=== PATIENT | female | born 1965 | race Caucasian/White ===

== ENCOUNTER 2016-04-22 11:55 | Emergency (ER) | payer MEDICARE, OTHER ==
[2016-04-22 12:04] VITALS: BP 129/93
[2016-04-22] MEDS ORDERED: NALBUPHINE HCL 20 MG/ML AMPUL IV ONE (12:46)
[2016-04-22] MEDS ORDERED: NORMAL SALINE 1,000 ML IV ONE (12:46)
[2016-04-22] MEDS ORDERED: diphenhydrAMINE HCL 50 MG/ML VIAL IV ONE (12:46)
[2016-04-22] MEDS ORDERED: PROMETHAZINE HCL 25 MG in DEXTROSE 5 % IN WATER 50 ML IV ONE ×2 (12:46)
[2016-04-22] MEDS ORDERED: NALBUPHINE HCL 20 MG/ML AMPUL ONE (12:53)
[2016-04-22] MEDS ORDERED: diphenhydrAMINE HCL 50 MG/ML VIAL ONE (12:53)
--- NOTE | 2016-04-22 13:29 | ERNOTE ---
Headache ER HPI - Narrative Date of Service: 04/22/16 - General Presenting Symptoms: headache Time Seen by Provider: 04/22/16 12:42 Source: patient Exam Limitations: no limitations - Immun/Allergies/Home Medications Immunizations: IMMUNIZATION HX Immunizations Up to Date Yes History of Influenza Vaccine No Hx Pneumococcal Vaccination No Allergies/Adverse Reactions: Allergies diclofenac sodium [From Voltaren] Allergy (Intermediate, Verified 04/22/16 12:04 ) seizure paroxetine HCl [From Paxil] Allergy (Mild, Verified 04/22/16 12:04) rash venlafaxine HCl [From Effexor] Allergy (Mild, Verified 04/22/16 12:04) rash ziprasidone HCl [From Geodon] Adverse Reaction (Severe, Verified 04/22/16 12:04) Itching ziprasidone mesylate [From Geodon] Adverse Reaction (Severe, Verified 04/22/16 12:04) Itching sumatriptan [From Imitrex] Adverse Reaction (Intermediate, Verified 04/22/16 12: 04) Nausea sumatriptan succinate [From Imitrex] Adverse Reaction (Intermediate, Verified 12:04) Nausea ketorolac tromethamine [From Toradol] Adverse Reaction (Mild, Verified 04/22/16 12:04) Vomiting tramadol Adverse Reaction (Mild, Verified 04/22/16 12:04) Vomiting Home Medications: HOME MEDICATIONS ALPRAZolam [Xanax] 1 mg PO QID #120 tab 03/23/15 [Last Taken 04/06/15] Citalopram Hydrobromide [Citalopram HBr] 20 mg PO DAILY 01/22/16 [Last Taken 02/25] Albuterol Sulfate/Ipratropium [Duoneb 2.5-0.5MG/3ML Soln] 3 ml IH QID #120 vial 03/01/16 [Last Taken Unknown] Nebulizer [Compact Ultrasonic Nebulizer] 1 each MC QID #1 kit 03/01/16 [Last Taken Unknown] - History of Present Illness Narrative: Pt. comes in with c/o R temporal and parietal headache that started three days ago. Pt. states that she has had migraines in the past and this feels similar with nausea, pain, photophobia and eye pain. Pt. denies that this is the worst headache ever or vision changes. Review of Systems - Review of Systems Constitutional: Present: no symptoms reported. Absent: recent illness, fever, chills, fatigue, malaise EYE: Present: no symptoms reported ENT: Present: no symptoms reported Respiratory: Present: no symptoms reported. Absent: shortness of breath, cough , wheezing Cardiology: Present: no symptoms reported Gastrointestinal/Abdominal: Present: no symptoms reported. Absent: nausea, vomiting, diarrhea Genitourinary: Present: no symptoms reported Musculoskeletal: Present: no symptoms reported. Absent: back pain, joint pain Skin: Present: no symptoms reported Neurological: Present: headache. Absent: dizziness/light-headedness, numbness, tingling All Other Systems: All systems neg except as marked - Patient's Past Medical History Patient History - Medical: Anxiety, Depression Patient History - Cardiac/Respiratory: Asthma, COPD Patient History - Cancer: No Hx of Cancer Patient History - Surgical Procedures: - Family History Mother Family History - Medical: Diabetes Type 2 Insulin Dependent, Other - Social History Living Situations: home Does anyone smoke in the home?: Yes Alcohol Use: heavy Drug Use: marijuana, other Physical Exam - Physical Exam General Appearance: Present: wd/wn, alert, no apparent distress Eye Exam: Normal inspection: bilateral, PERRL: bilateral, EOMI: bilateral Ears, Nose, Throat: Present: normal ENT inspection, hearing grossly normal, normal pharynx Neck: Present: normal inspection, nontender. 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 Absent: pallor, skin rash ED Progress - Vital Signs Patient's Vital Signs:: I have reviewed the patient's vital signs. Vital Signs: Vital Signs 04/22/16 11:58 Temperature 35.7 C L Pulse Rate 83 Respiratory 12 Rate Blood Pressure 129/93 O2 Sat by Pulse 97 Oximetry - Progress/Reassessment Chief Complaint: Headache Progress:: Improved Departure Clinical Impression: Migraine Qualifiers: Migraine type: without aura Status migrainosus presence: without status migrainosus Intractability: not intractable Qualified Code(s): G43.009 - Migraine without aura, not intractable, without status migrainosus - Departure Disposition: Home self-care Condition: Good Instructions: Recurrent Migraine Headache, [id number] Additional Instructions: Please follow up with your primary provider in 2-3 days
== END 2016-04-22 14:30 | disposition home or self-care (01) ==
LOC: ER 11:55
DX: G43.009 Migraine without aura, not intractable, without status migrainosus (principal); F41.1 Generalized anxiety disorder

== ENCOUNTER 2016-04-29 14:00 | Emergency (ER) | payer MEDICARE, OTHER ==
[2016-04-29 14:14] VITALS: BP 126/105
[2016-04-29] MEDS ORDERED: diphenhydrAMINE HCL 50 MG/ML VIAL IM ONE (14:57)
[2016-04-29] MEDS ORDERED: PROMETHAZINE HCL 25 MG/ML AMPUL IM ONE (14:57)
[2016-04-29] MEDS ORDERED: NALBUPHINE HCL 20 MG/ML AMPUL IM ONE (14:57)
--- NOTE | 2016-04-29 15:09 | ERNOTE ---
Headache ER HPI - Narrative Date of Service: 04/29/16 - General Presenting Symptoms: headache Time Seen by Provider: 04/29/16 14:51 Source: patient Exam Limitations: no limitations - Immun/Allergies/Home Medications Immunizations: IMMUNIZATION HX Immunizations Up to Date Yes History of Influenza Vaccine No Hx Pneumococcal Vaccination No Allergies/Adverse Reactions: Allergies diclofenac sodium [From Voltaren] Allergy (Intermediate, Verified 04/29/16 14:13 ) seizure paroxetine HCl [From Paxil] Allergy (Mild, Verified 04/29/16 14:13) rash venlafaxine HCl [From Effexor] Allergy (Mild, Verified 04/29/16 14:13) rash ziprasidone HCl [From Geodon] Adverse Reaction (Severe, Verified 04/29/16 14:13) Itching ziprasidone mesylate [From Geodon] Adverse Reaction (Severe, Verified 04/29/16 14:13) Itching sumatriptan [From Imitrex] Adverse Reaction (Intermediate, Verified 04/29/16 14: 13) Nausea sumatriptan succinate [From Imitrex] Adverse Reaction (Intermediate, Verified 14:13) Nausea ketorolac tromethamine [From Toradol] Adverse Reaction (Mild, Verified 04/29/16 14:13) Vomiting tramadol Adverse Reaction (Mild, Verified 04/29/16 14:13) Vomiting Home Medications: HOME MEDICATIONS ALPRAZolam [Xanax] 1 mg PO QID #120 tab 03/23/15 [Last Taken 04/06/15] Citalopram Hydrobromide [Citalopram HBr] 20 mg PO DAILY 01/22/16 [Last Taken 02/25] Albuterol Sulfate/Ipratropium [Duoneb 2.5-0.5MG/3ML Soln] 3 ml IH QID #120 vial 03/01/16 [Last Taken Unknown] Nebulizer [Compact Ultrasonic Nebulizer] 1 each MC QID #1 kit 03/01/16 [Last Taken Unknown] Butalb/Acetaminophen/Caffeine [Fioricet 50-300-40 mg Capsule] 1 each PO TID #6 capsule 04/29/16 [Last Taken Unknown] - Pain Pain Score: 8 - History of Present Illness Narrative: Patient comes due to a headache that is located on the R side of the head. Patient's pain is similar to previous headache. No fever, no trauma, no loss of consciousness, and no change on vision. Patient with no loss of force and sensation. Pain is similar to previous events. Timing of Headache: gradual, still present, persistent Context Headache: Absent: CO exposure, tick bite, insect bite, sick contact, meningitis exposure, recent head injury < 24 hrs ago, recent head injury > 24 hrs, recent travel-outside [place] Quality: Present: throbbing Severity Maximum: Present: severe Severity-Currently: Present: moderate Headache frequency: Present: frequent headaches, similar to previous headache Modifying Factors - (Improves): Reports: other - nothing Modifying Factors - (Worsens): Reports: exposure to light Associated Symptoms: Denies: fever/chills, nausea, vomiting, sweating, nasal congestion, nasal drainage, facial pain, fatigue, weakness, numbness/tingling, vision changes, confusion, light-headedness, dizziness, loss of consciousness, seizures, neck pain/stiffness, speech problems Exacerbated by:: Reports: light, noise, movement Prior Treament: Denies: recently seen Review of Systems - Review of Systems Constitutional: Absent: fever, weakness, malaise EYE: Absent: blurred vision, double vision, vision changes ENT: Absent: ear pain, ear discharge, pulling on ears, nose pain, nose congestion, nasal drainage, sore throat, throat swelling Respiratory: Present: no symptoms reported Cardiology: Present: no symptoms reported Gastrointestinal/Abdominal: Present: no symptoms reported Genitourinary: Present: no symptoms reported Musculoskeletal: Present: no symptoms reported Skin: Present: no symptoms reported Neurological: Present: headache. Absent: anxiety, depressed, dizziness/light- headedness, seizure, weakness, numbness, tingling, tremors, pre-existing deficit Endocrine: Present: no symptoms reported Hematologic/Lymphatic: Present: no symptoms reported Psych: Present: no symptoms reported - Patient's Past Medical History Patient History - Medical: Anxiety, Depression Patient History - Cardiac/Respiratory: Asthma, COPD Patient History - Cancer: No Hx of Cancer Patient History - Surgical Procedures: - Family History Mother Family History - Medical: Diabetes Type 2 Insulin Dependent, Other - Social History Living Situations: home Does anyone smoke in the home?: Yes Alcohol Use: heavy Drug Use: marijuana, other Physical Exam - Physical Exam General Appearance: Present: wd/wn, alert, no apparent distress Eye Exam: Normal inspection: bilateral, PERRL: bilateral, EOMI: bilateral Ears, Nose, Throat: Present: normal ENT inspection, hearing grossly normal Neck: Present: normal inspection, nontender Respiratory: Present: no respiratory distress, normal breath sounds, no accessory muscle use, chest nontender, lungs clear Cardiovascular/Chest: Present: regular rate, rhythm, no murmur, normal peripheral pulses Gastrointestinal/Abdominal: Present: normal bowel sounds, nontender, nondistended, soft, no organomegaly Extremity Exam: Present: normal inspection, non-tender, no edema, normal range of motion Neurological Exam: Present: alert, oriented, 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 Absent: normal cerebellar test, facial droop, motor weakness, disoriented to person, disoriented to time, disoriented to place, disoriented to situation DTR: N=norm/NB=norm/brisk/A=abs/DD=dull/dimin/HC=hyperactive: Bicep (R): Normal , Bicep (L): Normal, Knee (R): Normal, Knee (L): Normal Skin Exam: Absent: diaphoresis, cyanosis, jaundice, pallor, skin rash Lymphatic Exam: Present: no adenopathy ED Progress - Date and Time Seen: Date and Time: 04/29/16 15:04 Patient with a full mental status, no gross neurologic deficits, and with Hx of chronic headaches. Patient at the moment has no Hx of Tx, no fever, and no changes on her usual headache. Patient is to follow up with her PCP. - Vital Signs Patient's Vital Signs:: I have reviewed the patient's vital signs. Vital Signs: Vital Signs 04/29/16 14:11 Temperature 36.3 C L Pulse Rate 100 Respiratory 14 Rate Blood Pressure 126/105 O2 Sat by Pulse 97 Oximetry - Progress/Reassessment Chief Complaint: Headache - Transfer of Care Expected Disposition: Discharge Departure Clinical Impression: Migraine Qualifiers: Migraine type: with aura Status migrainosus presence: without status migrainosus Intractability: not intractable Qualified Code(s): G43.109 - Migraine with aura, not intractable, without status migrainosus - Departure Disposition: Home self-care Condition: Stable Instructions: General Headache Without Cause, Migraine Headache, [id number] Prescriptions: Butalb/Acetaminophen/Caffeine [Fioricet 50-300-40 mg Capsule] 1 each PO TID #6 capsule
[2016-04-29] MEDS ORDERED: PROMETHAZINE HCL 25 MG/ML AMPUL ONE (15:12)
[2016-04-29] MEDS ORDERED: NALBUPHINE HCL 20 MG/ML AMPUL ONE (15:12)
[2016-04-29] MEDS ORDERED: diphenhydrAMINE HCL 50 MG/ML VIAL ONE (15:12)
== END 2016-04-29 15:31 | disposition home or self-care (01) ==
LOC: ER 14:00
DX: G43.109 Migraine with aura, not intractable, without status migrainosus (principal)

== ENCOUNTER 2016-05-19 11:26 | Emergency (ER) | payer MEDICARE, OTHER ==
--- NOTE | 2016-05-19 13:22 | ERNOTE ---
Headache ER HPI - Narrative Date of Service: 05/19/16 - General Presenting Symptoms: "migraine" Time Seen by Provider: 05/19/16 13:00 Source: patient Exam Limitations: no limitations - Immun/Allergies/Home Medications Immunizations: IMMUNIZATION HX Immunizations Up to Date Yes History of Influenza Vaccine No Hx Pneumococcal Vaccination No Allergies/Adverse Reactions: Allergies diclofenac sodium [From Voltaren] Allergy (Intermediate, Verified 05/19/16 11:45 ) seizure paroxetine HCl [From Paxil] Allergy (Mild, Verified 05/19/16 11:45) rash venlafaxine HCl [From Effexor] Allergy (Mild, Verified 05/19/16 11:45) rash ziprasidone HCl [From Geodon] Adverse Reaction (Severe, Verified 05/19/16 11:45) Itching ziprasidone mesylate [From Geodon] Adverse Reaction (Severe, Verified 05/19/16 11:45) Itching sumatriptan [From Imitrex] Adverse Reaction (Intermediate, Verified 05/19/16 11: 45) Nausea sumatriptan succinate [From Imitrex] Adverse Reaction (Intermediate, Verified 11:45) Nausea ketorolac tromethamine [From Toradol] Adverse Reaction (Mild, Verified 05/19/16 11:45) Vomiting tramadol Adverse Reaction (Mild, Verified 05/19/16 11:45) Vomiting Home Medications: HOME MEDICATIONS ALPRAZolam [Xanax] 1 mg PO QID #120 tab 03/23/15 [Last Taken 04/06/15] Citalopram Hydrobromide [Citalopram HBr] 20 mg PO DAILY 01/22/16 [Last Taken 02/25] Albuterol Sulfate/Ipratropium [Duoneb 2.5-0.5MG/3ML Soln] 3 ml IH QID #120 vial 03/01/16 [Last Taken Unknown] Nebulizer [Compact Ultrasonic Nebulizer] 1 each MC QID #1 kit 03/01/16 [Last Taken Unknown] Butalb/Acetaminophen/Caffeine [Fioricet 50-300-40 mg Capsule] 1 each PO TID #6 capsule 04/29/16 [Last Taken Unknown] Promethazine HCl [Phenergan (Promethazine)] 25 mg PO Q8H #5 tablet 05/19/16 [ Last Taken Unknown] - History of Present Illness Narrative: Patient presents to the ED with a migraine headache. She relates that she gets frequent migraines and this is exactly like prior headaches. Nothing different about this headache. In a location and of a character just like prior migraines. No acute N/T/W. No fever or vomiting. Nausea noted. She relates this is exactly like prior. Right sided. Relates she has been seen in the past for these exact headaches here. Activity at onset: other - none Timing of Headache: other - Onset just like prior headaches. No thunderclap, nothign c/w SAH clinically. Context Headache: Present: other - chronic recurrent migraines Quality: Present: throbbing, other - just like prior migraines Severity Maximum: Present: other - severe, but like prior migraines, not worst SLAOMON of life Headache frequency: Present: chronic headaches Modifying Factors - (Improves): Reports: other - none Modifying Factors - (Worsens): Reports: other - none Associated Symptoms: Reports: nausea. Denies: fever/chills, vomiting, weakness , numbness/tingling, loss of consciousness Prior Treament: Reports: recently seen Review of Systems - Review of Systems Constitutional: Absent: fever EYE: Absent: double vision ENT: Present: no symptoms reported Respiratory: Absent: shortness of breath Cardiology: Absent: chest pain Gastrointestinal/Abdominal: Absent: abdominal pain Neurological: Present: See HPI. Absent: weakness, numbness - Patient's Past Medical History Patient History - Medical: Anxiety, Depression, Headache, Migraines Patient History - Cardiac/Respiratory: No pertinent hx Patient History - Cancer: No Hx of Cancer Patient History - Surgical Procedures: Patient History - Other: None - Family History Mother Family History - Medical: Diabetes Type 2 Insulin Dependent, Other - Social History Living Situations: home Abuse History: No History of abuse Psych History: No pertinent hx Does anyone smoke in the home?: Yes Alcohol Use: heavy Drug Use: marijuana, other - Immunizations Immunizations Up to Date: Yes Hx Pneumococcal Vaccination: No History of Influenza Vaccine: No Physical Exam - Physical Exam General Appearance: Present: alert, no apparent distress, other - sittingon the exam table in well lighted room. 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 Patellar tendon reflexes equal and symmetric. NIH-0 Skin Exam: Present: normal color, warm/dry ED Progress - Vital Signs Patient's Vital Signs:: I have reviewed the patient's vital signs. Vital Signs: Vital Signs 05/19/16 11:43 Pulse Rate 104 H Respiratory 16 Rate Blood Pressure 117/78 O2 Sat by Pulse 97 Oximetry - Progress/Reassessment Chief Complaint: Headache Progress Note-Subjective: 05/19/16 13:20 Will give her phenergan at home. She has long Hx of these SALOMON's. Didn't fill the butalbital script she was given last time she was here, I told her to fill this and she needed to see her doctor. Nothing clinically to suggest SAH, meningitis or change from prior HAs. I discussed warning signs and reasons to return as well as the need for close f/u. Departure Clinical Impression: Migraine headache - Departure Disposition: Home self-care Condition: Stable Instructions: Recurrent Migraine Headache, [id number] Additional Instructions: Rest. FLuids. Follow-up with your doctor 1-2 days for a re-check. Return for fever, numbness, tingling, weakness or if your condition worsens or changes in any way. Prescriptions: Promethazine HCl [Phenergan (Promethazine)] 25 mg PO Q8H #5 tablet
[2016-05-19 13:28] VITALS: BP 114/80
== END 2016-05-19 13:27 | disposition home or self-care (01) ==
LOC: ER 11:26
DX: G43.909 Migraine, unspecified, not intractable, without status migrainosus (principal); F32.9 Major depressive disorder, single episode, unspecified; F41.9 Anxiety disorder, unspecified

== ENCOUNTER 2016-06-17 17:50 | Emergency (ER) | payer MEDICARE, OTHER ==
[2016-06-17 17:56] VITALS: BP 146/87
[2016-06-17] MEDS ORDERED: diphenhydrAMINE HCL 50 MG/ML VIAL ONE (18:17)
[2016-06-17] MEDS ORDERED: METOCLOPRAMIDE HCL 5 MG/ML VIAL ONE (18:17)
[2016-06-17] MEDS: diphenhydrAMINE HCL 50 MG/ML VIAL IM ONE (18:19)
[2016-06-17] MEDS: METOCLOPRAMIDE HCL 5 MG/ML VIAL IM ONE (18:20)
--- OUTSIDE RECORDS SUMMARY | 2016-06-17 18:23 | XMS REPORT | Continuity of Care Document ---
:1965 Author Organization [facility] [place] [address] Care Team Providers Name Role Phone Phys, Not Primary Care Provider Unavailable Source Comments This disclosure is being made pursuant to the Rev program and maynot contain all information available regarding this patient.[email or web address] Active Allergies and Adverse Reactions Allergen Noted Date Severity Reactions Comments Paxil 03/22/2013 Low Rash Toradol 03/22/2013 Low Nausea Only Tramadol 03/22/2013 Low Rash Voltaren 03/22/2013 Other (See Comments) "I don't know, it's been so long since I took it." Current Medications Be aware that medications may not be up to date as of this document. Alwaysverify current medications with the patient. Prescription Sig. Disp. Refills Start Date End Date Status gabapentin Take 300 mg by Active (NEURONTIN) 300 MG mouth 3 (three) capsule times daily. Indications: Aggressive Behavior citalopram (CELEXA) Take 1 tablet by 30 tablet 1 03/23/2013 Active 20 MG tablet mouth daily. Indications: Depression haloperidol (HALDOL) Take 1 tablet by 60 tablet 1 03/23/2013 Active 5 MG tablet mouth 2 (two) times daily. 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
--- OUTSIDE RECORDS SUMMARY | 2016-06-17 18:24 | XMS REPORT | Continuity of Care Document ---
:1965 Author Organization [facility] ([facility]) Address [address] [place] [address] Phone [phone] Care Team Providers Name Role Phone Fernando Pavon Primary Care Provider [phone] Source Comments This disclosure is being made pursuant to the Care Everywhere program, applicable federal and state laws, and may not contain all informaitonavailable regarding this patient.[facility] ([facility]) Active Allergies and Adverse Reactions Allergen Noted Date Severity Reactions Comments Diclofenac Angioedema tongue and lips swell Ketorolac Tromethamine 05/05/2011 Rash Methysergide Urticaria (Hives) Non-Med Tape Urticaria (Hives) paper tape only reacts this way Paroxetine Urticaria (Hives),Nausea & Vomiting Tramadol 05/05/2011 Nausea & Vomiting Venlafaxine Urticaria (Hives) pt said seizure Current Medications Prescription Sig. Disp. Refills Start Date End Date Status vitamin E 400 unit Take 400 Units by Active capsule mouth daily. multivitamin tablet Take 1 tablet by Active mouth daily. citalopram 20 mg Take 1 tablet (20 30 tablet 2 10/08/2015 Active tablet mg total) by mouth daily. silver sulfADIAZINE 1 Apply topically 50 g 1 01/14/2016 Active % cream daily. ALPRAZolam 1 mg tablet Take 1 tablet (1 20 tablet 0 01/14/2016 Active mg total) by mouth 2 times daily as needed. HYDROcodone-acetaminop Take 1 tablet by 15 tablet 0 01/14/2016 Active hen 7.5-325 mg per mouth every 8 tablet hours as needed. Active Problems Problem Noted Date Anxiety disorder 04/18/2014 Hypothyroidism 11/09/2012 Borderline personality disorder 03/31/2009 Overview: History of multiple hospitalizations, suicide attempts by overdose, and pseudohallucinations (a single voice, unrecognized by her, telling her to hurt someone) Resolved Problems Problem Noted Date Resolved Date Suicidal thoughts 01/07/2013 04/18/2014 Benzodiazepine withdrawal 11/09/2012 04/18/2014 Prolonged Q-T interval on ECG 11/09/2012 04/18/2014 Metabolic acidosis, increased anion gap 11/09/2012 04/18/2014 Major depression, recurrent 11/09/2012 04/18/2014 Overdose 11/08/2012 04/18/2014 Suicide attempt 11/08/2012 01/07/2013 Spells 05/05/2011 04/18/2014 Hypersomnia with sleep apnea, unspecified 03/28/2008 04/18/2014 Headache(784.0) 03/21/2008 04/18/2014 HYPERSOMNIA NEC 05/26/2004 04/18/2014 Immunizations Name Dates Previously Given Next Due Influenza, quadrivalent PF 01/14/2016,02/07/2015,01/11/2013 Pneumococcal Polysaccharide, PPSV23 11/09/2012 (Pneumovax 23) Tdap 12/29/2014 Social History Tobacco Use Types Packs/Day Years Used Date Current Every Day Smoker Cigarettes 0.25 30 Smokeless Tobacco: Never Used Tobacco Cessation:Ready to Quit: No; Counseling Given: Yes Comments:electronic cigarettes Alcohol Use Drinks/Week oz/Week Comments No former drinker Last Filed Vital Signs Vital Sign Reading Time Taken Blood Pressure 122/81 01/14/2016 10:07 AM CDT Pulse 95 01/14/2016 10:07 AM CDT Temperature 36.5 C (97.7 F) 01/14/2016 10:07 AM CDT Respiratory Rate 20 01/14/2016 10:07 AM CDT Height 1.6 m (5' 3") 01/07/2013 2:17 AM CDT Weight 79.379 kg (175 lb) 01/14/2016 10:07 AM CDT Body Mass Index 31.01 01/14/2016 10:07 AM CDT Oxygen Saturation 97% 09/04/2015 2:34 PM CDT Plan of Care Health Maintenance Due Date Last Done Comments Hepatitis B Vaccine (1 of 3 - Primary 1965 Series) Lipid Disorder Screening 1985 MMR Vaccine 1985 Mammogram 2007 Cervical Cancer Screening 07/30/2007 07/29/2004, 07/29/2004 Td Vaccine 12/29/2024 12/29/2014 Pneumococcal Vaccine Completed 11/09/2012 Tdap Vaccine Completed 12/29/2014 Influenza Vaccine: Seasonal Completed 01/14/2016, 02/07/2015, 01/11/2013 Results from Last 3 Months Not on file
--- NOTE | 2016-06-17 18:27 | ERNOTE ---
Headache ER HPI - Narrative Date of Service: 06/17/16 - General Presenting Symptoms: "migraine" Time Seen by Provider: 06/17/16 18:10 Source: patient Exam Limitations: no limitations - Immun/Allergies/Home Medications Immunizations: IMMUNIZATION HX Immunizations Up to Date Yes History of Influenza Vaccine No Hx Pneumococcal Vaccination No Allergies/Adverse Reactions: Allergies diclofenac sodium [From Voltaren] Allergy (Intermediate, Verified 06/17/16 17:56 ) seizure paroxetine HCl [From Paxil] Allergy (Mild, Verified 06/17/16 17:56) rash venlafaxine HCl [From Effexor] Allergy (Mild, Verified 06/17/16 17:56) rash ziprasidone HCl [From Geodon] Adverse Reaction (Severe, Verified 06/17/16 17:56) Itching ziprasidone mesylate [From Geodon] Adverse Reaction (Severe, Verified 06/17/16 17:56) Itching sumatriptan [From Imitrex] Adverse Reaction (Intermediate, Verified 06/17/16 17: 56) Nausea sumatriptan succinate [From Imitrex] Adverse Reaction (Intermediate, Verified 17:56) Nausea ketorolac tromethamine [From Toradol] Adverse Reaction (Mild, Verified 06/17/16 17:56) Vomiting tramadol Adverse Reaction (Mild, Verified 06/17/16 17:56) Vomiting Home Medications: HOME MEDICATIONS ALPRAZolam [Xanax] 1 mg PO QID #120 tab 03/23/15 [Last Taken 04/06/15] Citalopram Hydrobromide [Citalopram HBr] 20 mg PO DAILY 01/22/16 [Last Taken 02/25] Albuterol Sulfate/Ipratropium [Duoneb 2.5-0.5MG/3ML Soln] 3 ml IH QID #120 vial 03/01/16 [Last Taken Unknown] Nebulizer [Compact Ultrasonic Nebulizer] 1 each QID #1 kit 03/01/16 [Last Taken Unknown] Doxepin HCl 100 mg PO HS 06/17/16 [Last Taken Unknown] Zolpidem Tartrate [Ambien Cr] 12.5 mg PO HS 06/17/16 [Last Taken Unknown] - History of Present Illness Narrative: Pt. comes in with c/o L temporal migraine that pt. denies as the worst headache she has had. Pt. also states that it is similar to her other migraines and is accompanied by photophobia, nausea, and vomiting, but states that she has been able to keep down sprite. Pt. denies any SOB, CP, diarrhea, numbness, tingling , blurred vision or vision changes. Pt. denies any alleviating factors despite taking Ibuprofen Aspirin and acetamenophen. Pt. also states that she took a vicodin prior to arrival. Review of Systems - Review of Systems Constitutional: Present: no symptoms reported. Absent: weakness, fatigue, malaise EYE: Present: no symptoms reported Respiratory: Present: no symptoms reported. Absent: shortness of breath, cough , wheezing Cardiology: Present: no symptoms reported. Absent: chest pain, palpitations, edema Gastrointestinal/Abdominal: Present: nausea, vomiting. Absent: diarrhea, abdominal pain Genitourinary: Present: no symptoms reported Musculoskeletal: Present: no symptoms reported. Absent: back pain, joint pain Skin: Present: no symptoms reported Neurological: Present: headache. Absent: dizziness/light-headedness, numbness, tingling All Other Systems: All systems neg except as marked - Patient's Past Medical History Patient History - Medical: Anxiety, Depression, Headache, Migraines Patient History - Cardiac/Respiratory: No pertinent hx Patient History - Cancer: No Hx of Cancer Patient History - Surgical Procedures: Patient History - Other: None - Family History Mother Family History - Medical: Diabetes Type 2 Insulin Dependent, Other - Social History Living Situations: home Abuse History: No History of abuse Psych History: No pertinent hx Does anyone smoke in the home?: Yes Alcohol Use: none Drug Use: marijuana, other - Immunizations Immunizations Up to Date: Yes Hx Pneumococcal Vaccination: No History of Influenza Vaccine: No Physical Exam - Physical Exam General Appearance: Present: wd/wn, alert, no apparent distress Eye Exam: Normal inspection: bilateral, PERRL: bilateral, EOMI: bilateral Ears, Nose, Throat: Present: normal ENT inspection, normal pharynx Neck: Present: normal inspection, nontender. Absent: lymphadenopathy (R), lymphadenopathy (L) Respiratory: Present: no respiratory distress, normal breath sounds, no accessory muscle use, chest nontender, lungs clear Cardiovascular/Chest: Present: regular rate, rhythm, no murmur, normal peripheral pulses Gastrointestinal/Abdominal: Present: normal bowel sounds, nontender, nondistended, soft, no organomegaly Back Exam: Present: normal inspection, normal range of motion, no CVA tenderness , no vertebral tenderness Neurological Exam: Present: alert, oriented, normal mood/affect, no motor/ sensory deficits, sales effectiveness manager II-XII nml as tested, normal cerebellar test Skin Exam: Present: normal color, warm/dry. Absent: pallor, skin rash ED Progress - Vital Signs Patient's Vital Signs:: I have reviewed the patient's vital signs. Vital Signs: Vital Signs 06/17/16 06/17/16 17:51 17:53 Temperature 36.3 C L 36.3 C L Pulse Rate 107 H Respiratory 12 Rate Blood Pressure 117/78 146/87 O2 Sat by Pulse 99 Oximetry - Progress/Reassessment Chief Complaint: Headache Progress:: Improved Departure Clinical Impression: Migraine headache Qualifiers: Migraine type: without aura Status migrainosus presence: without status migrainosus Intractability: not intractable Qualified Code(s): G43.009 - Migraine without aura, not intractable, without status migrainosus - Departure Disposition: Home self-care Condition: Good Instructions: Recurrent Migraine Headache, [id number] Additional Instructions: Please follow up with primary provider in 2-3 days.
[2016-06-17] MEDS ORDERED: NALBUPHINE HCL 20 MG/ML AMPUL ONE (18:43)
[2016-06-17] MEDS: NALBUPHINE HCL 20 MG/ML AMPUL IM ONE (18:46)
== END 2016-06-17 19:41 | disposition home or self-care (01) ==
LOC: ER 17:50
DX: G43.009 Migraine without aura, not intractable, without status migrainosus (principal); F41.9 Anxiety disorder, unspecified

== ENCOUNTER 2016-06-25 14:08 | Emergency (ER) | payer MEDICARE, OTHER ==
[2016-06-25 14:16] VITALS: BP 125/64
[2016-06-25] MEDS ORDERED: PROCHLORPERAZINE EDISYLATE 5 MG/ML VIAL IM ONE (16:29)
[2016-06-25] MEDS ORDERED: NALBUPHINE HCL 20 MG/ML AMPUL IM ONE (16:29)
[2016-06-25] MEDS ORDERED: NALBUPHINE HCL 20 MG/ML AMPUL ONE ×2 (16:37→16:42)
[2016-06-25] MEDS ORDERED: PROCHLORPERAZINE EDISYLATE 5 MG/ML VIAL ONE (16:37)
--- OUTSIDE RECORDS SUMMARY | 2016-06-25 16:37 | XMS REPORT | Continuity of Care Document ---
:1965 Author Organization [facility] ([facility]) Address [address] [place] [address] Phone [phone] Care Team Providers Name Role Phone Fernando Pavon Primary Care Provider [phone] Source Comments This disclosure is being made pursuant to the Care Everywhere program, applicable federal and state laws, and may not contain all informaitonavailable regarding this patient.[facility] ([facility]) Active Allergies and Adverse Reactions [...]
--- OUTSIDE RECORDS SUMMARY | 2016-06-25 16:37 | XMS REPORT | Continuity of Care Document ---
:1965 Author Organization [employer] [place] [address] Care Team Providers Name Role Phone Phys, Not Primary Care Provider Unavailable Source Comments This disclosure is being made pursuant to the [employer] program and maynot contain all information available regarding this patient.[employer] Active Allergies and Adverse Reactions Allergen Noted [...] Taken Blood Pressure 101/73 03/23/2013 8:02 AM SAMPLE TAKER OPERATOR Pulse 95 03/23/2013 8:02 AM SAMPLE TAKER OPERATOR Temperature 36.6 C (97.9 F) 03/23/2013 8:00 AM SAMPLE TAKER OPERATOR Respiratory Rate 20 03/23/2013 8:00 AM SAMPLE TAKER OPERATOR Height 1.63 m (5' 4.17") 03/22/2013 1:00 AM SAMPLE TAKER OPERATOR Weight 100.4 kg (221 lb 5.5 oz) 03/22/2013 1:00 AM SAMPLE TAKER OPERATOR Body Mass Index 37.79 03/22/2013 1:00 AM SAMPLE TAKER OPERATOR Oxygen Saturation - - Plan of Care Health Maintenance Due Date Last Done Comments Tetanus/Pertussis (1 - Tdap) 1986 Pap Smear 02/20/1988 Influenza Immunization (#1) 2015 Results from Last 3 Months Not on file
--- NOTE | 2016-06-25 16:39 | ERNOTE ---
Headache ER HPI - Narrative Date of Service: 06/25/16 - General Presenting Symptoms: headache Time Seen by Provider: 06/25/16 16:28 Source: patient Exam Limitations: no limitations - Immun/Allergies/Home Medications Immunizations: IMMUNIZATION HX Immunizations Up to Date Yes History of Influenza Vaccine No Hx Pneumococcal Vaccination No Allergies/Adverse Reactions: Allergies diclofenac sodium [From Voltaren] Allergy (Intermediate, Verified 06/25/16 14:16 ) seizure paroxetine HCl [From Paxil] Allergy (Mild, Verified 06/25/16 14:16) rash venlafaxine HCl [From Effexor] Allergy (Mild, Verified 06/25/16 14:16) rash ziprasidone HCl [From Geodon] Adverse Reaction (Severe, Verified 06/25/16 14:16) Itching ziprasidone mesylate [From Geodon] Adverse Reaction (Severe, Verified 06/25/16 14:16) Itching sumatriptan [From Imitrex] Adverse Reaction (Intermediate, Verified 06/25/16 14: 16) Nausea sumatriptan succinate [From Imitrex] Adverse Reaction (Intermediate, Verified 14:16) Nausea ketorolac tromethamine [From Toradol] Adverse Reaction (Mild, Verified 06/25/16 14:16) Vomiting tramadol Adverse Reaction (Mild, Verified 06/25/16 14:16) Vomiting Home Medications: HOME MEDICATIONS ALPRAZolam [Xanax] 1 mg PO QID #120 tab 03/23/15 [Last Taken 04/06/15] Citalopram Hydrobromide [Citalopram HBr] 20 mg PO DAILY 01/22/16 [Last Taken 02/25] Albuterol Sulfate/Ipratropium [Duoneb 2.5-0.5MG/3ML Soln] 3 ml IH QID #120 vial 03/01/16 [Last Taken Unknown] Nebulizer [Compact Ultrasonic Nebulizer] 1 each MC QID #1 kit 03/01/16 [Last Taken Unknown] Doxepin HCl 100 mg PO HS 06/17/16 [Last Taken Unknown] Zolpidem Tartrate [Ambien Cr] 12.5 mg PO HS 06/17/16 [Last Taken Unknown] - Pain Pain Score: 7 - History of Present Illness Narrative: Presents with c/o frontal headache, onset yesterday. Headache characterized as throbbing. Denies any nausea or vomiting. Pt has h/o frequent ER visits for headaches. Timing of Headache: abrupt, constant Quality: Present: throbbing Severity Maximum: Present: severe Severity-Currently: Present: severe Headache frequency: Present: occasional headaches, similar to previous headache Associated Symptoms: Reports: denies symptoms. Denies: fever/chills, nausea, vomiting, sweating, nasal congestion, nasal drainage, facial pain, numbness/ tingling, vision changes, confusion, light-headedness, dizziness, loss of consciousness, seizures, neck pain/stiffness, speech problems Review of Systems - Review of Systems Constitutional: Present: no symptoms reported EYE: Present: no symptoms reported ENT: Present: no symptoms reported Respiratory: Present: no symptoms reported Cardiology: Present: no symptoms reported Gastrointestinal/Abdominal: Present: no symptoms reported Genitourinary: Present: no symptoms reported Musculoskeletal: Present: no symptoms reported Skin: Present: no symptoms reported Neurological: Present: See HPI Endocrine: Present: no symptoms reported Hematologic/Lymphatic: Present: no symptoms reported Psych: Present: no symptoms reported All Other Systems: All systems neg except as marked - Patient's Past Medical History Patient History - Medical: Anxiety, Depression, Headache, Migraines Patient History - Cardiac/Respiratory: No pertinent hx Patient History - Cancer: No Hx of Cancer Patient History - Surgical Procedures: Patient History - Other: None - Family History Mother Family History - Medical: Diabetes Type 2 Insulin Dependent, Other - Social History Living Situations: home Abuse History: No History of abuse Psych History: No pertinent hx Does anyone smoke in the home?: Yes Alcohol Use: none Drug Use: marijuana, other - Immunizations Immunizations Up to Date: Yes Hx Pneumococcal Vaccination: No History of Influenza Vaccine: No Physical Exam - Physical Exam General Appearance: Present: wd/wn, alert, no apparent distress Eye Exam: Normal inspection: bilateral, PERRL: bilateral, EOMI: bilateral Ears, Nose, Throat: Present: normal ENT inspection Neck: Present: normal inspection, nontender Respiratory: Present: no respiratory distress, normal breath sounds, no accessory muscle use, chest nontender, lungs clear Cardiovascular/Chest: Present: regular rate, rhythm, no murmur Extremity Exam: Present: normal inspection, non-tender, normal range of motion Neurological Exam: Present: alert, oriented, normal mood/affect, no motor/ sensory deficits, credit professional II-XII nml as tested Skin Exam: Present: normal color, warm/dry ED Progress - Vital Signs Patient's Vital Signs:: I have reviewed the patient's vital signs. Vital Signs: Vital Signs 06/25/16 14:10 Temperature 36.3 C L Pulse Rate 89 Respiratory 12 Rate Blood Pressure 125/64 O2 Sat by Pulse 98 Oximetry - Progress/Reassessment Chief Complaint: Headache Progress:: Improved Departure Clinical Impression: Headache Qualifiers: Headache type: unspecified Headache chronicity pattern: episodic headache Intractability: not intractable Qualified Code(s): R51 - Headache - Departure Disposition: Home self-care Condition: Good Instructions: Recurrent Migraine Headache, [id number] Referrals: Odilia Hightower, [Primary Care Provider] -
== END 2016-06-25 17:25 | disposition home or self-care (01) ==
LOC: ER 14:08
DX: R51 Headache (principal); F41.9 Anxiety disorder, unspecified; F32.9 Major depressive disorder, single episode, unspecified

== ENCOUNTER 2016-06-27 18:03 | Emergency (ER) | payer MEDICARE, OTHER ==
[2016-06-27] MEDS ORDERED: DIAZEPAM 5 MG/ML SYRG IM ONE (18:46)
--- OUTSIDE RECORDS SUMMARY | 2016-06-27 18:47 | XMS REPORT | Continuity of Care Document ---
:1965 Author Organization [employer] [place] [address] Care Team Providers Name Role Phone Phys, Not Primary Care Provider Unavailable Source Comments This disclosure is being made pursuant to the [employer] program and maynot contain all information available regarding this patient.[employer] Active Allergies and Adverse Reactions Allergen Noted [...] Taken Blood Pressure 101/73 03/23/2013 8:02 AM ADJUNCT INSTRUCTOR OF WOMEN'S STUDIES Pulse 95 03/23/2013 8:02 AM ADJUNCT INSTRUCTOR OF WOMEN'S STUDIES Temperature 36.6 C (97.9 F) 03/23/2013 8:00 AM ADJUNCT INSTRUCTOR OF WOMEN'S STUDIES Respiratory Rate 20 03/23/2013 8:00 AM ADJUNCT INSTRUCTOR OF WOMEN'S STUDIES Height 1.63 m (5' 4.17") 03/22/2013 1:00 AM ADJUNCT INSTRUCTOR OF WOMEN'S STUDIES Weight 100.4 kg (221 lb 5.5 oz) 03/22/2013 1:00 AM ADJUNCT INSTRUCTOR OF WOMEN'S STUDIES Body Mass Index 37.79 03/22/2013 1:00 AM ADJUNCT INSTRUCTOR OF WOMEN'S STUDIES Oxygen Saturation - - Plan of Care Health Maintenance Due Date Last Done Comments Tetanus/Pertussis (1 - Tdap) 1986 Pap Smear 02/20/1988 Influenza Immunization (#1) 2015 Results from Last 3 Months Not on file
--- OUTSIDE RECORDS SUMMARY | 2016-06-27 18:47 | XMS REPORT | Continuity of Care Document ---
:1965 Author Organization [facility] ([facility]) Address [address] [place] [address] Phone [phone] Care Team Providers Name Role Phone Fernando Pavon Primary Care Provider [phone] Source Comments This disclosure is being made pursuant to the Care Everywhere program, applicable federal and state laws, and may not contain all informaitonavailable regarding this patient.[facility] ([facility]) Active Allergies and Adverse Reactions Allergen Noted [...]
--- NOTE | 2016-06-27 18:48 | ERNOTE ---
Psychological HPI - General Chief Complaint: Anxiety Source: Reports: patient Exam Limitations: Reports: no limitations - Immun/Allergies/Home Medications Allergies/Adverse Reactions: Allergies diclofenac sodium [From Voltaren] Allergy (Intermediate, Verified 06/25/16 14:16 ) seizure paroxetine HCl [From Paxil] Allergy (Mild, Verified 06/25/16 14:16) rash venlafaxine HCl [From Effexor] Allergy (Mild, Verified 06/25/16 14:16) rash ziprasidone HCl [From Geodon] Adverse Reaction (Severe, Verified 06/25/16 14:16) Itching ziprasidone mesylate [From Geodon] Adverse Reaction (Severe, Verified 06/25/16 14:16) Itching sumatriptan [From Imitrex] Adverse Reaction (Intermediate, Verified 06/25/16 14: 16) Nausea sumatriptan succinate [From Imitrex] Adverse Reaction (Intermediate, Verified 14:16) Nausea ketorolac tromethamine [From Toradol] Adverse Reaction (Mild, Verified 06/25/16 14:16) Vomiting tramadol Adverse Reaction (Mild, Verified 06/25/16 14:16) Vomiting Home Medications: HOME MEDICATIONS ALPRAZolam [Xanax] 1 mg PO QID #120 tab 03/23/15 [Last Taken 04/06/15] Citalopram Hydrobromide [Citalopram HBr] 20 mg PO DAILY 01/22/16 [Last Taken 02/25] Albuterol Sulfate/Ipratropium [Duoneb 2.5-0.5MG/3ML Soln] 3 ml QID #120 vial 03/01/16 [Last Taken Unknown] Nebulizer [Compact Ultrasonic Nebulizer] 1 each QID #1 kit 03/01/16 [Last Taken Unknown] Doxepin HCl 100 mg PO HS 06/17/16 [Last Taken Unknown] Zolpidem Tartrate [Ambien Cr] 75 mg PO HS 06/17/16 [Last Taken Unknown] - History of Present Illness Narrative: PAtient states that she has not been doing well for about four months. She has an extensive history of anxiety, depression. Her son is currently in residential and today she found out that he didn't like the home made birthday card she send him last week. She has thoughts of hurting him but not of hurting anyone else. She is depressed but has no plan to hurt herself. She would like medications to help her, couldn't find her xanax and took her mom's this morning. Time Seen by Provider: 06/27/16 18:37 Arrived by: Reports: private car Review of Systems - Review of Systems Constitutional: Absent: recent illness, fever Respiratory: Absent: shortness of breath Cardiology: Absent: chest pain Gastrointestinal/Abdominal: Absent: nausea, vomiting, abdominal pain Skin: Absent: rash Neurological: Present: headache - recurrent Psych: Present: See HPI - Patient's Past Medical History Patient History - Medical: Anxiety, Depression, Headache, Migraines Patient History - Cardiac/Respiratory: No pertinent hx Patient History - Cancer: No Hx of Cancer Patient History - Surgical Procedures: Patient History - Other: None - Family History Mother Family History - Medical: Diabetes Type 2 Insulin Dependent, Other - Social History Living Situations: home Abuse History: No History of abuse Psych History: No pertinent hx Does anyone smoke in the home?: Yes Smoking Status: Current every day smoker Patient requests Smoking Cessation Consult: No Initiate information on Smoking Cessation: No Alcohol Use: none Drug Use: marijuana, other - Immunizations Immunizations Up to Date: Yes Hx Pneumococcal Vaccination: No History of Influenza Vaccine: Yes Physical Exam - Physical Exam General Appearance: Present: wd/wn, alert, no apparent distress, anxious Respiratory: Present: no respiratory distress, normal breath sounds, no accessory muscle use, lungs clear Cardiovascular/Chest: Present: regular rate, rhythm, no murmur Neurological Exam: Present: alert, oriented Skin Exam: Present: normal color, warm/dry ED Progress - Vital Signs Patient's Vital Signs:: I have reviewed the patient's vital signs. Vital Signs: Vital Signs 06/27/16 18:18 Temperature 36.5 C Pulse Rate 108 H Respiratory 18 Rate Blood Pressure 147/116 O2 Sat by Pulse 97 Oximetry - Progress/Reassessment Chief Complaint: Anxiety Progress Note-Subjective: 06/27/16 19:30 patient states that she doesn't feel a lot better yet, seem a lot calmer and sedated 06/27/16 20:10 patient still feels anxious and wants something for her racing thoughts - Transfer of Care Physician Sign Out: Ct Henriquez Receiving Physician: Shaila Mckinney Departure Clinical Impression: Anxiety - Departure Disposition: Home self-care Referrals: Odilia Hightower DO [Primary Care Provider] -
[2016-06-27] MEDS ORDERED: DIAZEPAM 5 MG/ML SYRG ONE (18:49)
[2016-06-27] MEDS ORDERED: HALOPERIDOL LACTATE 5 MG/ML VIAL IM ONE (20:04)
[2016-06-27] MEDS ORDERED: HALOPERIDOL LACTATE 5 MG/ML VIAL ONE (20:14)
[2016-06-27 20:36] VITALS: BP 118/81
== END 2016-06-27 20:42 | disposition home or self-care (01) ==
LOC: ER 18:03
DX: F41.9 Anxiety disorder, unspecified (principal); F17.210 Nicotine dependence, cigarettes, uncomplicated; F32.9 Major depressive disorder, single episode, unspecified

== ENCOUNTER 2016-07-28 11:03 | Emergency (ER) | payer MEDICARE, OTHER ==
[2016-07-28 11:11] VITALS: BP 147/93
[2016-07-28] MEDS ORDERED: NALBUPHINE HCL 20 MG/ML AMPUL IM ONE (11:31)
[2016-07-28] MEDS ORDERED: diphenhydrAMINE HCL 50 MG/ML VIAL IM ONE (11:31)
[2016-07-28] MEDS ORDERED: METOCLOPRAMIDE HCL 5 MG/ML VIAL IM ONE (11:32)
[2016-07-28] MEDS ORDERED: diphenhydrAMINE HCL 50 MG/ML VIAL ONE (11:38)
[2016-07-28] MEDS ORDERED: NALBUPHINE HCL 20 MG/ML AMPUL ONE (11:38)
[2016-07-28] MEDS ORDERED: METOCLOPRAMIDE HCL 5 MG/ML VIAL ONE (11:39)
--- OUTSIDE RECORDS SUMMARY | 2016-07-28 11:39 | XMS REPORT | Continuity of Care Document ---
:1965 Author Organization [facility] ([facility]) Address [address] [place] [address] Phone [phone] Care Team Providers Name Role Phone Fernando Pavon Primary Care Provider [phone] Source Comments This disclosure is being made pursuant to the Care Everywhere program, applicable federal and state laws, and may not contain all informaitonavailable regarding this patient.[facility] ([facility]) Active Allergies and Adverse Reactions Allergen Noted [...]
--- OUTSIDE RECORDS SUMMARY | 2016-07-28 11:39 | XMS REPORT | Continuity of Care Document ---
:1965 Author Organization [employer] Address [place] [address] Care Team Providers Name Role Phone Phys, Not Primary Care Provider Unavailable Source Comments This disclosure is being made pursuant to the [employer] program and maynot contain all information available regarding this patient.[employer] Active Allergies and Adverse Reactions Allergen Noted [...] Taken Blood Pressure 101/73 03/23/2013 8:02 AM DATABASE ARCHITECT Pulse 95 03/23/2013 8:02 AM DATABASE ARCHITECT Temperature 36.6 C (97.9 F) 03/23/2013 8:00 AM DATABASE ARCHITECT Respiratory Rate 20 03/23/2013 8:00 AM DATABASE ARCHITECT Height 1.63 m (5' 4.17") 03/22/2013 1:00 AM DATABASE ARCHITECT Weight 100.4 kg (221 lb 5.5 oz) 03/22/2013 1:00 AM DATABASE ARCHITECT Body Mass Index 37.79 03/22/2013 1:00 AM DATABASE ARCHITECT Oxygen Saturation - - Plan of Care Health Maintenance Due Date Last Done Comments Tetanus/Pertussis (1 - Tdap) 1986 Pap Smear 02/20/1988 Influenza Immunization (#1) 2015 Results from Last 3 Months Not on file
--- NOTE | 2016-07-28 11:43 | ERNOTE ---
Headache ER HPI - Narrative Date of Service: 07/28/16 - General Presenting Symptoms: "migraine" Time Seen by Provider: 07/28/16 11:12 Source: patient Exam Limitations: no limitations - Immun/Allergies/Home Medications Immunizations: IMMUNIZATION HX Immunizations Up to Date Yes History of Influenza Vaccine Yes Hx Pneumococcal Vaccination No Allergies/Adverse Reactions: Allergies diclofenac sodium [From Voltaren] Allergy (Intermediate, Verified 06/25/16 14:16 ) seizure paroxetine HCl [From Paxil] Allergy (Mild, Verified 06/25/16 14:16) rash venlafaxine HCl [From Effexor] Allergy (Mild, Verified 06/25/16 14:16) rash ziprasidone HCl [From Geodon] Adverse Reaction (Severe, Verified 06/25/16 14:16) Itching ziprasidone mesylate [From Geodon] Adverse Reaction (Severe, Verified 06/25/16 14:16) Itching sumatriptan [From Imitrex] Adverse Reaction (Intermediate, Verified 06/25/16 14: 16) Nausea sumatriptan succinate [From Imitrex] Adverse Reaction (Intermediate, Verified 14:16) Nausea ketorolac tromethamine [From Toradol] Adverse Reaction (Mild, Verified 06/25/16 14:16) Vomiting tramadol Adverse Reaction (Mild, Verified 06/25/16 14:16) Vomiting Home Medications: HOME MEDICATIONS ALPRAZolam [Xanax] 1 mg PO QID #120 tab 03/23/15 [Last Taken 04/06/15] Citalopram Hydrobromide [Citalopram HBr] 20 mg PO DAILY 01/22/16 [Last Taken 02/25] Albuterol Sulfate/Ipratropium [Duoneb 2.5-0.5MG/3ML Soln] 3 ml IH QID #120 vial 03/01/16 [Last Taken Unknown] Nebulizer [Compact Ultrasonic Nebulizer] 1 each QID #1 kit 03/01/16 [Last Taken Unknown] Doxepin HCl 100 mg PO HS 06/17/16 [Last Taken Unknown] Zolpidem Tartrate [Ambien Cr] 75 mg PO HS 06/17/16 [Last Taken Unknown] - History of Present Illness Narrative: Pt. comes in with c/o migraine headache in her R temporal lobe which is similar to her chronic migraines in the past. Pt. denies any SOB, CP, vomiting or diarrhea, intolerance of foods or fluids. Pt. states that she has not been sleeping well and has an appointment with her psychiatrist in 2 days for medication evaluation. Pt. denies any alleviating factors despite taking Ibuprofen 800mg two hours ago and for the past three days. She states that she has also taken aspirin and Tylenol. Review of Systems - Review of Systems Constitutional: Present: no symptoms reported. Absent: recent illness, fever, chills, weakness, fatigue EYE: Present: no symptoms reported. Absent: eye pain, double vision, vision changes ENT: Present: no symptoms reported Respiratory: Present: no symptoms reported. Absent: shortness of breath, cough , wheezing Cardiology: Present: no symptoms reported. Absent: chest pain, palpitations, edema Gastrointestinal/Abdominal: Present: nausea. Absent: vomiting, diarrhea Genitourinary: Present: no symptoms reported Musculoskeletal: Present: no symptoms reported. Absent: back pain, joint pain Skin: Present: no symptoms reported Neurological: Present: headache. Absent: dizziness/light-headedness, numbness, tingling All Other Systems: All systems neg except as marked - Patient's Past Medical History Patient History - Medical: Anxiety, Depression, Headache, Migraines Patient History - Cardiac/Respiratory: No pertinent hx Patient History - Cancer: No Hx of Cancer Patient History - Surgical Procedures: Patient History - Other: None LMP (females 10-50): Menopausal - Family History Mother Family History - Medical: Diabetes Type 2 Insulin Dependent, Other - Social History Living Situations: home Abuse History: No History of abuse Psych History: No pertinent hx Does anyone smoke in the home?: Yes Smoking Status: Current every day smoker Have you smoked in the past 12 months: Yes Alcohol Use: occasionally Drug Use: marijuana - Immunizations Immunizations Up to Date: Yes Hx Pneumococcal Vaccination: No History of Influenza Vaccine: Yes Physical Exam - Physical Exam General Appearance: Present: wd/wn, alert, no apparent distress Eye Exam: Normal inspection: bilateral, PERRL: bilateral, EOMI: bilateral Ears, Nose, Throat: Present: normal ENT inspection, normal pharynx Neck: Present: normal inspection, nontender. 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 Absent: pallor, skin rash ED Progress - Vital Signs Patient's Vital Signs:: I have reviewed the patient's vital signs. Vital Signs: Vital Signs 07/28/16 11:07 Temperature 37.4 C Pulse Rate 101 H Respiratory 16 Rate Blood Pressure 147/93 O2 Sat by Pulse 97 Oximetry - Progress/Reassessment Chief Complaint: Headache Departure Clinical Impression: Migraine Qualifiers: Migraine type: unspecified Status migrainosus presence: without status migrainosus Intractability: not intractable Qualified Code(s): G43.909 - Migraine, unspecified, not intractable, without status migrainosus - Departure Disposition: Home self-care Condition: Good Instructions: Recurrent Migraine Headache, [id number] Additional Instructions: Please follow up with primary provider in 2-3 days and your psychiatrist in 2 days as planned.
== END 2016-07-28 12:01 | disposition home or self-care (01) ==
LOC: ER 11:03
DX: G43.909 Migraine, unspecified, not intractable, without status migrainosus (principal); F17.200 Nicotine dependence, unspecified, uncomplicated

== ENCOUNTER 2016-08-15 18:39 | Emergency (ER) | payer MEDICARE, OTHER ==
[2016-08-15 19:14] VITALS: BP 145/106
--- OUTSIDE RECORDS SUMMARY | 2016-08-15 19:33 | XMS REPORT | Continuity of Care Document ---
:1965 Author Organization [facility] [place] [address] Care Team Providers Name Role Phone Phys, Not Primary Care Provider Unavailable Source Comments This disclosure is being made pursuant to the [employer] program and maynot contain all information available regarding this patient.[employer] [employer] Active Allergies and Adverse Reactions Allergen Noted [...] Taken Blood Pressure 101/73 03/23/2013 8:02 AM IT APPLICATIONS MANAGER Pulse 95 03/23/2013 8:02 AM IT APPLICATIONS MANAGER Temperature 36.6 C (97.9 F) 03/23/2013 8:00 AM IT APPLICATIONS MANAGER Respiratory Rate 20 03/23/2013 8:00 AM IT APPLICATIONS MANAGER Height 1.63 m (5' 4.17") 03/22/2013 1:00 AM IT APPLICATIONS MANAGER Weight 100.4 kg (221 lb 5.5 oz) 03/22/2013 1:00 AM IT APPLICATIONS MANAGER Body Mass Index 37.79 03/22/2013 1:00 AM IT APPLICATIONS MANAGER Oxygen Saturation - - Plan of Care Health Maintenance Due Date Last Done Comments Tetanus/Pertussis (1 - Tdap) 1986 Pap Smear 02/20/1988 Influenza Immunization (#1) 2015 Results from Last 3 Months Not on file
--- OUTSIDE RECORDS SUMMARY | 2016-08-15 19:34 | XMS REPORT | Continuity of Care Document ---
:1965 Author Organization [facility] ([facility]) Address [address] [place] [address] Phone [phone] Care Team Providers Name Role Phone Fernando Pavon Primary Care Provider [phone] Source Comments This disclosure is being made pursuant to the Care Everywhere program, applicable federal and state laws, and may not contain all informaitonavailable regarding this patient.[facility] ([facility]) Active Allergies and Adverse Reactions [...]
--- NOTE | 2016-08-15 19:37 | ERNOTE ---
<Jordan Ha - Last Filed: 08/15/16 19:40> Medical Problem HPI - Narrative Date of Service: 08/15/16 - General Chief Complaint: General Assessment Time Seen by Provider: 08/15/16 19:23 Source: patient Exam Limitations: no limitations - Immun/Allergies/Home Medications Immunizations: IMMUNIZATION HX Immunizations Up to Date Yes History of Influenza Vaccine No Hx Pneumococcal Vaccination No Allergies/Adverse Reactions: Allergies diclofenac sodium [From Voltaren] Allergy (Intermediate, Verified 06/25/16 14:16 ) seizure paroxetine HCl [From Paxil] Allergy (Mild, Verified 06/25/16 14:16) rash venlafaxine HCl [From Effexor] Allergy (Mild, Verified 06/25/16 14:16) rash ziprasidone HCl [From Geodon] Adverse Reaction (Severe, Verified 06/25/16 14:16) Itching ziprasidone mesylate [From Geodon] Adverse Reaction (Severe, Verified 06/25/16 14:16) Itching sumatriptan [From Imitrex] Adverse Reaction (Intermediate, Verified 06/25/16 14: 16) Nausea sumatriptan succinate [From Imitrex] Adverse Reaction (Intermediate, Verified 14:16) Nausea ketorolac tromethamine [From Toradol] Adverse Reaction (Mild, Verified 06/25/16 14:16) Vomiting tramadol Adverse Reaction (Mild, Verified 06/25/16 14:16) Vomiting Home Medications: HOME MEDICATIONS ALPRAZolam [Xanax] 1 mg PO QID #120 tab 03/23/15 [Last Taken 04/06/15] Citalopram Hydrobromide [Citalopram HBr] 20 mg PO DAILY 01/22/16 [Last Taken 02/25] Albuterol Sulfate/Ipratropium [Duoneb 2.5-0.5MG/3ML Soln] 3 ml IH QID #120 vial 03/01/16 [Last Taken Unknown] Nebulizer [Compact Ultrasonic Nebulizer] 1 each QID #1 kit 03/01/16 [Last Taken Unknown] Doxepin HCl 100 mg PO HS 06/17/16 [Last Taken Unknown] Zolpidem Tartrate [Ambien Cr] 75 mg PO HS 06/17/16 [Last Taken Unknown] - History of Present History Narrative: Patient presents to the ED for cough, SOB, migraine headache and abdominal cramps. She tells me she is our of her albuterol and she feels like her COPD is acting up. She has been having some increased cough and some colored sputum. No hemoptysis. She also tells me she is having a typical migraine SALOMON for her. Nothing different about this headache than a typical SALOMON for her. SHe also states her abdomen is cramping, she thinks she caught the flu that she has been exposed to, she has been exposed to a diarrhea illness. She denies vomiting, has been having some non-bloody diarrhea. No locaizing abdominal pains. Timing: constant Severity: moderate Modifying Factors - (Improves): Present: other - nothing Modifying Factors - (Worsens): Present: other - nothing Review of Systems - Review of Systems Constitutional: Absent: fever ENT: Absent: nose congestion Respiratory: Present: shortness of breath, cough Cardiology: Absent: chest pain Gastrointestinal/Abdominal: Present: See HPI Genitourinary: Absent: dysuria Neurological: Present: headache. Absent: weakness, numbness All Other Systems: All systems neg except as marked - Patient's Past Medical History Patient History - Medical: Anxiety, Depression, Headache, Migraines Patient History - Cardiac/Respiratory: No pertinent hx Patient History - Cancer: No Hx of Cancer Patient History - Surgical Procedures: Patient History - Other: None - Family History Mother Family History - Medical: Diabetes Type 2 Insulin Dependent, Other - Social History Living Situations: home Abuse History: No History of abuse Psych History: Hx of Anxiety, Hx of Depression, Hx of Psychiatric Tx, Current tx /ever been on anti-depressants or anti-anxiety meds Does anyone smoke in the home?: Yes Smoking Status: Current every day smoker Have you smoked in the past 12 months: Yes Do you dip or chew tobacco: No Patient requests Smoking Cessation Consult: No Initiate information on Smoking Cessation: No Alcohol Use: occasionally Drug Use: marijuana - Immunizations Immunizations Up to Date: Yes Hx Pneumococcal Vaccination: No History of Influenza Vaccine: No Physical Exam - Physical Exam General Appearance: Present: alert, no apparent distress Eye Exam: Normal inspection: bilateral, PERRL: bilateral Ears, Nose, Throat: Present: normal ENT inspection Neck: Present: normal inspection Respiratory: Present: no respiratory distress, no accessory muscle use, other - few faint wheezes, no distress Cardiovascular/Chest: Present: regular rate, rhythm, normal peripheral pulses Gastrointestinal/Abdominal: Present: normal bowel sounds, soft, other - mild epigastric tendenress to deep palpation, no guarding or rebound. No peritoneal signs Back Exam: Present: normal range of motion Extremity Exam: Present: normal inspection, normal range of motion Neurological Exam: Present: alert, normal mood/affect, no motor/sensory deficits , loop cutter II-XII nml as tested, normal cerebellar test. Absent: facial droop, motor weakness Skin Exam: Absent: skin rash ED Progress - Vital Signs Patient's Vital Signs:: I have reviewed the patient's vital signs. Vital Signs: Vital Signs 08/15/16 19:09 Temperature 36.2 C L Pulse Rate 107 H Respiratory 18 Rate Blood Pressure 145/106 O2 Sat by Pulse 95 Oximetry - Progress/Reassessment Chief Complaint: General Assessment - Transfer of Care Physician Sign Out: Jordan aH Receiving Physician: Shaila Mckinney Pending Results: Labs, X-ray results Expected Disposition: Discharge Departure - Departure Clinical Impression: Migraine, COPD (chronic obstructive pulmonary disease) Disposition: Against medical advice Condition: Stable <Shaila Mckinney - Last Filed: 08/15/16 20:09> Medical Problem HPI - Immun/Allergies/Home Medications Immunizations: IMMUNIZATION HX Immunizations Up to Date Yes History of Influenza Vaccine No Hx Pneumococcal Vaccination No ED Progress - Date and Time Seen: Date and Time: 08/15/16 20:09 Prior to this examiner seeing patient, patient decided to sign out AMA and I never saw this patient. - Vital Signs Vital Signs: Vital Signs 08/15/16 08/15/16 19:09 19:46 Temperature 36.2 C L Pulse Rate 107 H 104 H Respiratory 18 18 Rate Blood Pressure 145/106 O2 Sat by Pulse 95 95 Oximetry
[2016-08-15] MEDS ORDERED: PROMETHAZINE HCL 25 MG/ML AMPUL IM ONE (19:42)
[2016-08-15] MEDS ORDERED: ALBUTEROL SULFATE/IPRATROPIUM 3 ML NEBU IH ONE ×2 (19:42→19:43)
[2016-08-15] MEDS ORDERED: diphenhydrAMINE HCL 50 MG/ML VIAL IM ONE (19:43)
[2016-08-15] MEDS ORDERED: diphenhydrAMINE HCL 50 MG/ML VIAL ONE (19:50)
[2016-08-15] MEDS ORDERED: PROMETHAZINE HCL 25 MG/ML AMPUL ONE (19:50)
[2016-08-15 19:55] LABS: Hematocrit 39.4 % (37.0-47.0); Hemoglobin 13.5 gm/dL (12.5-16.0); Mean Cell Volume 90.4 fl (78-100); Mean Corpuscular Hgb Conc 34.3 g/dl (32-36); Mean Platelet Volume 9.5 fl (6.0-9.5); Neutrophil # 5.6 K/mm3 (1.3-6.0); Neutrophil % 53.1 % (42-75.0); Platelet Count 328 K/mm3 (150-450); Red Blood Count 4.36 M/mm3 (4.2-5.4); Red Cell Distribution Width 12.8 % (11.5-14.0); White Blood Count 10.5 K/mm3 (4.0-10.5)
[2016-08-15 20:06] LABS: Albumin * 3.9 gm/dl (3.4-5.0); Anion Gap 15.4 mmol/L (6.8-13.8); BUN/Creatinine Ratio 22.2 (9.0-21.6); Bilirubin, Total 0.1 mg/dL (0.0-1.1); Ca. Corrected For Albumin 9.2 mg/dL (8.4-10.2); Calcium * 9.4 mg/dL (7.9-10.9); Carbon Dioxide 25.3 mmol/L (24-32.6); Potassium 3.7 mmol/L (3.4-4.6); Total Protein 7.4 gm/dL (6.2-8.2)
== END 2016-08-15 20:00 | disposition left against medical advice (07) ==
LOC: ER 18:39
DX: J44.9 Chronic obstructive pulmonary disease, unspecified (principal); G43.909 Migraine, unspecified, not intractable, without status migrainosus; F17.210 Nicotine dependence, cigarettes, uncomplicated; Z53.29 Procedure and treatment not carried out because of patient's decision for other reasons

== ENCOUNTER 2016-08-16 07:37 | Emergency (ER) | payer MEDICARE, OTHER ==
[2016-08-16 07:49] VITALS: BP 135/91
[2016-08-16] MEDS ORDERED: NALBUPHINE HCL 20 MG/ML AMPUL IM ONE (07:58)
[2016-08-16] MEDS ORDERED: PROMETHAZINE HCL 25 MG/ML AMPUL IM ONE (07:58)
[2016-08-16] MEDS ORDERED: PROMETHAZINE HCL 25 MG/ML AMPUL ONE (08:00)
[2016-08-16] MEDS ORDERED: NALBUPHINE HCL 20 MG/ML AMPUL ONE (08:00)
--- OUTSIDE RECORDS SUMMARY | 2016-08-16 08:01 | XMS REPORT | Continuity of Care Document ---
:1965 Author Organization [facility] [place] [address] Care Team Providers Name Role Phone Phys, Not Primary Care Provider Unavailable Source Comments This disclosure is being made pursuant to the [employer] program and maynot contain all information available regarding this patient.[employer] Active Allergies and Adverse Reactions Allergen Noted [...] Taken Blood Pressure 101/73 03/23/2013 8:02 AM SENIOR HR MANAGER Pulse 95 03/23/2013 8:02 AM SENIOR HR MANAGER Temperature 36.6 C (97.9 F) 03/23/2013 8:00 AM SENIOR HR MANAGER Respiratory Rate 20 03/23/2013 8:00 AM SENIOR HR MANAGER Height 1.63 m (5' 4.17") 03/22/2013 1:00 AM SENIOR HR MANAGER Weight 100.4 kg (221 lb 5.5 oz) 03/22/2013 1:00 AM SENIOR HR MANAGER Body Mass Index 37.79 03/22/2013 1:00 AM SENIOR HR MANAGER Oxygen Saturation - - Plan of Care Health Maintenance Due Date Last Done Comments Tetanus/Pertussis (1 - Tdap) 1986 Pap Smear 02/20/1988 Influenza Immunization (#1) 2015 Results from Last 3 Months Not on file
--- OUTSIDE RECORDS SUMMARY | 2016-08-16 08:01 | XMS REPORT | Continuity of Care Document ---
:1965 Author Organization [facility] ([facility]) Address [address] [place] [address] Phone [phone] Care Team Providers Name Role Phone Fernando Pavon Primary Care Provider [phone] Source Comments This disclosure is being made pursuant to the Care Everywhere program, applicable federal and state laws, and may not contain all informaitonavailable regarding this patient.[facility] ([facility]) Active Allergies and Adverse Reactions [...]
--- NOTE | 2016-08-16 08:07 | ERNOTE ---
Headache ER HPI - Narrative Date of Service: 08/16/16 - General Presenting Symptoms: "migraine" Time Seen by Provider: 08/16/16 07:55 Source: patient Exam Limitations: no limitations - Immun/Allergies/Home Medications Immunizations: IMMUNIZATION HX Immunizations Up to Date Yes History of Influenza Vaccine No Hx Pneumococcal Vaccination No Allergies/Adverse Reactions: Allergies diclofenac sodium [From Voltaren] Allergy (Intermediate, Verified 08/16/16 07:49 ) seizure paroxetine HCl [From Paxil] Allergy (Mild, Verified 08/16/16 07:49) rash venlafaxine HCl [From Effexor] Allergy (Mild, Verified 08/16/16 07:49) rash ziprasidone HCl [From Geodon] Adverse Reaction (Severe, Verified 08/16/16 07:49) Itching ziprasidone mesylate [From Geodon] Adverse Reaction (Severe, Verified 08/16/16 07:49) Itching sumatriptan [From Imitrex] Adverse Reaction (Intermediate, Verified 08/16/16 07: 49) Nausea sumatriptan succinate [From Imitrex] Adverse Reaction (Intermediate, Verified 07:49) Nausea ketorolac tromethamine [From Toradol] Adverse Reaction (Mild, Verified 08/16/16 07:49) Vomiting tramadol Adverse Reaction (Mild, Verified 08/16/16 07:49) Vomiting Home Medications: HOME MEDICATIONS ALPRAZolam [Xanax] 1 mg PO QID #120 tab 03/23/15 [Last Taken 04/06/15] Citalopram Hydrobromide [Citalopram HBr] 20 mg PO DAILY 01/22/16 [Last Taken 02/25] Albuterol Sulfate/Ipratropium [Duoneb 2.5-0.5MG/3ML Soln] 3 ml IH QID #120 vial 03/01/16 [Last Taken Unknown] Nebulizer [Compact Ultrasonic Nebulizer] 1 each QID #1 kit 03/01/16 [Last Taken Unknown] Doxepin HCl 100 mg PO HS 06/17/16 [Last Taken Unknown] Zolpidem Tartrate [Ambien Cr] 75 mg PO HS 06/17/16 [Last Taken Unknown] Albuterol Sulfate [Proair Hfa] 2 puff IH QID PRN #1 inhaler 08/16/16 [Last Taken Unknown] - History of Present Illness Narrative: Patient presents to the ED for "migraine" She was he here yesterday when I saw her and had multiple complaints. I ordered labs and CXR bu5rt she left AMA. She is back today wanting treatment for her migraine SALOMON. She states she is no longer SOB and her abdominal pain is resolved. She only wantes a re fill of her ProAir and treatment for her migraine. She deines fever. No acute focal N/ T/W. No head injury. She states this is exactly like her prior migraine HAs, nothing different about it. Not worse SALOMON of life. She states she gets phenergan and Nubain. Timing of Headache: gradual, other - not thunderclap Context Headache: Absent: meningitis exposure, recent head injury > 24 hrs Quality: Present: other - jist like migraine Severity-Currently: Present: moderate Headache frequency: Present: frequent headaches, similar to previous headache Modifying Factors - (Improves): Reports: other - nothing Modifying Factors - (Worsens): Reports: other - nothing Associated Symptoms: Reports: nausea. Denies: fever/chills, weakness, vision changes, loss of consciousness Prior Treament: Reports: recently seen Review of Systems - Review of Systems Constitutional: Absent: fever EYE: Absent: vision changes ENT: Present: no symptoms reported Respiratory: Present: other - SOB from yesterday resolvd Cardiology: Absent: chest pain Gastrointestinal/Abdominal: Present: other - abdominal pain from yesterady resolved Genitourinary: Present: no symptoms reported - Patient's Past Medical History Patient History - Medical: Anxiety, Depression, Headache, Migraines Patient History - Cardiac/Respiratory: No pertinent hx Patient History - Cancer: No Hx of Cancer Patient History - Surgical Procedures: Patient History - Other: None - Family History Mother Family History - Medical: Diabetes Type 2 Insulin Dependent, Other - Social History Living Situations: home Abuse History: No History of abuse Psych History: Hx of Anxiety, Hx of Depression, Hx of Psychiatric Tx, Current tx /ever been on anti-depressants or anti-anxiety meds Does anyone smoke in the home?: Yes Alcohol Use: none Drug Use: none, marijuana - Immunizations Immunizations Up to Date: Yes Hx Pneumococcal Vaccination: No History of Influenza Vaccine: No Physical Exam - Physical Exam General Appearance: Present: alert, no apparent distress Eye Exam: Normal inspection: bilateral, PERRL: bilateral Ears, Nose, Throat: Present: normal ENT inspection Neck: Present: normal inspection Respiratory: Present: no respiratory distress, normal breath sounds, no accessory muscle use, lungs clear Cardiovascular/Chest: Present: regular rate, rhythm Gastrointestinal/Abdominal: Present: normal bowel sounds, nontender, soft, no organomegaly Back Exam: Present: normal range of motion Extremity Exam: Present: normal range of motion Neurological Exam: Present: alert, normal mood/affect, no motor/sensory deficits , 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 Absent: facial droop, motor weakness Skin Exam: Present: normal color, warm/dry. Absent: skin rash ED Progress - Vital Signs Patient's Vital Signs:: I have reviewed the patient's vital signs. Vital Signs: Vital Signs 08/16/16 07:46 Temperature 36.9 C Pulse Rate 97 Respiratory 12 Rate Blood Pressure 135/91 O2 Sat by Pulse 97 Oximetry - Progress/Reassessment Chief Complaint: Headache Progress Note-Subjective: 08/16/16 08:03 Patient does not wish to have the laBS OR cxr that I ordered yesterday as those Sx are gone. I offered the testing still but she declines and understands risks and benefits. Nothing to suggest meningitis or SAH. She only wants meds for her SALOMON (same as recurrent headaches) and to go home. No neuro deficits. nothign to suggest need for head CT or LP. I disucssed warning signs and reasons to return as well as the need for close f/u. Departure Clinical Impression: Migraine - Departure Disposition: Home self-care Condition: Stable Instructions: Recurrent Migraine Headache Additional Instructions: Rest. Fluids. See your doctor within 3 days for a re-check. Return for fever , weakness or if your condition worsens or changes in any way. Prescriptions: Albuterol Sulfate [Proair Hfa] 2 puff IH QID PRN #1 inhaler PRN Reason: Shortness Of Breath
== END 2016-08-16 08:12 | disposition home or self-care (01) ==
LOC: ER 07:37
DX: G43.909 Migraine, unspecified, not intractable, without status migrainosus (principal); Z57.31 Occupational exposure to environmental tobacco smoke; F41.8 Other specified anxiety disorders

== ENCOUNTER 2016-08-18 12:26 | Emergency (ER) | payer MEDICARE, OTHER ==
[2016-08-18 12:38] VITALS: BP 139/75
--- OUTSIDE RECORDS SUMMARY | 2016-08-18 13:01 | XMS REPORT | Continuity of Care Document ---
:1965 Author Organization [facility] [place] [address] Care Team Providers Name Role Phone Phys, Not Primary Care Provider Unavailable Source Comments This disclosure is being made pursuant to the [employer] program and maynot contain all information available regarding this patient.[employer] [employer] Active Allergies and Adverse Reactions Allergen Noted [...] Taken Blood Pressure 101/73 03/23/2013 8:02 AM ALGOLOGIST Pulse 95 03/23/2013 8:02 AM ALGOLOGIST Temperature 36.6 C (97.9 F) 03/23/2013 8:00 AM ALGOLOGIST Respiratory Rate 20 03/23/2013 8:00 AM ALGOLOGIST Height 1.63 m (5' 4.17") 03/22/2013 1:00 AM ALGOLOGIST Weight 100.4 kg (221 lb 5.5 oz) 03/22/2013 1:00 AM ALGOLOGIST Body Mass Index 37.79 03/22/2013 1:00 AM ALGOLOGIST Oxygen Saturation - - Plan of Care Health Maintenance Due Date Last Done Comments Tetanus/Pertussis (1 - Tdap) 1986 Pap Smear 02/20/1988 Influenza Immunization (#1) 2015 Results from Last 3 Months Not on file
--- OUTSIDE RECORDS SUMMARY | 2016-08-18 13:02 | XMS REPORT | Continuity of Care Document ---
:1965 Author Organization [facility] ([facility]) Address [address] [place] [address] Phone [phone] Care Team Providers Name Role Phone Fernando Pavon Primary Care Provider [phone] Source Comments This disclosure is being made pursuant to the Care Everywhere program, applicable federal and state laws, and may not contain all informaitonavailable regarding this patient.[facility] ([facility]) Active Allergies and Adverse Reactions Allergen [...]
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
== END 2016-08-18 14:21 | disposition home or self-care (01) ==
LOC: ER 12:26
DX: F60.3 Borderline personality disorder (principal); R45.4 Irritability and anger; F17.210 Nicotine dependence, cigarettes, uncomplicated; F41.9 Anxiety disorder, unspecified; F32.9 Major depressive disorder, single episode, unspecified
CPT/HCPCS: 36415; 99282; G0481

== ENCOUNTER 2016-09-03 11:29 | Emergency (ER) | payer MEDICARE, OTHER ==
[2016-09-03 11:36] VITALS: BP 132/95
[2016-09-03] MEDS ORDERED: NALBUPHINE HCL 20 MG/ML AMPUL IM ONE (13:25)
[2016-09-03] MEDS ORDERED: PROMETHAZINE HCL 50 MG/ML AMPUL IM ONE ×2 (13:25→13:31)
--- NOTE | 2016-09-03 13:28 | ERNOTE ---
Headache ER HPI - General Presenting Symptoms: "migraine" Time Seen by Provider: 09/03/16 13:18 Source: patient Exam Limitations: no limitations - Immun/Allergies/Home Medications Immunizations: IMMUNIZATION HX Immunizations Up to Date Yes History of Influenza Vaccine No Hx Pneumococcal Vaccination No Allergies/Adverse Reactions: Allergies diclofenac sodium [From Voltaren] Allergy (Intermediate, Verified 09/03/16 11:36 ) seizure paroxetine HCl [From Paxil] Allergy (Mild, Verified 09/03/16 11:36) rash venlafaxine HCl [From Effexor] Allergy (Mild, Verified 09/03/16 11:36) rash ziprasidone HCl [From Geodon] Adverse Reaction (Severe, Verified 09/03/16 11:36) Itching ziprasidone mesylate [From Geodon] Adverse Reaction (Severe, Verified 09/03/16 11:36) Itching sumatriptan [From Imitrex] Adverse Reaction (Intermediate, Verified 09/03/16 11: 36) Nausea sumatriptan succinate [From Imitrex] Adverse Reaction (Intermediate, Verified 11:36) Nausea ketorolac tromethamine [From Toradol] Adverse Reaction (Mild, Verified 09/03/16 11:36) Vomiting tramadol Adverse Reaction (Mild, Verified 09/03/16 11:36) Vomiting Home Medications: HOME MEDICATIONS ALPRAZolam [Xanax] 1 mg PO QID #120 tab 03/23/15 [Last Taken 04/06/15] Albuterol Sulfate/Ipratropium [Duoneb 2.5-0.5MG/3ML Soln] 3 ml IH QID #120 vial 03/01/16 [Last Taken Unknown] Nebulizer [Compact Ultrasonic Nebulizer] 1 each MC QID #1 kit 03/01/16 [Last Taken Unknown] Albuterol Sulfate [Proair Hfa] 2 puff IH QID PRN #1 inhaler 08/16/16 [Last Taken Unknown] - History of Present Illness Narrative: Patient has had a right sided migraine headache since yesterday morning Date (Duration): 09/02/16 Timing of Headache: gradual Quality: Present: achy Severity Maximum: Present: moderate Headache frequency: Present: chronic headaches Modifying Factors - (Improves): Reports: medication Modifying Factors - (Worsens): Reports: exposure to light Exacerbated by:: Denies: light, noise Review of Systems - Review of Systems Constitutional: Absent: recent illness, fever, chills EYE: Absent: vision changes ENT: Absent: sore throat Respiratory: Absent: shortness of breath Gastrointestinal/Abdominal: Present: vomiting - yesterday, able to keep fluids down Genitourinary: Present: no symptoms reported Musculoskeletal: Absent: neck pain Neurological: Present: See HPI, headache. Absent: weakness, numbness - Patient's Past Medical History Patient History - Medical: Anxiety, Depression, Headache, Migraines Patient History - Cardiac/Respiratory: No pertinent hx Patient History - Cancer: No Hx of Cancer Patient History - Surgical Procedures: Patient History - Other: None - Family History Mother Family History - Medical: Diabetes Type 2 Insulin Dependent, Other - Social History Living Situations: home Abuse History: No History of abuse Psych History: Hx of Anxiety, Hx of Depression, Hx of Psychiatric Tx, Current tx /ever been on anti-depressants or anti-anxiety meds Does anyone smoke in the home?: Yes Smoking Status: Current every day smoker Alcohol Use: occasionally Drug Use: marijuana - Immunizations Immunizations Up to Date: Yes Hx Pneumococcal Vaccination: No History of Influenza Vaccine: No Physical Exam - Physical Exam General Appearance: Present: wd/wn, alert, no apparent distress Eye Exam: Normal inspection: bilateral, PERRL: bilateral Ears, Nose, Throat: Present: normal ENT inspection, normal pharynx Neck: Present: normal inspection, nontender, supple, full range of motion Respiratory: Present: no respiratory distress, normal breath sounds, no accessory muscle use, lungs clear Cardiovascular/Chest: Present: regular rate, rhythm, no murmur Gastrointestinal/Abdominal: Present: normal bowel sounds, nontender, nondistended, soft Neurological Exam: Present: alert, oriented, normal mood/affect, no motor/ sensory deficits Skin Exam: Present: normal color, warm/dry ED Progress - Vital Signs Patient's Vital Signs:: I have reviewed the patient's vital signs. Vital Signs: Vital Signs 09/03/16 11:31 Temperature 36.6 C Pulse Rate 90 Respiratory 16 Rate Blood Pressure 132/95 O2 Sat by Pulse 98 Oximetry - Progress/Reassessment Chief Complaint: Headache Departure Clinical Impression: Migraine headache Qualifiers: Migraine type: unspecified Status migrainosus presence: without status migrainosus Intractability: not intractable Qualified Code(s): G43.909 - Migraine, unspecified, not intractable, without status migrainosus - Departure Disposition: Home self-care Condition: Good Instructions: Migraine Headache, [id number] Referrals: Paula Alarcon DO [Staff Physician] -
[2016-09-03] MEDS ORDERED: NALBUPHINE HCL 20 MG/ML AMPUL ONE (13:31)
--- OUTSIDE RECORDS SUMMARY | 2016-09-03 13:35 | XMS REPORT | Continuity of Care Document ---
:1965 Author Organization [facility] [place] [address] Care Team Providers Name Role Phone Phys, Not Primary Care Provider Unavailable Source Comments This disclosure is being made pursuant to the [employer] program and maynot contain all information available regarding this patient.[facility] Active Allergies and Adverse Reactions Allergen Noted [...] Taken Blood Pressure 101/73 03/23/2013 8:02 AM AMORTIZATION CLERK Pulse 95 03/23/2013 8:02 AM AMORTIZATION CLERK Temperature 36.6 C (97.9 F) 03/23/2013 8:00 AM AMORTIZATION CLERK Respiratory Rate 20 03/23/2013 8:00 AM AMORTIZATION CLERK Height 1.63 m (5' 4.17") 03/22/2013 1:00 AM AMORTIZATION CLERK Weight 100.4 kg (221 lb 5.5 oz) 03/22/2013 1:00 AM AMORTIZATION CLERK Body Mass Index 37.79 03/22/2013 1:00 AM AMORTIZATION CLERK Oxygen Saturation - - Plan of Care Health Maintenance Due Date Last Done Comments Tetanus/Pertussis (1 - Tdap) 1986 Pap Smear 02/20/1988 Influenza Immunization (#1) 2015 Results from Last 3 Months Not on file
--- OUTSIDE RECORDS SUMMARY | 2016-09-03 13:35 | XMS REPORT | Continuity of Care Document ---
:1965 Author Organization [facility] ([facility]) Address [address] [place] [address] Phone [phone] Care Team Providers Name Role Phone Fernando Pavon Primary Care Provider [phone] Source Comments This disclosure is being made pursuant to the Care Everywhere program, applicable federal and state laws, and may not contain all informaitonavailable regarding this patient.[facility] ([facility]) Active Allergies and Adverse Reactions Allergen [...]
== END 2016-09-03 13:39 | disposition home or self-care (01) ==
LOC: ER 11:29
DX: G43.909 Migraine, unspecified, not intractable, without status migrainosus (principal); F17.210 Nicotine dependence, cigarettes, uncomplicated; F41.9 Anxiety disorder, unspecified

== ENCOUNTER 2016-09-09 16:01 | Emergency (ER) | payer MEDICARE, OTHER ==
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
--- OUTSIDE RECORDS SUMMARY | 2016-09-09 17:32 | XMS REPORT | Continuity of Care Document ---
:1965 Author Organization [facility] [place] [address] Care Team Providers Name Role Phone Phys, Not Primary Care Provider Unavailable Source Comments This disclosure is being made pursuant to the [employer] program and maynot contain all information available regarding this patient.[facility] Active Allergies and Adverse Reactions Allergen Noted [...] Blood Pressure 101/73 03/23/2013 8:02 AM SENIOR COMPENSATION CONSULTANT Pulse 95 03/23/2013 8:02 AM SENIOR COMPENSATION CONSULTANT Temperature 36.6 C (97.9 F) 03/23/2013 8:00 AM SENIOR COMPENSATION CONSULTANT Respiratory Rate 20 03/23/2013 8:00 AM SENIOR COMPENSATION CONSULTANT Height 1.63 m (5' 4.17") 03/22/2013 1:00 AM SENIOR COMPENSATION CONSULTANT Weight 100.4 kg (221 lb 5.5 oz) 03/22/2013 1:00 AM SENIOR COMPENSATION CONSULTANT Body Mass Index 37.79 03/22/2013 1:00 AM SENIOR COMPENSATION CONSULTANT Oxygen Saturation - - Plan of Care Health Maintenance Due Date Last Done Comments Tetanus/Pertussis (1 - Tdap) 1986 Pap Smear 02/20/1988 Influenza Immunization (#1) 2015 Results from Last 3 Months Not on file
--- OUTSIDE RECORDS SUMMARY | 2016-09-09 17:33 | XMS REPORT | Continuity of Care Document ---
:1965 Author Organization [facility] ([facility]) Address [address] [place] [address] Phone [phone] Care Team Providers Name Role Phone Fernando Pavon Primary Care Provider [phone] Source Comments This disclosure is being made pursuant to the Care Everywhere program, applicable federal and state laws, and may not contain all informaitonavailable regarding this patient.[facility] ([facility]) Active Allergies and Adverse Reactions [...]
[2016-09-09] MEDS ORDERED: METHYLPREDNISOLONE ACETATE 80 MG/ML VIAL ONE (17:46)
[2016-09-09] MEDS: METHYLPREDNISOLONE ACETATE 80 MG/ML VIAL IM ONE (17:48)
[2016-09-09 18:22] VITALS: BP 125/83
== END 2016-09-09 18:35 | disposition home or self-care (01) ==
LOC: ER 16:01
DX: M25.512 Pain in left shoulder (principal); M12.812 Other specific arthropathies, not elsewhere classified, left shoulder; F17.210 Nicotine dependence, cigarettes, uncomplicated

== ENCOUNTER 2016-09-14 09:21 | Emergency (ER) | payer MEDICARE, OTHER ==
--- OUTSIDE RECORDS SUMMARY | 2016-09-14 10:27 | XMS REPORT | Continuity of Care Document ---
:1965 Author Organization [email or web address] [place] [address] Care Team Providers Name Role Phone Phys, Not Primary Care Provider Unavailable Source Comments This disclosure is being made pursuant to the [employer] program and maynot contain all information available regarding this patient.[email or web address] Active Allergies and Adverse Reactions Allergen Noted [...] Taken Blood Pressure 101/73 03/23/2013 8:02 AM MAIL DISTRIBUTION SCHEME EXAMINER Pulse 95 03/23/2013 8:02 AM MAIL DISTRIBUTION SCHEME EXAMINER Temperature 36.6 C (97.9 F) 03/23/2013 8:00 AM MAIL DISTRIBUTION SCHEME EXAMINER Respiratory Rate 20 03/23/2013 8:00 AM MAIL DISTRIBUTION SCHEME EXAMINER Height 1.63 m (5' 4.17") 03/22/2013 1:00 AM MAIL DISTRIBUTION SCHEME EXAMINER Weight 100.4 kg (221 lb 5.5 oz) 03/22/2013 1:00 AM MAIL DISTRIBUTION SCHEME EXAMINER Body Mass Index 37.79 03/22/2013 1:00 AM MAIL DISTRIBUTION SCHEME EXAMINER Oxygen Saturation - - Plan of Care Health Maintenance Due Date Last Done Comments Tetanus/Pertussis (1 - Tdap) 1986 Pap Smear 02/20/1988 Influenza Immunization (#1) 2015 Results from Last 3 Months Not on file
--- OUTSIDE RECORDS SUMMARY | 2016-09-14 10:28 | XMS REPORT | Continuity of Care Document ---
:1965 Author Organization [facility] ([facility]) Address [address] [place] [address] Phone [phone] Care Team Providers Name Role Phone Fernando Pavon Primary Care Provider [phone] Source Comments This disclosure is being made pursuant to the Care Everywhere program, applicable federal and state laws, and may not contain all informaitonavailable regarding this patient.[facility] ([facility]) Active Allergies and Adverse Reactions Allergen [...]
--- NOTE | 2016-09-14 10:33 | ERNOTE ---
Upper Extremity HPI - General Time Seen by Provider: 09/14/16 10:18 Source: patient Exam Limitations: no limitations - Immun/Allergies/Home Medications Immunizations: IMMUNIZATION HX Immunizations Up to Date Yes History of Influenza Vaccine No Hx Pneumococcal Vaccination No Allergies/Adverse Reactions: Allergies Allergy/AdvReac Type Severity Reaction Status Date / Time diclofenac sodium Allergy Intermediate seizure Verified 09/14/16 09:39 [From Voltaren] paroxetine HCl [From Paxil] Allergy Mild rash Verified 09/14/16 09:39 venlafaxine HCl Allergy Mild rash Verified 09/14/16 09:39 [From Effexor] ziprasidone HCl [From Geodon] AdvReac Severe Itching Verified 09/14/16 09:39 ziprasidone mesylate AdvReac Severe Itching Verified 09/14/16 09:39 [From Geodon] sumatriptan [From Imitrex] AdvReac Intermediate Nausea Verified 09/14/16 09:39 sumatriptan succinate AdvReac Intermediate Nausea Verified 09/14/16 09:39 [From Imitrex] ketorolac tromethamine AdvReac Mild Vomiting Verified 09/14/16 09:39 [From Toradol] tramadol AdvReac Mild Vomiting Verified 09/14/16 09:39 Home Medications: HOME MEDICATIONS ALPRAZolam [Xanax] 1 mg PO QID #120 tab 03/23/15 [Last Taken 04/06/15] Albuterol Sulfate/Ipratropium [Duoneb 2.5-0.5MG/3ML Soln] 3 ml IH QID #120 vial 03/01/16 [Last Taken Unknown] Nebulizer [Compact Ultrasonic Nebulizer] 1 each MC QID #1 kit 03/01/16 [Last Taken Unknown] Albuterol Sulfate [Proair Hfa] 2 puff IH QID PRN #1 inhaler 08/16/16 [Last Taken Unknown] Methylprednisolone [Medrol Dosepak] 1 mg PO QID #1 tab.ds.pk 09/09/16 [Last Taken Unknown] Ibuprofen [Motrin] 600 mg PO TID PRN #15 tab 09/14/16 [Last Taken Unknown] - History of Present Illness Narrative: Here for persistent left shoulder and arm pain. She was seen here last week and worked up. Denies any new trauma to left shoulder since but she complains that it hurts all the time. Denies any chest pains Review of Systems - Review of Systems Constitutional: Present: no symptoms reported EYE: Present: no symptoms reported ENT: Present: no symptoms reported Respiratory: Present: no symptoms reported Cardiology: Present: no symptoms reported Gastrointestinal/Abdominal: Present: no symptoms reported Genitourinary: Present: no symptoms reported Musculoskeletal: Present: other - pt has no joint swelling, there are no deformities She is tender all over her left shoulder and left upper arm in the biceps region. She is tender in the biceps tendon origin area. she is NOT wearing a sling - Patient's Past Medical History Patient History - Medical: Anxiety, Depression, Headache, Migraines Patient History - Cardiac/Respiratory: No pertinent hx Patient History - Cancer: No Hx of Cancer Patient History - Surgical Procedures: Patient History - Other: None - Family History Mother Family History - Medical: Diabetes Type 2 Insulin Dependent, Other - Social History Living Situations: home Abuse History: No History of abuse Psych History: Hx of Anxiety, Hx of Depression, Hx of Psychiatric Tx, Current tx /ever been on anti-depressants or anti-anxiety meds Does anyone smoke in the home?: Yes Alcohol Use: occasionally Drug Use: marijuana - Immunizations Immunizations Up to Date: Yes Hx Pneumococcal Vaccination: No History of Influenza Vaccine: No Physical Exam - Physical Exam General Appearance: Present: wd/wn, alert, no apparent distress Respiratory: Present: no respiratory distress, normal breath sounds, no accessory muscle use, chest nontender, lungs clear Cardiovascular/Chest: Present: regular rate, rhythm, no murmur, normal peripheral pulses Extremity Exam: Present: other - pt has tenderness all over left shoulder. there is no swelling or deformity notd. No signs of redness, infection or trauma noted. her line decorator distally is normal. She is tender in the area of left biceps tendon region Neurological Exam: Present: alert, oriented, normal mood/affect, no motor/ sensory deficits Skin Exam: Present: normal color, warm/dry ED Progress - Vital Signs Patient's Vital Signs:: I have reviewed the patient's vital signs. Vital Signs: Vital Signs 09/14/16 09:35 Temperature 36.1 C L Pulse Rate 102 H Respiratory 18 Rate Blood Pressure 124/72 O2 Sat by Pulse 97 Oximetry - Progress/Reassessment Chief Complaint: Upper Extremity Injury/Problem Plan - Plan Plan: A review of the patient's x-ray that she had done as read by Dr. Zhang reveals that she has rotator cuff pathology in addition to tenderness in the biceps tendon. Patient will be informed of this she will be placed in a sling and she will be prescribed medication and anti-inflammatories for this pain Departure Clinical Impression: Rotator cuff arthropathy Qualifiers: Laterality: left Qualified Code(s): M12.812 - Other specific arthropathies, not elsewhere classified, left shoulder - Departure Disposition: Home self-care Condition: Fair Instructions: Tendinitis and Tenosynovitis-SportsMed Additional Instructions: Please wear your sling as often as you can and do not lift anything with her left upper extremity. Please take your anti-inflammatories as prescribed. Follow-up with your primary care physician in 48-72 hours Prescriptions: Ibuprofen [Motrin] 600 mg PO TID PRN #15 tab PRN Reason: Pain
[2016-09-14 11:13] VITALS: BP 144/90
== END 2016-09-14 11:04 | disposition home or self-care (01) ==
LOC: ER 09:21
DX: M12.812 Other specific arthropathies, not elsewhere classified, left shoulder (principal)

== ENCOUNTER 2016-09-15 11:18 | Emergency (ER) | payer MEDICARE, OTHER ==
[2016-09-15] MEDS ORDERED: diphenhydrAMINE HCL 50 MG/ML VIAL IV ONE (11:43)
[2016-09-15] MEDS ORDERED: METOCLOPRAMIDE HCL 5 MG/ML VIAL IV ONE ×2 (11:44→12:34)
[2016-09-15] MEDS ORDERED: ALBUTEROL SULFATE 2.5 MG/3 ML VIAL.NEB IH ONE (11:44)
[2016-09-15] MEDS ORDERED: NORMAL SALINE 1,000 ML IV ONE (11:44)
[2016-09-15] MEDS ORDERED: diphenhydrAMINE HCL 50 MG/ML VIAL ONE ×2 (11:45→12:14)
[2016-09-15] MEDS ORDERED: METOCLOPRAMIDE HCL 5 MG/ML VIAL ONE ×2 (11:45→12:23)
[2016-09-15] MEDS ORDERED: ALBUTEROL SULFATE 2.5 MG/0.5 ML VIAL.NEB IH ONE (11:47)
--- NOTE | 2016-09-15 11:57 | ERNOTE ---
Headache ER HPI - Narrative Date of Service: 09/15/16 - General Presenting Symptoms: "migraine" Time Seen by Provider: 09/15/16 11:37 Source: patient Exam Limitations: no limitations - Immun/Allergies/Home Medications Immunizations: IMMUNIZATION HX Immunizations Up to Date Yes History of Influenza Vaccine No Hx Pneumococcal Vaccination No Allergies/Adverse Reactions: Allergies diclofenac sodium [From Voltaren] Allergy (Intermediate, Verified 09/15/16 11:25 ) seizure paroxetine HCl [From Paxil] Allergy (Mild, Verified 09/15/16 11:25) rash venlafaxine HCl [From Effexor] Allergy (Mild, Verified 09/15/16 11:25) rash ziprasidone HCl [From Geodon] Adverse Reaction (Severe, Verified 09/15/16 11:25) Itching ziprasidone mesylate [From Geodon] Adverse Reaction (Severe, Verified 09/15/16 11:25) Itching sumatriptan [From Imitrex] Adverse Reaction (Intermediate, Verified 09/15/16 11: 25) Nausea sumatriptan succinate [From Imitrex] Adverse Reaction (Intermediate, Verified 11:25) Nausea ketorolac tromethamine [From Toradol] Adverse Reaction (Mild, Verified 09/15/16 11:25) Vomiting tramadol Adverse Reaction (Mild, Verified 09/15/16 11:25) Vomiting Home Medications: HOME MEDICATIONS ALPRAZolam [Xanax] 1 mg PO QID #120 tab 03/23/15 [Last Taken 04/06/15] Albuterol Sulfate/Ipratropium [Duoneb 2.5-0.5MG/3ML Soln] 3 ml IH QID #120 vial 03/01/16 [Last Taken Unknown] Nebulizer [Compact Ultrasonic Nebulizer] 1 each MC QID #1 kit 03/01/16 [Last Taken Unknown] Albuterol Sulfate [Proair Hfa] 2 puff IH QID PRN #1 inhaler 08/16/16 [Last Taken Unknown] Methylprednisolone [Medrol Dosepak] 1 mg PO QID #1 tab.ds.pk 09/09/16 [Last Taken Unknown] Ibuprofen [Motrin] 600 mg PO TID PRN #15 tab 09/14/16 [Last Taken Unknown] Doxycycline Monohydrate 100 mg PO BID #20 tablet 09/15/16 [Last Taken Unknown] Phenazopyridine HCl [Pyridium] 100 mg PO TID #6 tab 09/15/16 [Last Taken Unknown ] Sulfamethoxazole/Trimethoprim [Bactrim Ds] 1 tab PO BID #28 tab 09/15/16 [Last Taken Unknown] predniSONE [Prednisone] 3 tab PO DAILY #9 tab 09/15/16 [Last Taken Unknown] - History of Present Illness Narrative: Pt. comes in with c/o headache, dizziness, not feeling well L shoulder pain for over a week. Pt. also states that she has been SOB despite using her nebulizer. Pt. denies any recent illness or injury but was here for the same problems yesterday and states that she tried to get appointments with multiple doctors including orthopedics and they refused to see her. Review of Systems - Review of Systems Constitutional: Present: weakness, fatigue, malaise. Absent: recent illness, fever, chills EYE: Present: no symptoms reported ENT: Present: no symptoms reported Respiratory: Present: no symptoms reported. Absent: shortness of breath, cough , wheezing Cardiology: Present: no symptoms reported. Absent: chest pain, palpitations, edema Gastrointestinal/Abdominal: Present: nausea. Absent: vomiting, diarrhea Genitourinary: Present: no symptoms reported. Absent: frequency, pain, decreased urinary output Musculoskeletal: Present: joint pain - L shoulder Skin: Present: no symptoms reported. Absent: rash, change in hair/nails Neurological: Present: headache. Absent: dizziness/light-headedness, numbness, tingling All Other Systems: All systems neg except as marked - Patient's Past Medical History Patient History - Medical: Anxiety, Depression, Headache, Migraines Patient History - Cardiac/Respiratory: No pertinent hx Patient History - Cancer: No Hx of Cancer Patient History - Surgical Procedures: Patient History - Other: None - Family History Mother Family History - Medical: Diabetes Type 2 Insulin Dependent, Other - Social History Living Situations: home Abuse History: No History of abuse Psych History: Hx of Anxiety, Hx of Depression, Hx of Psychiatric Tx, Current tx /ever been on anti-depressants or anti-anxiety meds Does anyone smoke in the home?: Yes Alcohol Use: occasionally Drug Use: marijuana - Immunizations Immunizations Up to Date: Yes Hx Pneumococcal Vaccination: No History of Influenza Vaccine: No Physical Exam - Physical Exam General Appearance: Present: wd/wn, alert, no apparent distress Eye Exam: Normal inspection: bilateral, PERRL: bilateral, EOMI: bilateral Ears, Nose, Throat: Present: normal ENT inspection, normal pharynx Neck: Present: normal inspection, nontender. Absent: lymphadenopathy (R), lymphadenopathy (L) Respiratory: Present: no respiratory distress, no accessory muscle use, wheezing - throughout Cardiovascular/Chest: Present: regular rate, rhythm, no murmur, normal peripheral pulses Gastrointestinal/Abdominal: Present: normal bowel sounds, nontender, nondistended, soft, no organomegaly Back Exam: Present: normal inspection Extremity Exam: Present: decreased range of motion - beer can positive. Absent : bony tenderness Neurological Exam: Present: alert, oriented, normal mood/affect, no motor/ sensory deficits Skin Exam: Present: cool/dry, pallor ED Progress - Date and Time Seen: Date and Time: 09/15/16 13:37 With no elevation in WBC electrolyte imbalance or severe flank pain that would indicate pyelo I do not see any reason that this cannot be treated outpatient. - Results and Orders Patient's Lab Results:: I have reviewed the patient's lab results. - Vital Signs Patient's Vital Signs:: I have reviewed the patient's vital signs. Vital Signs: Vital Signs 09/15/16 11:22 Temperature 36.7 C Pulse Rate 104 H Respiratory 12 Rate Blood Pressure 141/92 O2 Sat by Pulse 94 Oximetry - X-Ray X-Ray #1 X-Ray: chest Interpretation: Reviewed by me X-ray Comments: RML consolidation - CT/Ultrasound CT/Ultrasound Narrative: CT abd without evidence of kidney stone - Progress/Reassessment Chief Complaint: Headache Progress:: Unchanged Departure Clinical Impression: Cystitis Pneumonia Qualifiers: Pneumonia type: due to unspecified organism Laterality: right Lung location: middle lobe of lung Qualified Code(s): J18.1 - Lobar pneumonia, unspecified organism Rotator cuff arthropathy Qualifiers: Laterality: left Qualified Code(s): M12.812 - Other specific arthropathies, not elsewhere classified, left shoulder COPD (chronic obstructive pulmonary disease) Qualifiers: COPD type: unspecified COPD Qualified Code(s): J44.9 - Chronic obstructive pulmonary disease, unspecified - Departure Disposition: Home self-care Condition: Good Instructions: Tendinitis and Tenosynovitis-SportsMed, Urinary Tract Infection, Adult, [id number], Rotator Cuff Injury, Community-Acquired Pneumonia, Adult, [id number] Additional Instructions: [facility] [place], [place] [address] [phone] 09/21/2016Wednesday at 1:30[place] [address] [place] [address] 3 [phone] 09/21/2016Wednesday at 2:45PM Bring Insurance cards and CD of shoulder xray Increase water intake, Take all medications until finished, Stop smoking, Follow up with the above providers as scheduled, and continue Ibuprofen for pain Prescriptions: Doxycycline Monohydrate 100 mg PO BID #20 tablet Phenazopyridine HCl [Pyridium] 100 mg PO TID #6 tab Sulfamethoxazole/Trimethoprim [Bactrim Ds] 1 tab PO BID #28 tab predniSONE [Prednisone] 3 tab PO DAILY #9 tab
[2016-09-15 12:03] LABS: Hematocrit 40.7 % (37.0-47.0); Hemoglobin 13.9 gm/dL (12.5-16.0); Mean Cell Volume 92.3 fl (78-100); Mean Corpuscular Hemoglobin 31.5 pg (27-31); Mean Corpuscular Hgb Conc 34.2 g/dl (32-36); Neutrophil % 58.8 % (42-75.0); Platelet Count 380 K/mm3 (150-450); Red Blood Count 4.41 M/mm3 (4.2-5.4); Red Cell Distribution Width 12.8 % (11.5-14.0); White Blood Count 10.3 K/mm3 (4.0-10.5)
[2016-09-15] MEDS ORDERED: PROMETHAZINE HCL 25 MG in DEXTROSE 5 % IN WATER 50 ML IV ONE ×2 (12:10)
[2016-09-15 12:14] LABS: Albumin * 3.6 gm/dl (3.4-5.0); Anion Gap 14.3 mmol/L (6.8-13.8); BUN/Creatinine Ratio 14.6 (9.0-21.6); Bilirubin, Total 0.3 mg/dL (0.0-1.1); Ca. Corrected For Albumin 9.3 mg/dL (8.4-10.2); Calcium * 9.3 mg/dL (7.9-10.9); Carbon Dioxide 25.4 mmol/L (24-32.6); Potassium 3.7 mmol/L (3.4-4.6); Total Protein 7.3 gm/dL (6.2-8.2)
--- OUTSIDE RECORDS SUMMARY | 2016-09-15 12:16 | XMS REPORT | Continuity of Care Document ---
:1965 Author Organization [employer] [place] [address] Care Team Providers Name Role Phone Phys, Not Primary Care Provider Unavailable Source Comments This disclosure is being made pursuant to the [employer] program and maynot contain all information available regarding this patient.[employer] Active Allergies and Adverse Reactions Allergen Noted [...] Taken Blood Pressure 101/73 03/23/2013 8:02 AM [facility] Pulse 95 03/23/2013 8:02 AM [facility] Temperature 36.6 C (97.9 F) 03/23/2013 8:00 AM [facility] Respiratory Rate 20 03/23/2013 8:00 AM [facility] Height 1.63 m (5' 4.17") 03/22/2013 1:00 AM [facility] Weight 100.4 kg (221 lb 5.5 oz) 03/22/2013 1:00 AM [facility] Body Mass Index 37.79 03/22/2013 1:00 AM [facility] Oxygen Saturation - - Plan of Care Health Maintenance Due Date Last Done Comments Tetanus/Pertussis (1 - Tdap) 1986 Pap Smear 02/20/1988 Influenza Immunization (#1) 2015 Results from Last 3 Months Not on file
--- OUTSIDE RECORDS SUMMARY | 2016-09-15 12:17 | XMS REPORT | Continuity of Care Document ---
:1965 Author Organization [facility] ([facility]) Address [address] [address] Phone [phone] Care Team Providers Name Role Phone Fernando Pavon Primary Care Provider [phone] Source Comments This disclosure is being made pursuant to the Care Everywhere program, applicable federal and state laws, and may not contain all informaitonavailable regarding this patient.[facility] ([facility]) Active Allergies and [...]
[2016-09-15 12:22] LABS: Urine Bilirubin Negative (NEGATIVE); Urine Blood 250 /ul (NEGATIVE); Urine Ketone 5 mg/dL (NEGATIVE); Urine Protein >=300 mg/dL (NEGATIVE); Urine Specific Gravity 1.025 SP.GR. (1.005-1.010); Urine pH 6.5 pH (5.0-7.0)
[2016-09-15 12:27] LABS: Urine Appearance Turbid; Urine Bacteria TRACE; Urine Color Red; Urine Nitrite Positive (NEGATIVE); Urine RBC >50 /hpf (0-5)
[2016-09-15 12:35] LABS: Cocaine Ur Negative (NEGATIVE); Urine Barbiturate Negative (NEGATIVE); Urine Benzodiazepines Positive (NEGATIVE); Urine Opiates Negative (NEGATIVE); Urine PCP Negative (NEGATIVE); Urine THC Positive (NEGATIVE)
[2016-09-15 14:30] VITALS: BP 139/91
== END 2016-09-15 14:15 | disposition home or self-care (01) ==
LOC: ER 11:18
DX: N30.90 Cystitis, unspecified without hematuria (principal); J18.1 Lobar pneumonia, unspecified organism; M12.812 Other specific arthropathies, not elsewhere classified, left shoulder; J44.9 Chronic obstructive pulmonary disease, unspecified; F41.9 Anxiety disorder, unspecified

== ENCOUNTER 2016-09-19 16:19 | Emergency (ER) | payer MEDICARE, OTHER ==
--- OUTSIDE RECORDS SUMMARY | 2016-09-19 17:46 | XMS REPORT | Continuity of Care Document ---
:1965 Author Organization [employer] Address [place] [address] Care Team Providers Name Role Phone Phys, Not Primary Care Provider Unavailable Source Comments This disclosure is being made pursuant to the [employer] program and maynot contain all information available regarding this patient.[facility] Active Allergies and Adverse Reactions Allergen Noted [...] Taken Blood Pressure 101/73 03/23/2013 8:02 AM SHOE COVERER Pulse 95 03/23/2013 8:02 AM SHOE C[facility] Temperature 36.6 C (97.9 F) 03/23/2013 8:00 AM [facility] C[employer] Respiratory Rate 20 03/23/2013 8:00 AM SHOE COVERER Height 1.63 m (5' 4.17") 03/22/2013 1:00 AM SHOE COVER[facility] Weight 100.4 kg (221 lb 5.5 oz) 03/22/2013 1:00 AM [facility] Body Mass Index 37.79 03/22/2013 1:00 AM SHOE COVER[facility] Oxygen Saturation - - Plan of Care Date Type Specialty Providers Description 09/21/2016 Appointment Orthopedic Surgery Lm Jimenez MD [facility] [address] [phone] (Fax) Health Maintenance Due Date Last Done Comments Tetanus/Pertussis (1 - Tdap) 1986 Pap Smear 02/20/1988 Influenza Immunization (#1) 2015 Results from Last 3 Months Not on file
--- OUTSIDE RECORDS SUMMARY | 2016-09-19 17:46 | XMS REPORT | Continuity of Care Document ---
:1965 Author Organization [facility] ([facility]) Address [address] [address] Phone [phone] Care Team Providers Name Role Phone Fernando Pavon Primary Care Provider [phone] Source Comments This disclosure is being made pursuant to the Care Everywhere program, applicable federal and state laws, and may not contain all informaitonavailable regarding this patient.[facility] ([facility]) Active Allergies and Adverse Reactions [...]
--- NOTE | 2016-09-19 17:58 | ERNOTE ---
Upper Extremity HPI - Narrative Date of Service: 09/19/16 - General Extremities Pain Location: shoulder: left Time Seen by Provider: 09/19/16 17:40 Source: patient Exam Limitations: no limitations - Immun/Allergies/Home Medications Immunizations: IMMUNIZATION HX Immunizations Up to Date Yes History of Influenza Vaccine No Hx Pneumococcal Vaccination No Allergies/Adverse Reactions: Allergies Allergy/AdvReac Type Severity Reaction Status Date / Time diclofenac sodium Allergy Intermediate seizure Verified 09/19/16 16:29 [From Voltaren] paroxetine HCl [From Paxil] Allergy Mild rash Verified 09/19/16 16:29 venlafaxine HCl Allergy Mild rash Verified 09/19/16 16:29 [From Effexor] ziprasidone HCl [From Geodon] AdvReac Severe Itching Verified 09/19/16 16:29 ziprasidone mesylate AdvReac Severe Itching Verified 09/19/16 16:29 [From Geodon] sumatriptan [From Imitrex] AdvReac Intermediate Nausea Verified 09/19/16 16:29 sumatriptan succinate AdvReac Intermediate Nausea Verified 09/19/16 16:29 [From Imitrex] ketorolac tromethamine AdvReac Mild Vomiting Verified 09/19/16 16:29 [From Toradol] tramadol AdvReac Mild Vomiting Verified 09/19/16 16:29 Home Medications: HOME MEDICATIONS ALPRAZolam [Xanax] 1 mg PO QID #120 tab 03/23/15 [Last Taken 04/06/15] Albuterol Sulfate/Ipratropium [Duoneb 2.5-0.5MG/3ML Soln] 3 ml IH QID #120 vial 03/01/16 [Last Taken Unknown] Nebulizer [Compact Ultrasonic Nebulizer] 1 each MC QID #1 kit 03/01/16 [Last Taken Unknown] Albuterol Sulfate [Proair Hfa] 2 puff IH QID PRN #1 inhaler 08/16/16 [Last Taken Unknown] Methylprednisolone [Medrol Dosepak] 1 mg PO QID #1 tab.ds.pk 09/09/16 [Last Taken Unknown] Ibuprofen [Motrin] 600 mg PO TID PRN #15 tab 09/14/16 [Last Taken Unknown] Doxycycline Monohydrate 100 mg PO BID #20 tablet 06/06/17 [Last Taken Unknown] Phenazopyridine HCl [Pyridium] 100 mg PO TID #6 tab 09/15/16 [Last Taken Unknown ] Sulfamethoxazole/Trimethoprim [Bactrim Ds] 1 tab PO BID #28 tab 09/15/16 [Last Taken Unknown] predniSONE [Prednisone] 3 tab PO DAILY #9 tab 09/15/16 [Last Taken Unknown] Methocarbamol [Robaxin] 500 mg PO TID PRN #12 tablet 09/19/16 [Last Taken Unknown] - History of Present Illness Narrative: Patient relaets she has a rotator cuff injury and has an appointment Wednesday for this. She is requesting something for pain to get her through. She relates a fall 4 days ago and a pop in the left shoulder. hurting ever since. She relates she was seen here and had imaging and was set up to see someone else for this. She states she has numbess left arm but this is not acute. No fever. Pain same as what it was but Ibuprofen not helping Worse with movement and palpation. Denies acute weakness or re-injury. No CP or SOB. Occurred: other - 4 days ago Method of Injury: Reports: fell Reason for Fall: Reports: tripped Loss of Consciousness: Reports: no loss of consciousness Modifying Factors - (Improves): Reports: rest Modifying Factors - (Worsens): Reports: movement Associated Symptoms: Reports: tingling. Denies: weakness Other Injuries: Reports: none Prior Treament: Reports: recently seen Review of Systems - Review of Systems Constitutional: Absent: fever Respiratory: Absent: shortness of breath Cardiology: Absent: chest pain Neurological: Present: See HPI - Patient's Past Medical History Patient History - Medical: Anxiety, Depression, Headache, Migraines Patient History - Cardiac/Respiratory: No pertinent hx Patient History - Cancer: No Hx of Cancer Patient History - Surgical Procedures: Patient History - Other: None - Family History Mother Family History - Medical: Diabetes Type 2 Insulin Dependent, Other - Social History Living Situations: home Abuse History: No History of abuse Psych History: Hx of Anxiety, Hx of Depression, Hx of Psychiatric Tx, Current tx /ever been on anti-depressants or anti-anxiety meds Does anyone smoke in the home?: Yes Smoking Status: Current every day smoker Patient requests Smoking Cessation Consult: No Initiate information on Smoking Cessation: No Alcohol Use: occasionally Drug Use: marijuana - Immunizations Immunizations Up to Date: Yes Hx Pneumococcal Vaccination: No History of Influenza Vaccine: No Physical Exam - Physical Exam General Appearance: Present: alert, no apparent distress Eye Exam: Normal inspection: bilateral Ears, Nose, Throat: Present: normal ENT inspection Neck: Present: other - trachea midline Respiratory: Present: no respiratory distress Cardiovascular/Chest: Present: regular rate, rhythm, normal peripheral pulses, other - strong radial pulse Extremity Exam: Present: normal inspection, other - tenderness left deltoid and trap. Full ROM shoulder. No redness or warmth. Strong pulses. No elbow or forearm tendernes. No suggestion of septic arthritis or compartment syndrome. Palpation of the musculature completely reproduces her pain. Neurological Exam: Present: alert, other - Sensation to LT intact. Full hand strength. no clear focal motor or sensory deficits. Skin Exam: Absent: skin rash ED Progress - Vital Signs Patient's Vital Signs:: I have reviewed the patient's vital signs. Vital Signs: Vital Signs 09/19/16 16:25 Temperature 36 C L Pulse Rate 112 H Respiratory 20 Rate Blood Pressure 124/79 O2 Sat by Pulse 95 Oximetry - Progress/Reassessment Chief Complaint: Shoulder Injury/Pain Progress Note-Subjective: 09/19/16 17:56 No suggestion of septic arthritis. I offered her repeat x-rays, she understands risks and benefits but declines this. Wants something for the Sx. Will Rx Robaxin for muscle relaxant. no suggestion of infectious process or other life/limb threat. I discussed warning signs and reasons to return as well as the need for close f/ u. Departure Clinical Impression: Musculoskeletal pain - Departure Disposition: Home self-care Condition: Stable Instructions: Musculoskeletal Pain Additional Instructions: Rest. Medications as directed. No driving while taking. Keep your appointment Wednesday. Return if you change your mind about having additional x- rays, develop fever, numbness, tingling, weakness or if your condition worsens or changes in any way. Prescriptions: Methocarbamol [Robaxin] 500 mg PO TID PRN #12 tablet PRN Reason: Pain
[2016-09-19 18:10] VITALS: BP 134/86
== END 2016-09-19 18:03 | disposition home or self-care (01) ==
LOC: ER 16:19
DX: M79.1 Myalgia (principal); Z72.0 Tobacco use; W01.0XXD Fall on same level from slipping, tripping and stumbling without subsequent striking against object, subsequent encounter

== ENCOUNTER 2016-09-21 14:59 | Emergency (ER) | payer MEDICARE, OTHER ==
[2016-09-21 15:05] VITALS: BP 132/81
--- OUTSIDE RECORDS SUMMARY | 2016-09-21 15:26 | XMS REPORT | Continuity of Care Document ---
:1965 Author Organization [facility] ([facility]) Address [address] [address] Phone [phone] Care Team Providers Name Role Phone Fernando Pavon Primary Care Provider [phone] Source Comments This disclosure is being made pursuant to the Care Everywhere program, applicable federal and state laws, and may not contain all informaitonavailable regarding this patient.[facility] ([facility]) Active Allergies and Adverse Reactions [...]
--- OUTSIDE RECORDS SUMMARY | 2016-09-21 15:26 | XMS REPORT | Continuity of Care Document ---
:1965 Author Organization [facility] [place] [address] Care Team Providers Name Role Phone Phys, Not Primary Care Provider Unavailable Source Comments This disclosure is being made pursuant to the [employer] program and maynot contain all information available regarding this patient.[facility] Active Allergies and Adverse Reactions Allergen Noted Date Severity Reactions Comments Effexor 09/21/2016 High Seizures Paxil 03/22/2013 Low Rash Toradol 03/22/2013 Low Nausea Only Tramadol 03/22/2013 Low Rash Voltaren 03/22/2013 Other (See Comments) "I don't know, it's been so long since I took it." Current Medications Be aware that medications may not be up to date as of this document. Alwaysverify current medications with the patient. Prescription Sig. Disp. Refills Start Date End Date Status BREXpiprazole Take 4 mg by Active (REXULTI) 4 MG TABS mouth daily. tablet ALPRAZolam (XANAX) Take 1 mg by 01/14/2016 Active 1 MG tablet mouth 2 (two) times daily. gabapentin Take 300 mg by Discontinued (NEURONTIN) 300 MG mouth 3 (three) 7 capsule times daily. Indications: Aggressive Behavior citalopram (CELEXA) Take 1 tablet by 30 tablet 1 03/23/2013 Discontinued 20 MG tablet mouth daily. 7 Indications: Depression haloperidol Take 1 tablet by 60 tablet 1 03/23/2013 Discontinued (HALDOL) 5 MG mouth 2 (two) 7 tablet times daily. Active Problems Problem Noted Date Acute pain of left shoulder 09/21/2016 Schizophrenia, undifferentiated (HCC) 03/22/2013 Most Recent Encounters Date Type Specialty Providers Description 09/21/2016 Office Visit Orthopedic Surgery Lm Jimenez, Acute pain of left MD shoulder (Primary Dx) Social History Tobacco Use Types Packs/Day Years Used Date Current Every Day Smoker 0.25 Tobacco Cessation:Ready to Quit: Yes; Counseling Given: Yes Comments: Alcohol Use Drinks/Week oz/Week Comments No Last Filed Vital Signs Vital Sign Reading Time Taken Blood Pressure 111/78 09/21/2016 1:50 PM CDT Pulse 100 09/21/2016 1:50 PM CDT Temperature 36.6 C (97.9 F) 09/21/2016 1:50 PM CDT Respiratory Rate 18 09/21/2016 1:50 PM CDT Height 1.6 m (5' 3") 09/21/2016 1:50 PM CDT Weight 90.901 kg (200 lb 6.4 oz) 09/21/2016 1:50 PM CDT Body Mass Index 35.51 09/21/2016 1:50 PM CDT Oxygen Saturation 99% 09/21/2016 1:50 PM CDT Plan of Care Health Maintenance Due Date Last Done Comments Pneumococcal Medium Risk 19-64 yo (1 of 1 - PPSV23) 1986 Tetanus/Pertussis (1 - Tdap) 1986 Pap Smear 02/20/1988 Influenza Immunization (#1) 2015 Results from Last 3 Months Not on file
[2016-09-21] MEDS ORDERED: METOCLOPRAMIDE HCL 5 MG/ML VIAL IV ONE (15:28)
[2016-09-21] MEDS ORDERED: diphenhydrAMINE HCL 50 MG/ML VIAL IM ONE (15:28)
[2016-09-21] MEDS ORDERED: NORMAL SALINE 1,000 ML IV ONE (15:28)
--- NOTE | 2016-09-21 15:29 | ERNOTE ---
Headache ER HPI - Narrative Date of Service: 09/21/16 - General Presenting Symptoms: headache Time Seen by Provider: 09/21/16 15:19 Source: patient, RN notes reviewed Exam Limitations: no limitations - Immun/Allergies/Home Medications Immunizations: IMMUNIZATION HX Immunizations Up to Date Yes History of Influenza Vaccine No Hx Pneumococcal Vaccination No Allergies/Adverse Reactions: Allergies diclofenac sodium [From Voltaren] Allergy (Intermediate, Verified 09/21/16 15:05 ) seizure paroxetine HCl [From Paxil] Allergy (Mild, Verified 09/21/16 15:05) rash venlafaxine HCl [From Effexor] Allergy (Mild, Verified 09/21/16 15:05) rash ziprasidone HCl [From Geodon] Adverse Reaction (Severe, Verified 09/21/16 15:05) Itching ziprasidone mesylate [From Geodon] Adverse Reaction (Severe, Verified 09/21/16 15:05) Itching sumatriptan [From Imitrex] Adverse Reaction (Intermediate, Verified 09/21/16 15: 05) Nausea sumatriptan succinate [From Imitrex] Adverse Reaction (Intermediate, Verified 15:05) Nausea ketorolac tromethamine [From Toradol] Adverse Reaction (Mild, Verified 09/21/16 15:05) Vomiting tramadol Adverse Reaction (Mild, Verified 09/21/16 15:05) Vomiting Home Medications: HOME MEDICATIONS ALPRAZolam [Xanax] 1 mg PO QID #120 tab 03/23/15 [Last Taken 04/06/15] Albuterol Sulfate/Ipratropium [Duoneb 2.5-0.5MG/3ML Soln] 3 ml IH QID #120 vial 03/01/16 [Last Taken Unknown] Nebulizer [Compact Ultrasonic Nebulizer] 1 each MC QID #1 kit 03/01/16 [Last Taken Unknown] Albuterol Sulfate [Proair Hfa] 2 puff IH QID PRN #1 inhaler 08/16/16 [Last Taken Unknown] Ibuprofen [Motrin] 600 mg PO TID PRN #15 tab 09/14/16 [Last Taken Unknown] Methocarbamol [Robaxin] 500 mg PO TID PRN #12 tablet 09/19/16 [Last Taken Unknown] - Pain Pain Score: 10 - History of Present Illness Narrative: 51 y/o female ambulatory to the ED for a headache that began this morning. She believes it is because her mother is hospitalized and she is stressed about it. She has taken ibuprofen and excedrin migraine without improvement. She is seen here frequently for the same problem. Date (Duration): 09/21/16 Timing of Headache: gradual Context Headache: Present: new onset Quality: Present: achy Severity Maximum: Present: severe Severity-Currently: Present: severe Headache frequency: Present: frequent headaches, similar to previous headache Associated Symptoms: Reports: light-headedness. Denies: fever/chills, nausea, vomiting, sweating, nasal congestion, nasal drainage, facial pain, fatigue, weakness, numbness/tingling, vision changes, confusion, dizziness, seizures, neck pain/stiffness, speech problems Exacerbated by:: Denies: light, noise, movement Prior Treament: Reports: recently seen, similar symptoms before Review of Systems - Review of Systems Constitutional: Absent: recent illness, fever, chills EYE: Absent: eye pain, blurred vision, vision changes ENT: Present: See HPI Respiratory: Present: cough. Absent: shortness of breath Cardiology: Absent: chest pain, syncope Gastrointestinal/Abdominal: Present: See HPI Genitourinary: Present: no symptoms reported Musculoskeletal: Absent: muscle stiffness, neck pain Skin: Absent: rash, lesions Neurological: Present: headache, dizziness/light-headedness Endocrine: Present: no symptoms reported Hematologic/Lymphatic: Present: no symptoms reported Psych: Present: no symptoms reported - Patient's Past Medical History Patient History - Medical: Anxiety, Depression, Headache, Migraines Patient History - Cardiac/Respiratory: No pertinent hx Patient History - Cancer: No Hx of Cancer Patient History - Surgical Procedures: Patient History - Other: None - Family History Mother Family History - Medical: Diabetes Type 2 Insulin Dependent, Other - Social History Living Situations: home Abuse History: No History of abuse Psych History: Hx of Anxiety, Hx of Depression, Hx of Psychiatric Tx, Current tx /ever been on anti-depressants or anti-anxiety meds Does anyone smoke in the home?: Yes Smoking Status: Current every day smoker Alcohol Use: occasionally Drug Use: marijuana - Immunizations Immunizations Up to Date: Yes Hx Pneumococcal Vaccination: No History of Influenza Vaccine: No Physical Exam - Physical Exam General Appearance: Present: wd/wn, alert, no apparent distress Eye Exam: Normal inspection: bilateral, PERRL: bilateral, EOMI: bilateral, Other : bilateral - no photophobia Ears, Nose, Throat: Present: normal ENT inspection Neck: Present: normal inspection, nontender, supple, full range of motion Respiratory: Present: no respiratory distress, normal breath sounds, no accessory muscle use, lungs clear Cardiovascular/Chest: Present: regular rate, rhythm, no murmur Extremity Exam: Present: normal inspection, normal range of motion Neurological Exam: Present: alert, oriented, normal mood/affect, no motor/ sensory deficits Skin Exam: Present: normal color, warm/dry ED Progress - Vital Signs Patient's Vital Signs:: I have reviewed the patient's vital signs. Vital Signs: Vital Signs 09/21/16 15:00 Temperature 36.7 C Pulse Rate 102 H Respiratory 12 Rate Blood Pressure 132/81 O2 Sat by Pulse 96 Oximetry - Progress/Reassessment Chief Complaint: Headache Progress:: Improved Departure Clinical Impression: Migraine Qualifiers: Migraine type: unspecified Status migrainosus presence: without status migrainosus Intractability: not intractable Qualified Code(s): G43.909 - Migraine, unspecified, not intractable, without status migrainosus - Departure Disposition: Home Follow Up Needed Condition: Stable Instructions: Migraine Headache, [id number]
[2016-09-21] MEDS ORDERED: diphenhydrAMINE HCL 50 MG/ML VIAL IV ONE (15:36)
[2016-09-21] MEDS ORDERED: diphenhydrAMINE HCL 50 MG/ML VIAL ONE (15:41)
[2016-09-21] MEDS ORDERED: METOCLOPRAMIDE HCL 5 MG/ML VIAL ONE (15:42)
== END 2016-09-21 16:37 | disposition home or self-care (01) ==
LOC: ER 14:59
DX: G43.909 Migraine, unspecified, not intractable, without status migrainosus (principal); Z72.0 Tobacco use; F41.8 Other specified anxiety disorders

== ENCOUNTER 2016-10-16 14:03 | Emergency (ER) | payer MEDICARE, OTHER ==
[2016-10-16] MEDS ORDERED: NORMAL SALINE 1,000 ML IV ONE ×2 (14:10→15:16)
--- NOTE | 2016-10-16 14:16 | ERNOTE ---
Neuro HPI ER Record Presenting Symptoms: other Time Seen by Provider: 10/16/16 14:05 Source: EMS Exam Limitations: clinical condition Immunizations: IMMUNIZATION HX Immunizations Up to Date Yes History of Influenza Vaccine No Hx Pneumococcal Vaccination No Allergies/Adverse Reactions: Allergies Allergy/AdvReac Type Severity Reaction Status Date / Time diclofenac sodium Allergy Intermediate seizure Verified 10/16/16 14:55 [From Voltaren] paroxetine HCl [From Paxil] Allergy Mild rash Verified 10/16/16 14:55 venlafaxine HCl Allergy Mild rash Verified 10/16/16 14:55 [From Effexor] ziprasidone HCl [From Geodon] AdvReac Severe Itching Verified 10/16/16 14:55 ziprasidone mesylate AdvReac Severe Itching Verified 10/16/16 14:55 [From Geodon] sumatriptan [From Imitrex] AdvReac Intermediate Nausea Verified 10/16/16 14:55 sumatriptan succinate AdvReac Intermediate Nausea Verified 10/16/16 14:55 [From Imitrex] ketorolac tromethamine AdvReac Mild Vomiting Verified 10/16/16 14:55 [From Toradol] tramadol AdvReac Mild Vomiting Verified 10/16/16 14:55 Home Medications: HOME MEDICATIONS ALPRAZolam [Xanax] 1 mg PO QID #120 tab 03/23/15 [Last Taken 04/06/15] Albuterol Sulfate/Ipratropium [Duoneb 2.5-0.5MG/3ML Soln] 3 ml IH QID #120 vial 03/01/16 [Last Taken Unknown] Nebulizer [Compact Ultrasonic Nebulizer] 1 each MC QID #1 kit 03/01/16 [Last Taken Unknown] Albuterol Sulfate [Proair Hfa] 2 puff IH QID PRN #1 inhaler 08/16/16 [Last Taken Unknown] Ibuprofen [Motrin] 600 mg PO TID PRN #15 tab 09/14/16 [Last Taken Unknown] Methocarbamol [Robaxin] 500 mg PO TID PRN #12 tablet 09/19/16 [Last Taken Unknown] - History of Present Illness Narrative: Patient is here as she is not 'acting right'. EMS reports that the patient's mother stated that the patient complained this morning of not feeling well and then got increasingly less responsive. Patient is well known to staff for multiple visits, history of drug use and psychiatric history. Patient is unable to give story Review of Systems - Narrative Narrative: unable to obtain - Patient's Past Medical History Patient History - Medical: Anxiety, Depression, Headache, Migraines Patient History - Cardiac/Respiratory: No pertinent hx Patient History - Cancer: No Hx of Cancer Patient History - Surgical Procedures: Patient History - Other: None - Family History Mother Family History - Medical: Diabetes Type 2 Insulin Dependent, Other - Social History Living Situations: home Abuse History: No History of abuse Psych History: Hx of Anxiety, Hx of Depression, Hx of Psychiatric Tx, Current tx /ever been on anti-depressants or anti-anxiety meds Does anyone smoke in the home?: Yes Alcohol Use: occasionally Drug Use: marijuana - Immunizations Immunizations Up to Date: Yes Hx Pneumococcal Vaccination: No History of Influenza Vaccine: No Physical Exam - Physical Exam General Appearance: Present: wd/wn, no apparent distress, lethargic - follws some commands, mumbles when talked to Eye Exam: Normal inspection: bilateral Ears, Nose, Throat: Present: dry mucous membranes - reddish liquid/ Neck: Present: normal inspection, supple Respiratory: Present: no respiratory distress, normal breath sounds, lungs clear Cardiovascular/Chest: Present: regular rate, rhythm, no murmur Gastrointestinal/Abdominal: Present: nontender Skin Exam: Present: normal color, warm/dry ED Progress - Results and Orders Patient's Lab Results:: I have reviewed the patient's lab results. - Vital Signs Patient's Vital Signs:: I have reviewed the patient's vital signs. - EKG EKG: NSR - sinustachycardia, unchanged from - 07/2014, other - poor R progression , no acute changes EKG read: Interp. by me - CT/Ultrasound CT/Ultrasound Narrative: CT head: no acute findings - Progress/Reassessment Progress Note-Subjective: 10/16/16 14:46 discussed with patient's mother, patient was home all night and all day today, has been sleeping on and off, eating jelly beans when awake 10/16/16 14:53 patient able to pull up her pants after cath UA 10/16/16 16:50 patient more alert, cooperative, speech slurred,denies pain, denies taking any extra medications, discussed results with family, family is concerned about possible overmedication 10/16/16 17:57 patient resting, HR 99bpm, 10/16/16 19:45 patient sleeping but arousable - Transfer of Care Physician Sign Out: Ct Henriquez Receiving Physician: Shaila Mckinney Expected Disposition: Discharge Departure Clinical Impression: Lethargy - Departure Condition: Fair
[2016-10-16 14:26] LABS: Hematocrit 34.4 % (37.0-47.0); Hemoglobin 11.3 gm/dL (12.5-16.0); Mean Cell Volume 94.8 fl (78-100); Mean Corpuscular Hemoglobin 31.1 pg (27-31); Mean Corpuscular Hgb Conc 32.8 g/dl (32-36); Mean Platelet Volume 9.2 fl (6.0-9.5); Neutrophil # 4.1 K/mm3 (1.3-6.0); Neutrophil % 53.2 % (42-75.0); Platelet Count 280 K/mm3 (150-450); Red Blood Count 3.63 M/mm3 (4.2-5.4); Red Cell Distribution Width 12.5 % (11.5-14.0); White Blood Count 7.6 K/mm3 (4.0-10.5)
--- OUTSIDE RECORDS SUMMARY | 2016-10-16 14:38 | XMS REPORT | Continuity of Care Document ---
:1965 Author Organization [facility] [place] [address] Care Team Providers Name Role Phone Phys, Not Primary Care Provider Unavailable Source Comments This disclosure is being made pursuant to the [employer] program and maynot contain all information available regarding this patient.[facility] Active Allergies and Adverse Reactions Allergen Noted [...] Recent Encounters Date Type Specialty Providers Description 10/01/2016 Orders Only Provider, Not In System 09/21/2016 Office Visit Orthopedic Surgery Lm Jimenez, [...] (#1) 2015 Results from Last 3 Months XR SHOULDER MIN 2 VIEWS (09/09/2016) Insurance Payer Benefit Plan / Subscriber ID Type Phone Address Group MEDICARE MEDICARE A AND B [id number] [id number] [address] [place] [address] [facility] [id number] Managed [phone] [address] [place], [place] [id number] KATE ALLAN Personal/Family Self 1965 Home[address] [phone] [place] [id number]
[2016-10-16 14:44] LABS: ALT 22 U/L (19-67); AST 12 U/L (0-48); Acetaminophen * 0.2 mcg/mL (10.0-30.0); Albumin * 2.9 gm/dl (3.4-5.0); Alkaline Phosphatase * 53 U/L (50-170); Anion Gap 14.7 mmol/L (6.8-13.8); BUN/Creatinine Ratio 7.4 (9.0-21.6); Bilirubin, Total 0.1 mg/dL (0.0-1.1); Blood Urea Nitrogen 6 mg/dL (3-23); Ca. Corrected For Albumin 9.1 mg/dL (8.4-10.2); Calcium * 8.5 mg/dL (7.9-10.9); Carbon Dioxide 23.4 mmol/L (24-32.6); Chloride 111 mmol/L (97-106); Glucose * 124 mg/dL (70-110); Potassium 3.1 mmol/L (3.4-4.6); Salicylate Less than 2.8 mg/dL (2.8-20.0); Sodium 146 mmol/L (132-142); Total Protein 6.3 gm/dL (6.2-8.2)
[2016-10-16 15:04] LABS: Urine Bilirubin Negative (NEGATIVE); Urine Blood Negative /ul (NEGATIVE); Urine Ketone Negative (NEGATIVE); Urine Nitrite Negative (NEGATIVE); Urine Protein Negative (NEGATIVE); Urine Specific Gravity >=1.030 SP.GR. (1.005-1.010); Urine Urobilinogen Normal (NORMAL)
[2016-10-16 15:19] LABS: Urine Appearance Clear; Urine Bacteria TRACE; Urine Color Yellow; Urine RBC None Seen /hpf (0-5); Urine WBC 0-5 /hpf (0-5)
[2016-10-16 15:21] LABS: Cocaine Ur Negative (NEGATIVE); Urine Barbiturate Negative (NEGATIVE); Urine Opiates Negative (NEGATIVE); Urine PCP Negative (NEGATIVE)
[2016-10-16 15:22] LABS: Urine Benzodiazepines Positive (NEGATIVE); Urine THC Positive (NEGATIVE)
[2016-10-16 20:30] VITALS: BP 159/98
== END 2016-10-16 20:51 | disposition home or self-care (01) ==
LOC: ER 14:03
PROC: 0T9B7ZZ Drainage of Bladder, Via Natural or Artificial Opening (ICD-10-PCS; principal; 2016-10-16)
DX: R53.83 Other fatigue (principal)
CPT/HCPCS: 36415; 51701; 70450; 80053; 80307; 81001; 83605; 85025; 87086; 93005; 99284; G0480; G0481

== ENCOUNTER 2016-11-07 11:21 | Emergency (ER) | payer MEDICARE, OTHER ==
[2016-11-07 11:44] LABS: Hematocrit 35.8 % (37.0-47.0); Hemoglobin 11.9 gm/dL (12.5-16.0); Mean Corpuscular Hemoglobin 31.6 pg (27-31); Mean Corpuscular Hgb Conc 33.2 g/dl (32-36); Mean Platelet Volume 9.3 fl (6.0-9.5); Neutrophil # 3.9 K/mm3 (1.3-6.0); Neutrophil % 59.4 % (42-75.0); Platelet Count 244 K/mm3 (150-450); Red Blood Count 3.77 M/mm3 (4.2-5.4); Red Cell Distribution Width 12.7 % (11.5-14.0); White Blood Count 6.5 K/mm3 (4.0-10.5)
--- NOTE | 2016-11-07 11:52 | ERNOTE ---
Neuro HPI ER Record Presenting Symptoms: other - decreased responsiveness Time Seen by Provider: 11/07/16 11:41 Source: family, EMS Immunizations: IMMUNIZATION HX Immunizations Up to Date Yes History of Influenza Vaccine No Hx Pneumococcal Vaccination No Allergies/Adverse Reactions: Allergies Allergy/AdvReac Type Severity Reaction Status Date / Time diclofenac sodium Allergy Intermediate seizure Verified 11/07/16 14:23 [From Voltaren] paroxetine HCl [From Paxil] Allergy Mild rash Verified 11/07/16 14:23 venlafaxine HCl Allergy Mild rash Verified 11/07/16 14:23 [From Effexor] ziprasidone HCl [From Geodon] AdvReac Severe Itching Verified 11/07/16 14:23 ziprasidone mesylate AdvReac Severe Itching Verified 11/07/16 14:23 [From Geodon] sumatriptan [From Imitrex] AdvReac Intermediate Nausea Verified 11/07/16 14:23 sumatriptan succinate AdvReac Intermediate Nausea Verified 11/07/16 14:23 [From Imitrex] ketorolac tromethamine AdvReac Mild Vomiting Verified 11/07/16 14:23 [From Toradol] tramadol AdvReac Mild Vomiting Verified 11/07/16 14:23 Home Medications: HOME MEDICATIONS ALPRAZolam [Xanax] 1 mg PO QID #120 tab 03/23/15 [Last Taken 04/06/15] Albuterol Sulfate/Ipratropium [Duoneb 2.5-0.5MG/3ML Soln] 3 ml IH QID #120 vial 03/01/16 [Last Taken Unknown] Nebulizer [Compact Ultrasonic Nebulizer] 1 each MC QID #1 kit 03/01/16 [Last Taken Unknown] Albuterol Sulfate [Proair Hfa] 2 puff IH QID PRN #1 inhaler 08/16/16 [Last Taken Unknown] Ibuprofen [Motrin] 600 mg PO TID PRN #15 tab 09/14/16 [Last Taken Unknown] Methocarbamol [Robaxin] 500 mg PO TID PRN #12 tablet 09/19/16 [Last Taken Unknown] - History of Present Illness Narrative: Patients mother reports that patient took two xanax and two sleeping pill this morning and after that has been more sleepy and slid out of bed. Patient has an extensive history of psychiatric illness and drug use with frequent visit to the ER.She was seen here about three weeks ago for the same symptoms. Patient unable to give story at this point Onset: cannot confirm onset Review of Systems - Narrative Narrative: unable to obtain - Patient's Past Medical History Patient History - Medical: Anxiety, Depression, Headache, Migraines Patient History - Cardiac/Respiratory: No pertinent hx Patient History - Cancer: No Hx of Cancer Patient History - Surgical Procedures: Patient History - Other: None - Family History Mother Family History - Medical: Diabetes Type 2 Insulin Dependent, Other - Social History Living Situations: home Abuse History: No History of abuse Psych History: Hx of Anxiety, Hx of Depression, Hx of Psychiatric Tx, Current tx /ever been on anti-depressants or anti-anxiety meds Does anyone smoke in the home?: Yes Smoking Status: Current every day smoker Alcohol Use: occasionally Drug Use: benzodiazepine, marijuana - Immunizations Immunizations Up to Date: Yes Hx Pneumococcal Vaccination: No History of Influenza Vaccine: No Physical Exam - Physical Exam General Appearance: Present: wd/wn, no apparent distress, lethargic, obese Head Exam: Present: normal inspection, no evidence of injury Eye Exam: Normal inspection: bilateral, PERRL: bilateral Ears, Nose, Throat: Present: normal ENT inspection, normal pharynx Neck: Present: normal inspection, nontender Respiratory: Present: no respiratory distress, normal breath sounds, no accessory muscle use, lungs clear Cardiovascular/Chest: Present: regular rate, rhythm, no murmur Gastrointestinal/Abdominal: Present: nontender, nondistended, soft Extremity Exam: Present: normal inspection - no signs of injury Neurological Exam: Present: other - lethargic, mumbles Skin Exam: Present: normal color, warm/dry Wilfredo Coma Scale - Assess Eye Opening: To Voice Motor: Obeys Commands Verbal: Inappropriate - mumbles, difficult to understand - Total Coma Scale Total: 12 ED Progress - Results and Orders Patient's Lab Results:: I have reviewed the patient's lab results. - Vital Signs Patient's Vital Signs:: I have reviewed the patient's vital signs. Vital Signs: Vital Signs 11/07/16 11/07/16 11/07/16 11:26 11:36 11:39 Temperature 37.1 C 37.1 C Pulse Rate 103 H 99 Respiratory 19 20 Rate Blood Pressure 108/64 108/64 127/80 O2 Sat by Pulse 96 97 Oximetry - EKG EKG: NSR, unchanged from - 10/16/16, other - intraventricular conduction delay EKG read: Interp. by me - Progress/Reassessment Chief Complaint: Altered Mental Status Progress Note-Subjective: 11/07/16 12:34 sleeping easily arousable 11/07/16 14:21 patient alert, states now that she took seroquel off the street to help her sleep patient seems to be back to her baseline, denies any suicidal ideation, ready to go home Departure Clinical Impression: Overdose Qualifiers: Encounter type: initial encounter Injury intent: undetermined intent Qualified Code(s): T50.904A - Poisoning by unspecified drugs, medicaments and biological substances, undetermined, initial encounter - Departure Disposition: Home self-care Condition: Fair Instructions: Drug Overdose Additional Instructions: call your doctor for follow up do NOT take any drugs that are not prescribed for you
--- OUTSIDE RECORDS SUMMARY | 2016-11-07 11:52 | XMS REPORT | Encounter Summary ---
:1965 Author Organization [employer] [place] [address] Care Team Providers Name Role Phone Unavailable Primary Care Provider Unavailable Reason for Visit Reason Comments Shoulder Pain LEFT Encounter Details Date Type Department Care Team Description 09/21/2016 Office Visit [facility] Barbara, Acute pain of left [facility] MD Lm shoulder (Primary Dx) [address] [facility], [address] [place] [address] [address] [place] [address] [place], [place] [phone] Social History Tobacco Use Types Packs/Day Years Used Date Current Every Day Smoker 0.25 Tobacco Cessation:Ready to Quit: Yes; Counseling Given: Yes Alcohol Use Drinks/Week oz/Week Comments No Sex Assigned at Date Recorded Not on file as of this encounter Last Filed Vital Signs Vital Sign Reading Time Taken Blood Pressure 111/78 09/21/2016 1:50 PM CDT Pulse 100 09/21/2016 1:50 PM CDT Temperature 36.6 C (97.9 F) 09/21/2016 1:50 PM CDT Respiratory Rate 18 09/21/2016 1:50 PM CDT Oxygen Saturation 99% 09/21/2016 1:50 PM CDT Inhaled Oxygen Concentration - - Weight 90.9 kg (200 lb 6.4 oz) 09/21/2016 1:50 PM CDT Height 160 cm (5' 3") 09/21/2016 1:50 PM CDT Body Mass Index 35.5 09/21/2016 1:50 PM CDT in this encounter Progress Notes Lm Jimenez MD - 09/21/2016 1:32 PM CDTFormatting of this note may be different from the original. Subjective: Patient ID: Margo Allan is a 51 y.o. female. Chief Complaint: HPI Patient is referred to Dr. Jimenez from [facility] ER Dept. For LEFT shoulder pain and injury. She tripped over a dog leash about 1 week and fell on to her LEFT hand and injured her LEFT arm allthe way up to the shoulder and posterior shoulder.Patient is rating pain in shoulder a 10 on pain scale 0-10. She was referred by a doctor in [facility] ER to Dr. Jimenez for shoulder injury. Shoulder Pain Patient complaints of left shoulder pain. This is evaluated as a personal injury. The pain is described as aching, burning and stabbing. The onset of the pain was sudden, related to a fall from standing. Mechanism of injury: fall. The pain occurs continuously and lasts 30 minutes. Location is posterior , scapular. No history of dislocation. Symptoms are aggravated by all activities. Symptoms arediminished by rest, ice, avoiding the painful activities, sling . Limited activities include: reaching, lifting. mild stiffness, moderate weakness is reported. Patient is a patient is disbled andshe has not missed does not work. Social History Occupational History Not on file. Social History Main Topics Smoking status: Current Every Day Smoker -- 0.25 packs/day Smokeless tobacco: Not on file Alcohol Use: No Drug Use: No Sexual Activity: Not on file Review of Systems Constitutional: Negative. HENT: Negative. Eyes: Negative. Respiratory: Negative. Cardiovascular: Negative. Gastrointestinal: Negative. Endocrine: Negative. Genitourinary: Negative. Musculoskeletal: Positive for arthralgias (LEFT shoulder pain). Skin: Negative. Allergic/Immunologic: Negative. Neurological: Negative. Hematological: Negative. Psychiatric/Behavioral: Negative. Objective: Left Shoulder Exam Tenderness The patient is experiencing tenderness in the GLOBAL. Range of Motion Active Abduction: N/t Passive Abduction: N/t Extension: N/t Forward Flexion: 90 External Rotation: 40 Internal Rotation 0 degrees: N/t Internal Rotation 90 degrees: 70 Muscle Strength Abduction: N/t Internal Rotation: N/t External Rotation: n/t Supraspinatus: N/t Subscapularis: N/t Biceps: N/t Tests Impingement: Negative Olsen: N/t Cross Arm: N/t Drop Arm: Negative Apprehension: n/t Sulcus: Negative XRAYS; L SHOULDER ON DISC; NORMAL Assessment: 1. Acute pain of left shoulder Plan: in this encounter Plan of Treatment Not on fileas of this encounter Visit Diagnoses Diagnosis Acute pain of left shoulder - Primary in this encounter
--- OUTSIDE RECORDS SUMMARY | 2016-11-07 11:52 | XMS REPORT | Encounter Summary ---
:1965 Author Organization [facility] [place] [address] Care Team Providers Name Role Phone Unavailable Primary Care Provider Unavailable Encounter Details Date Type Department Care Team Description 10/01/2016 Orders Only [facility] Provider, Not In Centralized Scanning System Social History Tobacco Use Types Packs/Day Years Used Date Current Every Day Smoker 0.25 Alcohol Use Drinks/Week oz/Week Comments No Sex Assigned at Date Recorded Not on file as of this encounter Plan of Treatment Not on fileas of this encounter Results XR SHOULDER MIN 2 VIEWS (09/09/2016)in this encounter Visit Diagnoses Not on filein this encounter
--- OUTSIDE RECORDS SUMMARY | 2016-11-07 11:52 | XMS REPORT | Clinical Summary ---
:1965 Author Organization [employer] [place] [address] Care Team Providers Name Role Phone Unavailable Primary Care Provider Unavailable Source Comments This disclosure is being made pursuant to the [facility] program and maynot contain all information available regarding this patient.[employer] Allergies Active Allergy Reactions Severity Noted Date Comments Venlafaxine Seizures High 09/21/2016 Paroxetine Hcl Rash Low 03/22/2013 Ketorolac Tromethamine Nausea Only Low 03/22/2013 Tramadol Rash Low 03/22/2013 Diclofenac Sodium Other (See Comments) 03/22/2013 "I don't know, it's been so long since I took it." Current Medications Be aware that medications may not be up to date as of this document. Alwaysverify current medications with the patient. Prescription Sig. Disp. Refills Start Date End Date Status BREXpiprazole (REXULTI) 4 Take 4 mg by mouth Active MG TABS tablet daily. ALPRAZolam (XANAX) 1 MG Take 1 mg by mouth 01/14/2016 Active tablet 2 (two) times daily. Active Problems Problem Noted Date Acute pain of left shoulder 09/21/2016 Schizophrenia, undifferentiated (HCC) 03/22/2013 Encounters Date Type Specialty Care Team Description 10/01/2016 Orders Only Provider, Not In System 09/21/2016 Office Visit Orthopedic Surgery Barbara, Acute pain of left MD Lm shoulder (Primary Dx) from Last 3 Months Social History Tobacco Use Types Packs/Day Years Used Date Current Every Day Smoker 0.25 Tobacco Cessation:Ready to Quit: Yes; Counseling Given: Yes Alcohol Use Drinks/Week oz/Week Comments No Sex Assigned at Date Recorded Not on file Last Filed Vital Signs Vital Sign Reading [...] Mass Index 35.5 09/21/2016 1:50 PM CDT Plan of Treatment Health Maintenance Due Date Last Done Comments Pneumococcal Medium Risk 19-64 yo (1 of 1 - PPSV23) 1986 Tetanus/Pertussis (1 - Tdap) 1986 Pap Smear 02/20/1988 INFLUENZA IMMUNIZATION (#1) 2015 Results XR SHOULDER MIN 2 VIEWS (09/09/2016)from Last 3 Months Insurance Payer Benefit Plan / Subscriber ID Type Phone Address Group MEDICARE MEDICARE A AND B [id number] [phone] [address] [place] [phone] [facility] [id number] Managed [phone] [address] MEDICAID [facility] [address] [place], [place] [id number] Home: [address] [phone] [address] KATE ALLAN Personal/Family Self 1965 Home: [address] [phone] [address]
[2016-11-07 11:57] LABS: ALT 14 U/L (19-67); AST 9 U/L (0-48); Acetaminophen * 1.3 mcg/mL (10.0-30.0); Albumin * 3.2 gm/dl (3.4-5.0); Alkaline Phosphatase * 57 U/L (50-170); Anion Gap 12.5 mmol/L (6.8-13.8); BUN/Creatinine Ratio 15.1 (9.0-21.6); Bilirubin, Total 0.1 mg/dL (0.0-1.1); Blood Urea Nitrogen 14 mg/dL (3-23); Ca. Corrected For Albumin 8.6 mg/dL (8.4-10.2); Calcium * 8.3 mg/dL (7.9-10.9); Carbon Dioxide 24.5 mmol/L (24-32.6); Chloride 109 mmol/L (97-106); Glucose * 112 mg/dL (70-110); Salicylate Less than 2.8 mg/dL (2.8-20.0); Sodium 142 mmol/L (132-142); Total Protein 6.4 gm/dL (6.2-8.2)
[2016-11-07 11:59] LABS: Urine Color Yellow
[2016-11-07 12:00] LABS: Urine Appearance Clear; Urine Bacteria None Seen; Urine Bilirubin Negative (NEGATIVE); Urine Blood 10 /ul (NEGATIVE); Urine Ketone Negative (NEGATIVE); Urine Nitrite Negative (NEGATIVE); Urine Protein Negative (NEGATIVE); Urine RBC None Seen /hpf (0-5); Urine Specific Gravity 1.015 SP.GR. (1.005-1.010); Urine Urobilinogen Normal (NORMAL); Urine WBC None Seen /hpf (0-5)
[2016-11-07 12:09] LABS: Cocaine Ur Negative (NEGATIVE); Urine Barbiturate Negative (NEGATIVE); Urine Opiates Negative (NEGATIVE); Urine PCP Negative (NEGATIVE)
[2016-11-07 12:10] LABS: Urine Benzodiazepines Positive (NEGATIVE); Urine THC Positive (NEGATIVE)
[2016-11-07] MEDS ORDERED: NORMAL SALINE 1,000 ML IV ONE (13:01)
[2016-11-07 14:41] VITALS: BP 131/76
== END 2016-11-07 14:46 | disposition home or self-care (01) ==
LOC: ER 11:21
DX: T43.594A Poisoning by other antipsychotics and neuroleptics, undetermined, initial encounter (principal); Y92.003 Bedroom of unspecified non-institutional (private) residence as the place of occurrence of the external cause; F17.200 Nicotine dependence, unspecified, uncomplicated
CPT/HCPCS: 36415; 80053; 80307; 81001; 85025; 93005; 94762; 99284; G0480; G0481

== ENCOUNTER 2016-11-20 09:39 | Emergency (ER) | payer MEDICARE, OTHER ==
[2016-11-20] MEDS ORDERED: NALBUPHINE HCL 20 MG/ML AMPUL IM ONE (09:58)
[2016-11-20] MEDS ORDERED: PROMETHAZINE HCL 25 MG/ML AMPUL IM ONE (09:58)
--- OUTSIDE RECORDS SUMMARY | 2016-11-20 09:59 | XMS REPORT | Clinical Summary ---
:1965 Author Organization [employer] [place] [address] Care Team Providers Name Role Phone Unavailable Primary Care Provider Unavailable Source Comments This disclosure is being made pursuant to the [employer] program and maynot contain all information available regarding this patient.[email or web address] Allergies Active Allergy Reactions Severity Noted Date [...] 1986 Pap Smear 02/20/1988 INFLUENZA IMMUNIZATION (#1) 2016 Results XR SHOULDER MIN 2 VIEWS (09/09/2016)from Last 3 Months Insurance Payer Benefit Plan / Subscriber ID Type Phone Address Group MEDICARE MEDICARE A AND B [id number] [phone] [address] [place] [phone] [facility] [id number] Managed [phone] [address] MEDICAID [facility] [address] [place], [place] [id number] Home: [address] [phone] [address] KATE ALLAN Personal/Family Self 1965 Home: [address] [phone] [address]
--- OUTSIDE RECORDS SUMMARY | 2016-11-20 10:00 | XMS REPORT | Encounter Summary ---
:1965 Author Organization [employer] [place] [address] Care Team Providers Name Role Phone Unavailable Primary Care Provider Unavailable Reason for Visit Reason Comments Shoulder Pain LEFT Encounter Details Date Type Department Care Team Description 09/21/2016 Office Visit [facility] Barbara, Acute pain of left [facility] MD Lm shoulder (Primary Dx) [address] [facility], [address] [place] [address] [address] [place] [address] [place], [place] [phone] Social History Tobacco Use Types Packs/Day [...] Patient is referred to Dr. Jimenez from [facility] ER Dept. For LEFT shoulder pain and injury. She tripped over a dog leash about 1 week and fell on to her LEFT hand and injured her LEFT arm allthe way up to the shoulder and posterior shoulder.Patient is rating pain in shoulder a 10 on pain scale 0-10. She was referred by a doctor in [facility] ER to Dr. Jimenez for shoulder injury. [...]
--- OUTSIDE RECORDS SUMMARY | 2016-11-20 10:00 | XMS REPORT | Encounter Summary ---
:1965 Author Organization [employer] [place] [address] Care Team Providers Name Role Phone Unavailable Primary Care Provider Unavailable Encounter Details Date Type Department Care Team Description 10/01/2016 Orders Only [facility] Provider, Not In Centralized Scanning [...]
--- NOTE | 2016-11-20 10:02 | ERNOTE ---
Headache ER HPI - Narrative Date of Service: 11/20/16 - General Presenting Symptoms: "migraine" Time Seen by Provider: 11/20/16 09:53 Source: patient Exam Limitations: no limitations - Immun/Allergies/Home Medications Immunizations: IMMUNIZATION HX Immunizations Up to Date Yes History of Influenza Vaccine No Hx Pneumococcal Vaccination No Allergies/Adverse Reactions: Allergies diclofenac sodium [From Voltaren] Allergy (Intermediate, Verified 11/20/16 09:49 ) seizure paroxetine HCl [From Paxil] Allergy (Mild, Verified 11/20/16 09:49) rash venlafaxine HCl [From Effexor] Allergy (Mild, Verified 11/20/16 09:49) rash ziprasidone HCl [From Geodon] Adverse Reaction (Severe, Verified 11/20/16 09:49) Itching ziprasidone mesylate [From Geodon] Adverse Reaction (Severe, Verified 11/20/16 09:49) Itching sumatriptan [From Imitrex] Adverse Reaction (Intermediate, Verified 11/20/16 09: 49) Nausea sumatriptan succinate [From Imitrex] Adverse Reaction (Intermediate, Verified 09:49) Nausea ketorolac tromethamine [From Toradol] Adverse Reaction (Mild, Verified 11/20/16 09:49) Vomiting tramadol Adverse Reaction (Mild, Verified 11/20/16 09:49) Vomiting Home Medications: HOME MEDICATIONS ALPRAZolam [Xanax] 1 mg PO QID #120 tab 03/23/15 [Last Taken 04/06/15] Albuterol Sulfate/Ipratropium [Duoneb 2.5-0.5MG/3ML Soln] 3 ml IH QID #120 vial 03/01/16 [Last Taken Unknown] Nebulizer [Compact Ultrasonic Nebulizer] 1 each MC QID #1 kit 03/01/16 [Last Taken Unknown] Albuterol Sulfate [Proair Hfa] 2 puff IH QID PRN #1 inhaler 08/16/16 [Last Taken Unknown] Ibuprofen [Motrin] 600 mg PO TID PRN #15 tab 09/14/16 [Last Taken Unknown] Methocarbamol [Robaxin] 500 mg PO TID PRN #12 tablet 09/19/16 [Last Taken Unknown] - History of Present Illness Narrative: patient states that she has had a migraine since wednesday. she has taken OTC medications an hydrocodone for this migraine and has not gotten relief. Timing of Headache: gradual Context Headache: Present: new onset Quality: Present: achy Severity Maximum: Present: mild Severity-Currently: Present: mild Headache frequency: Present: occasional headaches, similar to previous headache Modifying Factors - (Improves): Denies: rest, movement, medication Modifying Factors - (Worsens): Reports: movement, exposure to light Associated Symptoms: Reports: nausea. Denies: fever/chills, vomiting, nasal drainage, vision changes, confusion, dizziness, loss of consciousness, speech problems Exacerbated by:: Reports: light, noise, movement Prior Treament: Reports: similar symptoms before Review of Systems - Review of Systems Constitutional: Present: See HPI EYE: Present: no symptoms reported ENT: Present: no symptoms reported Respiratory: Present: no symptoms reported Cardiology: Present: no symptoms reported Gastrointestinal/Abdominal: Present: See HPI, nausea Genitourinary: Present: no symptoms reported Musculoskeletal: Present: no symptoms reported Skin: Present: no symptoms reported Neurological: Present: See HPI, headache, dizziness/light-headedness Endocrine: Present: no symptoms reported Hematologic/Lymphatic: Present: no symptoms reported Psych: Present: no symptoms reported All Other Systems: All systems neg except as marked - Patient's Past Medical History Patient History - Medical: Anxiety, Depression, Headache, Migraines Patient History - Cardiac/Respiratory: No pertinent hx Patient History - Cancer: No Hx of Cancer Patient History - Surgical Procedures: Patient History - Other: None - Family History Mother Family History - Medical: Diabetes Type 2 Insulin Dependent, Other - Social History Living Situations: home Abuse History: No History of abuse Psych History: Hx of Anxiety, Hx of Depression, Hx of Psychiatric Tx, Current tx /ever been on anti-depressants or anti-anxiety meds Does anyone smoke in the home?: Yes Smoking Status: Current every day smoker Have you smoked in the past 12 months: Yes Alcohol Use: occasionally Drug Use: benzodiazepine, marijuana - Immunizations Immunizations Up to Date: Yes Hx Pneumococcal Vaccination: No History of Influenza Vaccine: No Physical Exam - Physical Exam General Appearance: Present: wd/wn, alert, no apparent distress Head Exam: Present: normal inspection, no evidence of injury, no tenderness w palpation. Absent: swelling, tenderness Eye Exam: Normal inspection: bilateral, PERRL: bilateral, EOMI: bilateral Ears, Nose, Throat: Present: normal ENT inspection, normal pharynx Neck: Present: normal inspection, nontender, supple, full range of motion Respiratory: Present: no respiratory distress, normal breath sounds, no accessory muscle use, chest nontender, lungs clear Cardiovascular/Chest: Present: regular rate, rhythm, no murmur, normal peripheral pulses Gastrointestinal/Abdominal: Present: normal bowel sounds, nontender, nondistended, soft Back Exam: Present: normal inspection, normal range of motion, no CVA tenderness , no vertebral tenderness Extremity Exam: Present: normal inspection, non-tender, normal range of motion, no edema Neurological Exam: Present: alert, oriented, normal mood/affect, no motor/ sensory deficits, normal cerebellar test. Absent: facial droop, motor weakness Skin Exam: Present: normal color, warm/dry Lymphatic Exam: Present: no adenopathy ED Progress - Vital Signs Patient's Vital Signs:: I have reviewed the patient's vital signs. Vital Signs: Vital Signs 11/20/16 09:44 Temperature 36.2 C L Pulse Rate 101 H Respiratory 18 Rate Blood Pressure 137/92 O2 Sat by Pulse 97 Oximetry - Progress/Reassessment Chief Complaint: Headache Progress:: Improved Plan - Plan Plan: patient is to keep her apt with her PCP in a few weeks Departure Clinical Impression: Migraine headache Qualifiers: Migraine type: unspecified Status migrainosus presence: without status migrainosus Intractability: not intractable Qualified Code(s): G43.909 - Migraine, unspecified, not intractable, without status migrainosus - Departure Disposition: Home self-care Condition: Stable Instructions: Recurrent Migraine Headache, [id number] Additional Instructions: continue any previous home medications. return if symptoms return. Follow up with PCP.
[2016-11-20] MEDS ORDERED: NALBUPHINE HCL 20 MG/ML AMPUL ONE (10:08)
[2016-11-20] MEDS ORDERED: PROMETHAZINE HCL 25 MG/ML AMPUL ONE (10:09)
[2016-11-20 16:36] VITALS: BP 137/92
== END 2016-11-20 10:23 | disposition home or self-care (01) ==
LOC: ER 09:39
DX: G43.909 Migraine, unspecified, not intractable, without status migrainosus (principal); F17.200 Nicotine dependence, unspecified, uncomplicated

== ENCOUNTER 2016-11-26 12:36 | Emergency (ER) | payer MEDICARE, OTHER ==
[2016-11-26] MEDS ORDERED: diphenhydrAMINE HCL 50 MG/ML VIAL IM ONE (13:21)
[2016-11-26] MEDS ORDERED: METOCLOPRAMIDE HCL 5 MG/ML VIAL IM ONE (13:22)
[2016-11-26] MEDS ORDERED: NALBUPHINE HCL 20 MG/ML AMPUL IM ONE (13:22)
--- NOTE | 2016-11-26 13:35 | ERNOTE ---
Headache ER HPI - Narrative Date of Service: 11/26/16 - General Presenting Symptoms: "migraine" Time Seen by Provider: 11/26/16 13:15 Source: patient Exam Limitations: no limitations - Immun/Allergies/Home Medications Immunizations: IMMUNIZATION HX Immunizations Up to Date Yes History of Influenza Vaccine No Hx Pneumococcal Vaccination No Allergies/Adverse Reactions: Allergies diclofenac sodium [From Voltaren] Allergy (Intermediate, Verified 11/20/16 09:49 ) seizure paroxetine HCl [From Paxil] Allergy (Mild, Verified 11/20/16 09:49) rash venlafaxine HCl [From Effexor] Allergy (Mild, Verified 11/20/16 09:49) rash ziprasidone HCl [From Geodon] Adverse Reaction (Severe, Verified 11/20/16 09:49) Itching ziprasidone mesylate [From Geodon] Adverse Reaction (Severe, Verified 11/20/16 09:49) Itching sumatriptan [From Imitrex] Adverse Reaction (Intermediate, Verified 11/20/16 09: 49) Nausea sumatriptan succinate [From Imitrex] Adverse Reaction (Intermediate, Verified 09:49) Nausea ketorolac tromethamine [From Toradol] Adverse Reaction (Mild, Verified 11/20/16 09:49) Vomiting tramadol Adverse Reaction (Mild, Verified 11/20/16 09:49) Vomiting Home Medications: HOME MEDICATIONS ALPRAZolam [Xanax] 1 mg PO QID #120 tab 03/23/15 [Last Taken 04/06/15] Nebulizer [Compact Ultrasonic Nebulizer] 1 each MC QID #1 kit 03/01/16 [Last Taken Unknown] Albuterol Sulfate [Proair Hfa] 2 puff IH QID PRN #1 inhaler 08/16/16 [Last Taken Unknown] Ibuprofen [Motrin] 600 mg PO TID PRN #15 tab 09/14/16 [Last Taken Unknown] Albuterol Sulfate/Ipratropium [Duoneb 2.5-0.5MG/3ML Soln] 3 ml IH BID 11/26/16 [ Last Taken Unknown] - History of Present Illness Narrative: Pt. comes in with c/o migraine for two weeks. Pt. states that it is accompanied by nausea and dizziness but pt. denies any SOB, CP, diarrhea, fever , vision changes numbness or tingling. Pt. denies that it is the worst headache ever or that it is different than previous headaches. Review of Systems - Review of Systems Constitutional: Present: no symptoms reported. Absent: recent illness, fever, chills, weakness, fatigue EYE: Present: no symptoms reported ENT: Present: no symptoms reported Respiratory: Present: no symptoms reported. Absent: shortness of breath, cough , wheezing Cardiology: Present: no symptoms reported. Absent: chest pain, palpitations, edema Gastrointestinal/Abdominal: Present: nausea. Absent: vomiting, diarrhea, abdominal pain Genitourinary: Present: no symptoms reported Musculoskeletal: Present: no symptoms reported. Absent: back pain, joint pain Skin: Present: no symptoms reported. Absent: rash, change in color Neurological: Present: headache. Absent: dizziness/light-headedness, numbness, tingling All Other Systems: All systems neg except as marked - Patient's Past Medical History Patient History - Medical: Anxiety, Depression, Headache, Migraines Patient History - Cardiac/Respiratory: No pertinent hx Patient History - Cancer: No Hx of Cancer Patient History - Surgical Procedures: Patient History - Other: None - Family History Mother Family History - Medical: Diabetes Type 2 Insulin Dependent, Other - Social History Living Situations: home Abuse History: No History of abuse Psych History: Hx of Anxiety, Hx of Depression, Hx of Psychiatric Tx, Current tx /ever been on anti-depressants or anti-anxiety meds Does anyone smoke in the home?: Yes Smoking Status: Former smoker Have you smoked in the past 12 months: Yes Smoking Stop Date: 09/25/16 Alcohol Use: occasionally Drug Use: benzodiazepine, marijuana - Immunizations Immunizations Up to Date: Yes Hx Pneumococcal Vaccination: No History of Influenza Vaccine: No Physical Exam - Physical Exam General Appearance: Present: wd/wn, alert, no apparent distress Head Exam: Present: normal inspection, no evidence of injury Eye Exam: Normal inspection: bilateral, PERRL: bilateral, EOMI: bilateral Neck: Present: normal inspection, nontender. 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 Absent: pallor, skin rash ED Progress - Date and Time Seen: Date and Time: 11/26/16 13:31 As condition is chronic and symptoms are not severe or do not involve concerning signs for aneurism feel that pt. best option would be follow up with neurology so they can start her on medication for prevention. - Vital Signs Patient's Vital Signs:: I have reviewed the patient's vital signs. Vital Signs: Vital Signs 11/26/16 11/26/16 12:36 12:52 Temperature 37.1 C 36.8 C Pulse Rate 103 H Respiratory 18 Rate Blood Pressure 131/76 142/84 O2 Sat by Pulse 98 Oximetry - Progress/Reassessment Chief Complaint: Headache Departure Clinical Impression: Migraine headache Qualifiers: Migraine type: without aura Status migrainosus presence: without status migrainosus Intractability: not intractable Qualified Code(s): G43.009 - Migraine without aura, not intractable, without status migrainosus - Departure Disposition: Home self-care Condition: Good Instructions: Recurrent Migraine Headache, [id number] Additional Instructions: Please follow up with neurology by calling them for first available appointment Referrals: Conner Garcia MD [Staff Physician] -
[2016-11-26] MEDS ORDERED: NALBUPHINE HCL 20 MG/ML AMPUL ONE (13:42)
[2016-11-26] MEDS ORDERED: diphenhydrAMINE HCL 50 MG/ML VIAL ONE (13:42)
[2016-11-26] MEDS ORDERED: METOCLOPRAMIDE HCL 5 MG/ML VIAL ONE (13:42)
[2016-11-26 13:51] VITALS: BP 132/88
== END 2016-11-26 13:52 | disposition home or self-care (01) ==
LOC: ER 12:36
DX: G43.909 Migraine, unspecified, not intractable, without status migrainosus (principal); Z87.891 Personal history of nicotine dependence; F41.9 Anxiety disorder, unspecified

== ENCOUNTER 2016-12-07 15:35 | Emergency (ER) | payer MEDICARE, OTHER ==
[2016-12-07] MEDS ORDERED: diphenhydrAMINE HCL 50 MG/ML VIAL IM ONE (15:46)
[2016-12-07] MEDS ORDERED: METOCLOPRAMIDE HCL 5 MG/ML VIAL IM ONE (15:46)
[2016-12-07] MEDS ORDERED: DICYCLOMINE HCL 10 MG/ML AMPUL IM ONE ×2 (15:46→15:58)
[2016-12-07] MEDS ORDERED: METOCLOPRAMIDE HCL 5 MG/ML VIAL ONE (15:58)
[2016-12-07] MEDS ORDERED: diphenhydrAMINE HCL 50 MG/ML VIAL ONE (15:58)
--- NOTE | 2016-12-07 15:59 | ERNOTE ---
Medical Problem HPI - Narrative Date of Service: 12/07/16 - General Chief Complaint: Nausea/Vomiting Time Seen by Provider: 12/07/16 15:44 Source: patient Exam Limitations: no limitations - Immun/Allergies/Home Medications Immunizations: IMMUNIZATION HX Immunizations Up to Date Yes History of Influenza Vaccine No Hx Pneumococcal Vaccination No Allergies/Adverse Reactions: Allergies diclofenac sodium [From Voltaren] Allergy (Intermediate, Verified 12/07/16 15:40 ) seizure paroxetine HCl [From Paxil] Allergy (Mild, Verified 12/07/16 15:40) rash venlafaxine HCl [From Effexor] Allergy (Mild, Verified 12/07/16 15:40) rash ziprasidone HCl [From Geodon] Adverse Reaction (Severe, Verified 12/07/16 15:40) Itching ziprasidone mesylate [From Geodon] Adverse Reaction (Severe, Verified 12/07/16 15:40) Itching sumatriptan [From Imitrex] Adverse Reaction (Intermediate, Verified 12/07/16 15: 40) Nausea sumatriptan succinate [From Imitrex] Adverse Reaction (Intermediate, Verified 15:40) Nausea ketorolac tromethamine [From Toradol] Adverse Reaction (Mild, Verified 12/07/16 15:40) Vomiting tramadol Adverse Reaction (Mild, Verified 12/07/16 15:40) Vomiting Home Medications: HOME MEDICATIONS ALPRAZolam [Xanax] 1 mg PO QID #120 tab 03/23/15 [Last Taken 04/06/15] Nebulizer [Compact Ultrasonic Nebulizer] 1 each MC QID #1 kit 03/01/16 [Last Taken Unknown] Albuterol Sulfate [Proair Hfa] 2 puff IH QID PRN #1 inhaler 08/16/16 [Last Taken Unknown] Ibuprofen [Motrin] 600 mg PO TID PRN #15 tab 09/14/16 [Last Taken Unknown] Albuterol Sulfate/Ipratropium [Duoneb 2.5-0.5MG/3ML Soln] 3 ml IH BID 11/26/16 [ Last Taken Unknown] Dicyclomine HCl [Bentyl] 10 mg PO TID #30 capsule 12/07/16 [Last Taken Unknown] - History of Present History Narrative: Pt. comes in with c/o diffuse BLQ abdominal pain for 8 hours. Pt. states taht it is accompanied by nausea and vomiting and while she has been able to eat today she has vomited three times. Pt. states that after vomiting she developed a headache as well. Pt. denies " worst headache ever", SOB, CP, fever , dizziness, blurred or doubled vision, weakness, numbness, or tingling. Pt. denies any prehospital treatment, alleviating factors, or aggravating factors. Review of Systems - Review of Systems Constitutional: Present: no symptoms reported. Absent: recent illness, fever, chills, weakness, fatigue, malaise EYE: Present: no symptoms reported ENT: Present: no symptoms reported Respiratory: Present: no symptoms reported. Absent: shortness of breath, cough , wheezing Cardiology: Present: no symptoms reported. Absent: chest pain, palpitations, edema Gastrointestinal/Abdominal: Present: nausea, vomiting, abdominal pain. Absent: diarrhea, constipation, eating less, drinking less Genitourinary: Present: no symptoms reported Musculoskeletal: Present: no symptoms reported. Absent: back pain, joint pain Skin: Present: no symptoms reported Neurological: Present: headache. Absent: dizziness/light-headedness, numbness, tingling All Other Systems: All systems neg except as marked - Patient's Past Medical History Patient History - Medical: Anxiety, Depression, Headache, Migraines Patient History - Cardiac/Respiratory: No pertinent hx Patient History - Cancer: No Hx of Cancer Patient History - Surgical Procedures: Patient History - Other: None - Family History Mother Family History - Medical: Diabetes Type 2 Insulin Dependent, Other - Social History Living Situations: home Abuse History: No History of abuse Psych History: Hx of Anxiety, Hx of Depression, Hx of Psychiatric Tx, Current tx /ever been on anti-depressants or anti-anxiety meds Does anyone smoke in the home?: Yes Alcohol Use: occasionally Drug Use: benzodiazepine, marijuana - Immunizations Immunizations Up to Date: Yes Hx Pneumococcal Vaccination: No History of Influenza Vaccine: No Physical Exam - Physical Exam General Appearance: Present: wd/wn, alert, no apparent distress Head Exam: Present: normal inspection, no evidence of injury Eye Exam: Normal inspection: bilateral, PERRL: bilateral, EOMI: bilateral Ears, Nose, Throat: Present: normal ENT inspection, normal pharynx Neck: Present: normal inspection, nontender. Absent: lymphadenopathy (R), lymphadenopathy (L) Respiratory: Present: no respiratory distress, normal breath sounds, no accessory muscle use, chest nontender, lungs clear Cardiovascular/Chest: Present: regular rate, rhythm, no murmur, normal peripheral pulses Gastrointestinal/Abdominal: Present: normal bowel sounds, nondistended, soft, no organomegaly, tenderness - BLQ mild. 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 Absent: pallor, skin rash ED Progress - Date and Time Seen: Date and Time: 12/07/16 16:41 Pt. states that her symptoms have resolved and she would like to go home without abd xray I feel that this is ok as symptoms are likely due to gastroenteritis. 12/07/16 16:45 Pt. heart rate elevated in 120-130s at this time which can be caused by dehydration but would like to evaluate further pt. refusing further evaluation made pt. sign AMA for this. - Results and Orders Patient's Lab Results:: I have reviewed the patient's lab results. - Vital Signs Patient's Vital Signs:: I have reviewed the patient's vital signs. Vital Signs: Vital Signs 12/07/16 15:38 Temperature 36.5 C Pulse Rate 120 H Respiratory 12 Rate Blood Pressure 128/87 O2 Sat by Pulse 96 Oximetry - Progress/Reassessment Chief Complaint: Nausea/Vomiting Progress:: Pain free at discharge Departure - Departure Clinical Impression: Gastroenteritis Disposition: Against medical advice Condition: Good Instructions: Viral Gastroenteritis, Adult, [id number] Additional Instructions: Please increase fluid intake and follow up with PCP in 2-3 days. Prescriptions: Dicyclomine HCl [Bentyl] 10 mg PO TID #30 capsule
[2016-12-07 16:01] LABS: Hematocrit 40.7 % (37.0-47.0); Hemoglobin 13.8 gm/dL (12.5-16.0); Mean Cell Volume 93.3 fl (78-100); Mean Corpuscular Hemoglobin 31.7 pg (27-31); Mean Corpuscular Hgb Conc 33.9 g/dl (32-36); Mean Platelet Volume 9.3 fl (6.0-9.5); Neutrophil # 5.9 K/mm3 (1.3-6.0); Neutrophil % 57.9 % (42-75.0); Platelet Count 352 K/mm3 (150-450); Red Blood Count 4.36 M/mm3 (4.2-5.4); Red Cell Distribution Width 12.4 % (11.5-14.0); White Blood Count 10.2 K/mm3 (4.0-10.5)
[2016-12-07 16:14] LABS: Albumin * 3.7 gm/dl (3.4-5.0); Anion Gap 16.4 mmol/L (6.8-13.8); BUN/Creatinine Ratio 18.1 (9.0-21.6); Bilirubin, Total 0.3 mg/dL (0.0-1.1); Ca. Corrected For Albumin 8.9 mg/dL (8.4-10.2); Carbon Dioxide 24.3 mmol/L (24-32.6); Potassium 3.7 mmol/L (3.4-4.6); Total Protein 7.5 gm/dL (6.2-8.2)
[2016-12-07 16:26] LABS: Urine Bilirubin Negative (NEGATIVE); Urine Blood Negative /ul (NEGATIVE); Urine Ketone Negative (NEGATIVE); Urine Nitrite Negative (NEGATIVE); Urine Protein Negative (NEGATIVE); Urine Specific Gravity 1.015 SP.GR. (1.005-1.010); Urine Urobilinogen Normal (NORMAL); Urine pH 5.5 pH (5.0-7.0)
[2016-12-07 16:33] LABS: Urine Appearance Clear; Urine Bacteria TRACE; Urine Color Yellow; Urine RBC None Seen /hpf (0-5); Urine WBC 0-5 /hpf (0-5)
[2016-12-07 16:48] VITALS: BP 117/82
== END 2016-12-07 16:51 | disposition left against medical advice (07) ==
LOC: ER 15:35
DX: K52.9 Noninfective gastroenteritis and colitis, unspecified (principal); F41.8 Other specified anxiety disorders; Z77.22 Contact with and (suspected) exposure to environmental tobacco smoke (acute) (chronic); Z53.29 Procedure and treatment not carried out because of patient's decision for other reasons

== ENCOUNTER 2017-01-03 09:37 | Emergency (ER) | payer MEDICARE, OTHER ==
--- NOTE | 2017-01-03 10:20 | ERNOTE ---
Abdominal HPI - Narrative Date of Service: 01/03/17 - General Chief Complaint: Abdominal Pain Time Seen by Provider: 01/03/17 10:19 Source: patient, RN notes reviewed Exam Limitations: no limitations - Immun/Allergies/Home Medications Immunizatons: IMMUNIZATION HX Immunizations Up to Date Yes History of Influenza Vaccine No Hx Pneumococcal Vaccination No Allergies/Adverse Reactions: Allergies diclofenac sodium [From Voltaren] Allergy (Intermediate, Verified 01/03/17 10:10 ) seizure paroxetine HCl [From Paxil] Allergy (Mild, Verified 01/03/17 10:10) rash venlafaxine HCl [From Effexor] Allergy (Mild, Verified 01/03/17 10:10) rash ziprasidone HCl [From Geodon] Adverse Reaction (Severe, Verified 01/03/17 10:10) Itching ziprasidone mesylate [From Geodon] Adverse Reaction (Severe, Verified 01/03/17 10:10) Itching sumatriptan [From Imitrex] Adverse Reaction (Intermediate, Verified 01/03/17 10: 10) Nausea sumatriptan succinate [From Imitrex] Adverse Reaction (Intermediate, Verified 10:10) Nausea ketorolac tromethamine [From Toradol] Adverse Reaction (Mild, Verified 01/03/17 10:10) Vomiting tramadol Adverse Reaction (Mild, Verified 01/03/17 10:10) Vomiting Home Medications: HOME MEDICATIONS ALPRAZolam [Xanax] 1 mg PO QID #120 tab 03/23/15 [Last Taken 04/06/15] Nebulizer [Compact Ultrasonic Nebulizer] 1 each MC QID #1 kit 03/01/16 [Last Taken Unknown] Albuterol Sulfate [Proair Hfa] 2 puff IH QID PRN #1 inhaler 08/16/16 [Last Taken Unknown] Ibuprofen [Motrin] 600 mg PO TID PRN #15 tab 09/14/16 [Last Taken Unknown] Albuterol Sulfate/Ipratropium [Duoneb 2.5-0.5MG/3ML Soln] 3 ml IH BID 11/26/16 [ Last Taken Unknown] Dicyclomine HCl [Bentyl] 10 mg PO TID #30 capsule 12/07/16 [Last Taken Unknown] Ciprofloxacin HCl [Cipro] 500 mg PO BID #20 tablet 01/03/17 [Last Taken Unknown] Ondansetron [Zofran Odt] 8 mg PO Q8H PRN #12 tab 01/03/17 [Last Taken Unknown] metroNIDAZOLE [Flagyl] 500 mg PO Q8H #30 tablet 01/03/17 [Last Taken Unknown] - History of Present Illness Narrative: 51 year old female presents to the ED for RUQ abdominal pain and a headache. She has been having the abdominal pain for 2 or 3 weeks. She has had nausea but no vomiting. She reports having a normal bowel movement today. She has not been able to eat much due to the pain but has been drinking well. The headache has been present for 3 days. She reports that it is similar to her usual headaches. She has been taking over the counter pain relievers for the headache without improvement. Timing: intermittent Quality: severe, sharpness Modifying Factors - (Improves): Present: rest Modifying Factors - (Worsens): Present: eating, movement Prior Treatment: Present: recently seen. Absent: currently on antibiotics Review of Systems - Review of Systems Constitutional: Present: chills, fatigue, malaise. Absent: fever EYE: Present: no symptoms reported ENT: Present: no symptoms reported Respiratory: Absent: shortness of breath, cough Cardiology: Absent: chest pain, edema Gastrointestinal/Abdominal: Present: See HPI Genitourinary: Absent: dysuria, hematuria Musculoskeletal: Absent: back pain, joint pain Skin: Absent: rash, lesions Neurological: Present: headache. Absent: dizziness/light-headedness Endocrine: Present: no symptoms reported Hematologic/Lymphatic: Present: no symptoms reported Psych: Present: emotional problems - Patient's Past Medical History Patient History - Medical: Anxiety, Depression, Headache, Migraines Patient History - Cardiac/Respiratory: No pertinent hx Patient History - Cancer: No Hx of Cancer Patient History - Surgical Procedures: Patient History - Other: None - Family History Mother Family History - Medical: Diabetes Type 2 Insulin Dependent, Other - Social History Living Situations: home Abuse History: No History of abuse Psych History: Hx of Anxiety, Hx of Depression, Hx of Psychiatric Tx, Current tx /ever been on anti-depressants or anti-anxiety meds Does anyone smoke in the home?: Yes Smoking Status: Former smoker Alcohol Use: occasionally Drug Use: benzodiazepine, marijuana - Immunizations Immunizations Up to Date: Yes Hx Pneumococcal Vaccination: No History of Influenza Vaccine: No Physical Exam - Physical Exam General Appearance: Present: alert, mild distress, obese Neck: Present: normal inspection, nontender, supple Respiratory: Present: no respiratory distress, normal breath sounds, no accessory muscle use, chest nontender, lungs clear Cardiovascular/Chest: Present: regular rate, rhythm, no murmur, normal peripheral pulses Gastrointestinal/Abdominal: Present: soft, tenderness - RUQ, abnormal bowel sounds - hyperactive in RUQ, distended. Absent: guarding, rebound, mass Back Exam: Present: normal inspection, no CVA tenderness Extremity Exam: Present: normal inspection, normal range of motion, no edema Neurological Exam: Present: alert, oriented, normal mood/affect, no motor/ sensory deficits Skin Exam: Present: normal color, warm/dry ED Progress - Results and Orders Patient's Lab Results:: I have reviewed the patient's lab results. - Vital Signs Patient's Vital Signs:: I have reviewed the patient's vital signs. Vital Signs: Vital Signs 01/03/17 10:08 Temperature 36.7 C Pulse Rate 91 Respiratory 14 Rate Blood Pressure 129/81 O2 Sat by Pulse 98 Oximetry - X-Ray X-Ray #1 X-Ray: abdomen Interpretation: Reviewed by me X-ray Comments: Abnormal but nonobstructive bowel gas pattern with scattered air fluid levels - CT/Ultrasound CT/Ultrasound Narrative: IMPRESSION: 1. Equivocal bowel wall prominence of the descending and sigmoid colon, also affected by diverticular outpouchings. Very little inflammatory changes are suggested. This is equivocal, but consider potential colitis or diverticulitis. 2. Normal caliber appendix not visualized but no definite signs of right lower quadrant or pericecal inflammatory changes. Correlate clinically for previous appendectomy. 3. No evidence for obstructive uropathy. 4. Potentially thickened appearance of the endometrial canal. Recommend further evaluation by routine pelvic ultrasound. Correlate clinically for any abnormal uterine bleeding. 5. Additional comments are as above. Electronically signed by Amairani Zhang M.D.. Amairani Zhang MD - Progress/Reassessment Chief Complaint: Abdominal Pain Progress:: Improved Plan - Plan Plan: Discussed test results. Will treat as potential diverticulitis/colitis even though her symptoms are not necessarily consistent with this. Recommended f/u with hearing aid fitter d/t endometrial thickening seen on CT. Departure Clinical Impression: Colitis Abdominal pain Qualifiers: Abdominal location: right upper quadrant Qualified Code(s): R10.11 - Right upper quadrant pain Migraine headache Qualifiers: Migraine type: unspecified Status migrainosus presence: without status migrainosus Intractability: not intractable Qualified Code(s): G43.909 - Migraine, unspecified, not intractable, without status migrainosus - Departure Disposition: Home Follow Up Needed Condition: Stable Instructions: Colitis Additional Instructions: Drink plenty of fluids Soft, bland diet as tolerated Return for fevers, worsening pain, vomiting or other concerns Prescriptions: Ciprofloxacin HCl [Cipro] 500 mg PO BID #20 tablet metroNIDAZOLE [Flagyl] 500 mg PO Q8H #30 tablet Ondansetron [Zofran Odt] 8 mg PO Q8H PRN #12 tab PRN Reason: Nausea
[2017-01-03] MEDS ORDERED: DICYCLOMINE HCL 10 MG/ML AMPUL IM ONE ×2 (10:26→10:36)
[2017-01-03] MEDS ORDERED: diphenhydrAMINE HCL 50 MG/ML VIAL IM ONE (10:26)
[2017-01-03] MEDS ORDERED: METOCLOPRAMIDE HCL 5 MG/ML VIAL IV ONE (10:26)
[2017-01-03] MEDS ORDERED: METOCLOPRAMIDE HCL 5 MG/ML VIAL IM ONE (10:35)
[2017-01-03] MEDS ORDERED: METOCLOPRAMIDE HCL 5 MG/ML VIAL ONE (10:36)
[2017-01-03] MEDS ORDERED: diphenhydrAMINE HCL 50 MG/ML VIAL ONE (10:36)
[2017-01-03 10:43] LABS: Hematocrit 41.1 % (37.0-47.0); Hemoglobin 13.8 gm/dL (12.5-16.0); Mean Cell Volume 92.8 fl (78-100); Mean Corpuscular Hemoglobin 31.2 pg (27-31); Mean Corpuscular Hgb Conc 33.6 g/dl (32-36); Mean Platelet Volume 9.2 fl (6.0-9.5); Neutrophil # 3.9 K/mm3 (1.3-6.0); Neutrophil % 51.1 % (42-75.0); Platelet Count 346 K/mm3 (150-450); Red Blood Count 4.43 M/mm3 (4.2-5.4); Red Cell Distribution Width 12.1 % (11.5-14.0); White Blood Count 7.7 K/mm3 (4.0-10.5)
[2017-01-03 10:58] LABS: Albumin * 3.9 gm/dl (3.4-5.0); Anion Gap 14.8 mmol/L (6.8-13.8); BUN/Creatinine Ratio 11.7 (9.0-21.6); Bilirubin, Total 0.5 mg/dL (0.0-1.1); Ca. Corrected For Albumin 8.7 mg/dL (8.4-10.2); Calcium * 8.9 mg/dL (7.9-10.9); Carbon Dioxide 25.1 mmol/L (24-32.6); Potassium 3.9 mmol/L (3.4-4.6); Total Protein 7.9 gm/dL (6.2-8.2)
[2017-01-03 11:05] LABS: Urine Appearance Clear; Urine Color Yellow
[2017-01-03 11:06] LABS: Urine Bacteria None Seen; Urine Bilirubin Negative (NEGATIVE); Urine Blood 5 /ul (NEGATIVE); Urine Ketone Negative (NEGATIVE); Urine Nitrite Negative (NEGATIVE); Urine Protein Negative (NEGATIVE); Urine RBC 0-5 /hpf (0-5); Urine Urobilinogen Normal (NORMAL); Urine WBC 0-5 /hpf (0-5); Urine pH 6.5 pH (5.0-7.0)
[2017-01-03] MEDS ORDERED: DIATRIZOATE MEGLUMINE, SODIUM 30 ML BTL ONE (11:44)
[2017-01-03] MEDS ORDERED: DIATRIZOATE MEGLUMINE, SODIUM 30 ML BTL PO ONE (12:05)
[2017-01-03] MEDS ORDERED: metroNIDAZOLE 500 MG TABLET PO ONE (14:59)
[2017-01-03] MEDS ORDERED: CIPROFLOXACIN HCL 250 MG TABLET PO ONE (14:59)
[2017-01-03] MEDS ORDERED: CIPROFLOXACIN HCL 250 MG TABLET ONE (15:05)
[2017-01-03] MEDS ORDERED: metroNIDAZOLE 500 MG TABLET ONE (15:05)
[2017-01-03 15:09] VITALS: BP 132/78
== END 2017-01-03 15:08 | disposition home or self-care (01) ==
LOC: ER 09:37
DX: R10.11 Right upper quadrant pain (principal); G43.909 Migraine, unspecified, not intractable, without status migrainosus

== ENCOUNTER 2017-02-04 16:27 | Emergency (ER) | payer MEDICARE, OTHER ==
[2017-02-04 17:10] LABS: Hemoglobin 13.7 gm/dL (12.5-16.0); Mean Cell Volume 91.1 fl (78-100); Mean Corpuscular Hemoglobin 31.2 pg (27-31); Mean Corpuscular Hgb Conc 34.3 g/dl (32-36); Mean Platelet Volume 9.7 fl (6.0-9.5); Neutrophil % 48.4 % (42-75.0); Platelet Count 361 K/mm3 (150-450); Red Blood Count 4.39 M/mm3 (4.2-5.4); Red Cell Distribution Width 12.1 % (11.5-14.0); White Blood Count 8.4 K/mm3 (4.0-10.5)
[2017-02-04 17:31] LABS: ALT 29 U/L (19-67); AST 13 U/L (0-48); Albumin * 3.6 gm/dl (3.4-5.0); Alkaline Phosphatase * 60 U/L (50-170); BUN/Creatinine Ratio 13.2 (9.0-21.6); Bilirubin, Total 0.1 mg/dL (0.0-1.1); Blood Urea Nitrogen 12 mg/dL (3-23); Ca. Corrected For Albumin 9.5 mg/dL (8.4-10.2); Calcium * 9.5 mg/dL (7.9-10.9); Carbon Dioxide 27.1 mmol/L (24-32.6); Chloride 103 mmol/L (97-106); Glucose * 128 mg/dL (70-110); Potassium 4.1 mmol/L (3.4-4.6); Salicylate Less than 2.8 mg/dL (2.8-20.0); Sodium 142 mmol/L (132-142); Total Protein 7.4 gm/dL (6.2-8.2)
[2017-02-04] MEDS ORDERED: LORazepam 2 MG/ML DISP.SYRIN IM ONE (17:34)
[2017-02-04] MEDS ORDERED: LORazepam 2 MG/ML DISP.SYRIN ONE (17:36)
[2017-02-04 18:10] LABS: Urine Bilirubin Negative (NEGATIVE); Urine Blood Negative /ul (NEGATIVE); Urine Ketone 5 mg/dL (NEGATIVE); Urine Nitrite Negative (NEGATIVE); Urine Protein Negative (NEGATIVE); Urine Urobilinogen Normal (NORMAL); Urine pH 7.5 pH (5.0-7.0)
[2017-02-04] MEDS ORDERED: HALOPERIDOL LACTATE 5 MG/ML VIAL IM ONE (18:11)
[2017-02-04] MEDS ORDERED: HALOPERIDOL LACTATE 5 MG/ML VIAL ONE (18:14)
--- NOTE | 2017-02-04 18:27 | ERNOTE ---
<Jordan Ha - Last Filed: 02/04/17 19:37> Psychological HPI - Date Date of Service: 02/04/17 - General Chief Complaint: Psychiatric Problem Source: Reports: patient Exam Limitations: Reports: other - patient verbally aggressive at times - Immun/Allergies/Home Medications Allergies/Adverse Reactions: Allergies diclofenac sodium [From Voltaren] Allergy (Intermediate, Verified 02/04/17 16:34 ) seizure paroxetine HCl [From Paxil] Allergy (Mild, Verified 02/04/17 16:34) rash venlafaxine HCl [From Effexor] Allergy (Mild, Verified 02/04/17 16:34) rash ziprasidone HCl [From Geodon] Adverse Reaction (Severe, Verified 02/04/17 16:34) Itching ziprasidone mesylate [From Geodon] Adverse Reaction (Severe, Verified 02/04/17 16:34) Itching sumatriptan [From Imitrex] Adverse Reaction (Intermediate, Verified 02/04/17 16: 34) Nausea sumatriptan succinate [From Imitrex] Adverse Reaction (Intermediate, Verified 16:34) Nausea ketorolac tromethamine [From Toradol] Adverse Reaction (Mild, Verified 02/04/17 16:34) Vomiting tramadol Adverse Reaction (Mild, Verified 02/04/17 16:34) Vomiting Home Medications: HOME MEDICATIONS ALPRAZolam [Xanax] 1 mg PO QID #120 tab 03/23/15 [Last Taken 04/06/15] Nebulizer [Compact Ultrasonic Nebulizer] 1 each QID #1 kit 03/01/16 [Last Taken Unknown] Albuterol Sulfate [Proair Hfa] 2 puff IH QID PRN #1 inhaler 08/16/16 [Last Taken Unknown] Ibuprofen [Motrin] 600 mg PO TID PRN #15 tab 09/14/16 [Last Taken Unknown] Albuterol Sulfate/Ipratropium [Duoneb 2.5-0.5MG/3ML Soln] 3 ml IH BID 11/26/16 [ Last Taken Unknown] Dicyclomine HCl [Bentyl] 10 mg PO TID #30 capsule 12/07/16 [Last Taken Unknown] Ciprofloxacin HCl [Cipro] 500 mg PO BID #20 tablet 01/03/17 [Last Taken Unknown] metroNIDAZOLE [Flagyl] 500 mg PO Q8H #30 tablet 01/03/17 [Last Taken Unknown] - History of Present Illness Narrative: Patient presents telling the lead front end developer she is Homicidal. When I enter the room she tells me "I'm suicidal and homicidal". She states she would choke herself. She states she would choke someone but does not have a clear person she wishes to harm. She relates her mother is gone to [place] and she doesn' t have any money and no where to go. She tells me she is stuck in her trailer due to this. She has chronic back pain, no new or acute symptoms. Denies focal N/T/W. Time Seen by Provider: 02/04/17 16:46 Arrived by: Denies: ambulance Onset/duration: Reports: gradual onset Intent: Reports: other - states she is suicidal and homicidal Situational Problems: Reports: other - problems with mother Associated Symptoms: Reports: hostile. Denies: hallucinating Prior Treament: Denies: recently hospitalized Review of Systems - Narrative Narrative: difficult to obtain due to psychiatric illness - Review of Systems Constitutional: Absent: fever Respiratory: Absent: shortness of breath Cardiology: Absent: chest pain Gastrointestinal/Abdominal: Absent: abdominal pain - Patient's Past Medical History Patient History - Medical: Anxiety, Depression, Headache, Migraines Patient History - Cardiac/Respiratory: No pertinent hx Patient History - Cancer: No Hx of Cancer Patient History - Surgical Procedures: Patient History - Other: None - Family History Mother Family History - Medical: Diabetes Type 2 Insulin Dependent, Other - Social History Living Situations: home Abuse History: No History of abuse Psych History: Hx of Anxiety, Hx of Depression, Hx of Psychiatric Tx, Current tx /ever been on anti-depressants or anti-anxiety meds Alcohol Use: none Drug Use: none - Immunizations Immunizations Up to Date: Yes Hx Pneumococcal Vaccination: No History of Influenza Vaccine: No Psychological Exam - Exam General Appearance: Present: alert, other - labile, agressive verbally at times Head Exam: Present: normal inspection Neurological: Present: alert, boat patcher plastic II-XII nml as tested Thoughts/Hallucinations: Absent: visual hallucinations Behavior/Eye Contact/Speech: Present: threatening eye contact Eye Exam: Normal inspection: bilateral, PERRL: bilateral Ears, Nose, Throat: Present: normal ENT inspection Neck: Present: normal inspection Respiratory: Present: no respiratory distress, no accessory muscle use, lungs clear Cardiovascular/Chest: Present: regular rate, rhythm Gastrointestinal/Abdominal: Present: normal bowel sounds, nontender, soft Back Exam: Present: normal range of motion Extremity Exam: Present: normal range of motion Skin Exam: Present: normal color, warm/dry ED Progress - Results and Orders Patient's Lab Results:: I have reviewed the patient's lab results. - Vital Signs Patient's Vital Signs:: I have reviewed the patient's vital signs. Vital Signs: Vital Signs 02/04/17 16:31 Temperature 36.7 C Pulse Rate 122 H Respiratory 12 Rate Blood Pressure 132/99 O2 Sat by Pulse 96 Oximetry - Progress/Reassessment Chief Complaint: Psychiatric Problem Progress Note-Subjective: 02/04/17 18:25 The patient had made both suicidal statements and homicidal statements. She tried to leave so I obtained emergency court hold via telephone by Outboard Technician Deven. Outboard Technician Deven gave emergency hold. Patient given Ativan and Haldol and also police were called initially. - Transfer of Care Physician Sign Out: Jordan Ha Receiving Physician: Kevon Rico Expected Disposition: Transfer Departure Clinical Impression: Homicidal ideation, Suicidal thoughts - Departure Disposition: Other health care facility Condition: Stable <Kevon Rico - Last Filed: 02/05/17 07:56> ED Progress - Vital Signs Vital Signs: Vital Signs 02/04/17 16:31 Temperature 36.7 C Pulse Rate 122 H Respiratory 12 Rate Blood Pressure 132/99 O2 Sat by Pulse 96 Oximetry Plan - Plan Plan: I have assumed care of this patient from Dr. Ha. The patient is placed on an involuntary hold. We are awaiting transfer and acceptance at a psychiatric facility. If the patient becomes belligerent or argumentative, treatment with Haldol and Ativan has been recommended. It is now 8:00 in the morning on 02/05/2017. I have reinforced this back over to Dr. Ha. We're going to restart finding her a place. We will recall all the facilities. She has had an uneventful night. The patient is trying to convince the physicians and nursing staff that she should be able to go home.
[2017-02-04 19:00] LABS: Urine Amorphous Sediment Moderate - 2+ (NONE-FEW); Urine Appearance Cloudy; Urine Bacteria 2+; Urine Color Yellow; Urine RBC TRACE /hpf (0-5)
[2017-02-04 19:04] LABS: Cocaine Ur Negative (NEGATIVE); Urine Barbiturate Negative (NEGATIVE); Urine Opiates Negative (NEGATIVE); Urine PCP Negative (NEGATIVE)
[2017-02-04 19:07] LABS: Urine Benzodiazepines Positive (NEGATIVE); Urine THC Positive (NEGATIVE)
[2017-02-05] MEDS ORDERED: ACETAMINOPHEN 500 MG TABLET PO ONE (08:17)
[2017-02-05] MEDS ORDERED: LORazepam 1 MG TABLET PO ONE (09:26)
[2017-02-05] MEDS ORDERED: DICYCLOMINE HCL 10 MG CAPSULE PO ONE (09:26)
[2017-02-05] MEDS ORDERED: LORazepam 1 MG TABLET ONE (09:40)
[2017-02-05] MEDS ORDERED: DICYCLOMINE HCL 20 MG TABLET ONE (09:40)
[2017-02-05] MEDS ORDERED: HALOPERIDOL LACTATE 5 MG/ML VIAL IM ONE (11:47)
[2017-02-05] MEDS ORDERED: LORazepam 2 MG/ML DISP.SYRIN IM ONE (11:47)
[2017-02-05] MEDS ORDERED: LORazepam 2 MG/ML DISP.SYRIN ONE (11:52)
[2017-02-05] MEDS ORDERED: HALOPERIDOL LACTATE 5 MG/ML VIAL ONE (12:04)
[2017-02-05 12:41] VITALS: BP 138/83
== END 2017-02-05 13:45 | disposition short-term general hospital (02) ==
LOC: ER 16:27
DX: R45.850 Homicidal ideations (principal); R45.851 Suicidal ideations; F41.8 Other specified anxiety disorders
CPT/HCPCS: 36415; 80053; 80307; 81001; 84443; 84703; 85025; 93005; 96372; 99285; G0480; G0481

== ENCOUNTER 2017-02-27 10:22 | Emergency (ER) | payer MEDICARE, OTHER ==
[2017-02-27 10:34] VITALS: BP 134/79
[2017-02-27] MEDS ORDERED: NALBUPHINE HCL 20 MG/ML AMPUL IM ONE (11:15)
[2017-02-27] MEDS ORDERED: PROMETHAZINE HCL 25 MG/ML AMPUL IM ONE (11:15)
--- NOTE | 2017-02-27 11:18 | ERNOTE ---
Headache ER HPI - Narrative Date of Service: 02/27/17 - General Presenting Symptoms: headache, "migraine" Time Seen by Provider: 02/27/17 11:01 Source: patient Exam Limitations: no limitations - Immun/Allergies/Home Medications Immunizations: IMMUNIZATION HX Immunizations Up to Date Yes History of Influenza Vaccine Yes Hx Pneumococcal Vaccination Yes Allergies/Adverse Reactions: Allergies diclofenac sodium [From Voltaren] Allergy (Intermediate, Verified 02/27/17 10:34 ) seizure paroxetine HCl [From Paxil] Allergy (Mild, Verified 02/27/17 10:34) rash venlafaxine HCl [From Effexor] Allergy (Mild, Verified 02/27/17 10:34) rash ziprasidone HCl [From Geodon] Adverse Reaction (Severe, Verified 02/27/17 10:34) Itching ziprasidone mesylate [From Geodon] Adverse Reaction (Severe, Verified 02/27/17 10:34) Itching sumatriptan [From Imitrex] Adverse Reaction (Intermediate, Verified 02/27/17 10: 34) Nausea sumatriptan succinate [From Imitrex] Adverse Reaction (Intermediate, Verified 10:34) Nausea ketorolac tromethamine [From Toradol] Adverse Reaction (Mild, Verified 02/27/17 10:34) Vomiting tramadol Adverse Reaction (Mild, Verified 02/27/17 10:34) Vomiting Home Medications: HOME MEDICATIONS ALPRAZolam [Xanax] 1 mg PO QID #120 tab 03/23/15 [Last Taken 04/06/15] Nebulizer [Compact Ultrasonic Nebulizer] 1 each MC QID #1 kit 03/01/16 [Last Taken Unknown] Albuterol Sulfate [Proair Hfa] 2 puff IH QID PRN #1 inhaler 08/16/16 [Last Taken Unknown] Ibuprofen [Motrin] 600 mg PO TID PRN #15 tab 09/14/16 [Last Taken Unknown] Albuterol Sulfate/Ipratropium [Duoneb 2.5-0.5MG/3ML Soln] 3 ml IH BID 11/26/16 [ Last Taken Unknown] Dicyclomine HCl [Bentyl] 10 mg PO TID #30 capsule 12/07/16 [Last Taken Unknown] Ciprofloxacin HCl [Cipro] 500 mg PO BID #20 tablet 01/03/17 [Last Taken Unknown] metroNIDAZOLE [Flagyl] 500 mg PO Q8H #30 tablet 01/03/17 [Last Taken Unknown] - Pain Pain Score: 10 - History of Present Illness Narrative: Patient presents to the ER with complaints of a migraine on the right side of her head. States this happens twice weekly but usually resolves at home with treatment. States she did not take any medication this morning but came here. Denies this is the worst headache of her life. Date (Duration): 02/27/17 Time (Timing): 08:00 Timing of Headache: cannot pinpoint onset Context Headache: Present: other - chronic migraine Quality: Present: pressure Severity Maximum: Present: severe Severity-Currently: Present: severe Headache frequency: Present: chronic headaches, similar to previous headache Modifying Factors - (Improves): Reports: medication Modifying Factors - (Worsens): Reports: movement, exposure to light Associated Symptoms: Reports: denies symptoms Exacerbated by:: Reports: light, noise Prior Treament: Reports: similar symptoms before Review of Systems - Narrative Narrative: Describes as gradual onset of migraine which appears to be worsening. Denies worse headache of her life. States symptoms are very consistent with previous headaches. Denies any neck pain, fever, or other complains. Denies any trauma - Review of Systems Constitutional: Present: no symptoms reported EYE: Present: other - photophobia ENT: Present: no symptoms reported Respiratory: Present: no symptoms reported Cardiology: Present: no symptoms reported Gastrointestinal/Abdominal: Present: nausea, other Musculoskeletal: Present: no symptoms reported Skin: Present: no symptoms reported Neurological: Present: headache, other - Symptoms consistent with previous migraines. Endocrine: Present: no symptoms reported Hematologic/Lymphatic: Present: no symptoms reported - Patient's Past Medical History Patient History - Medical: Anxiety, Depression, Headache, Migraines Patient History - Cardiac/Respiratory: No pertinent hx Patient History - Cancer: No Hx of Cancer Patient History - Surgical Procedures: Patient History - Other: None LMP (females 10-50): post - Family History Mother Family History - Medical: Diabetes Type 2 Insulin Dependent, Other - Social History Living Situations: home Abuse History: No History of abuse Psych History: Hx of Anxiety, Hx of Depression, Hx of Psychiatric Tx, Current tx /ever been on anti-depressants or anti-anxiety meds Smoking Status: Former smoker Alcohol Use: none Drug Use: none - Immunizations Immunizations Up to Date: Yes Hx Pneumococcal Vaccination: Yes History of Influenza Vaccine: Yes Physical Exam - Physical Exam Narrative: Patient has a hat pulled down over her eyes. Appears in some discomfort sensitive to light. General Appearance: Present: wd/wn, alert, moderate distress Head Exam: Present: normal inspection, no evidence of injury, no tenderness w palpation Eye Exam: Normal inspection: bilateral, PERRL: bilateral, EOMI: bilateral Ears, Nose, Throat: Present: normal ENT inspection, normal pharynx Neck: Present: normal inspection, nontender, supple, full range of motion, other - Negative nuchal rigidity Respiratory: Present: no respiratory distress, normal breath sounds Neurological Exam: Present: alert, oriented, no motor/sensory deficits, parquetry floor layer II- XII nml as tested Skin Exam: Present: normal color, warm/dry ED Progress - Vital Signs Vital Signs: Vital Signs 02/27/17 10:30 Temperature 37.0 C Pulse Rate 117 H Respiratory 16 Rate Blood Pressure 134/79 O2 Sat by Pulse 98 Oximetry - Progress/Reassessment Chief Complaint: Headache Progress Note-Subjective: 02/27/17 11:50 Patient left AMA directly after medication was given. Unknown if she was improving or not. Departure Clinical Impression: Migraine - Departure Disposition: Against medical advice Condition: Undetermined
[2017-02-27] MEDS ORDERED: NALBUPHINE HCL 20 MG/ML AMPUL ONE (11:36)
[2017-02-27] MEDS ORDERED: PROMETHAZINE HCL 25 MG/ML AMPUL ONE (11:37)
== END 2017-02-27 11:44 | disposition left against medical advice (07) ==
LOC: ER 10:22
DX: G43.909 Migraine, unspecified, not intractable, without status migrainosus (principal); F41.8 Other specified anxiety disorders; Z53.21 Procedure and treatment not carried out due to patient leaving prior to being seen by health care provider

== ENCOUNTER 2017-03-07 14:22 | Emergency (ER) | payer MEDICARE, OTHER ==
[2017-03-07] MEDS ORDERED: ONDANSETRON 4 MG TAB.RAPDIS PO ONE (14:45)
[2017-03-07] MEDS ORDERED: ONDANSETRON 4 MG TAB.RAPDIS ONE (14:46)
--- NOTE | 2017-03-07 16:33 | ERNOTE ---
Medical Problem HPI - Narrative Date of Service: 03/07/17 - General Chief Complaint: Nausea/Vomiting Time Seen by Provider: 03/07/17 16:21 Source: patient, RN notes reviewed Exam Limitations: no limitations - Immun/Allergies/Home Medications Immunizations: IMMUNIZATION HX Immunizations Up to Date Yes History of Influenza Vaccine Yes Hx Pneumococcal Vaccination Yes Allergies/Adverse Reactions: Allergies diclofenac sodium [From Voltaren] Allergy (Intermediate, Verified 03/07/17 14:45 ) seizure paroxetine HCl [From Paxil] Allergy (Mild, Verified 03/07/17 14:45) rash venlafaxine HCl [From Effexor] Allergy (Mild, Verified 03/07/17 14:45) rash ziprasidone HCl [From Geodon] Adverse Reaction (Severe, Verified 03/07/17 14:45) Itching ziprasidone mesylate [From Geodon] Adverse Reaction (Severe, Verified 03/07/17 14:45) Itching sumatriptan [From Imitrex] Adverse Reaction (Intermediate, Verified 03/07/17 14: 45) Nausea sumatriptan succinate [From Imitrex] Adverse Reaction (Intermediate, Verified 14:45) Nausea ketorolac tromethamine [From Toradol] Adverse Reaction (Mild, Verified 03/07/17 14:45) Vomiting tramadol Adverse Reaction (Mild, Verified 03/07/17 14:45) Vomiting Home Medications: HOME MEDICATIONS ALPRAZolam [Xanax] 1 mg PO QID #120 tab 03/23/15 [Last Taken 04/06/15] Nebulizer [Compact Ultrasonic Nebulizer] 1 each MC QID #1 kit 03/01/16 [Last Taken Unknown] Albuterol Sulfate [Proair Hfa] 2 puff IH QID PRN #1 inhaler 08/16/16 [Last Taken Unknown] Ibuprofen [Motrin] 600 mg PO TID PRN #15 tab 09/14/16 [Last Taken Unknown] Albuterol Sulfate/Ipratropium [Duoneb 2.5-0.5MG/3ML Soln] 3 ml IH BID 11/26/16 [ Last Taken Unknown] Dicyclomine HCl [Bentyl] 10 mg PO TID #30 capsule 12/07/16 [Last Taken Unknown] Ciprofloxacin HCl [Cipro] 500 mg PO BID #20 tablet 01/03/17 [Last Taken Unknown] metroNIDAZOLE [Flagyl] 500 mg PO Q8H #30 tablet 01/03/17 [Last Taken Unknown] Ondansetron [Zofran Odt] 8 mg PO Q8H PRN #12 tab 03/07/17 [Last Taken Unknown] - History of Present History Narrative: 52 year old female presents with vomiting and diarrhea that began yesterday evening. Other family members have had similar symptoms. She reports that she has been trying to sip on water and is unable to keep it down. Date (Duration): 03/06/17 Review of Systems - Review of Systems Constitutional: Present: fatigue, malaise. Absent: fever EYE: Present: no symptoms reported ENT: Present: no symptoms reported Respiratory: Absent: shortness of breath, cough Cardiology: Absent: chest pain, palpitations, syncope Gastrointestinal/Abdominal: Present: nausea, vomiting, diarrhea, eating less, drinking less. Absent: abdominal pain Genitourinary: Absent: dysuria, hematuria, decreased urinary output Musculoskeletal: Absent: muscle pain, joint pain Skin: Absent: rash, lesions Neurological: Absent: headache, dizziness/light-headedness Endocrine: Present: no symptoms reported Hematologic/Lymphatic: Present: no symptoms reported Psych: Present: emotional problems - Patient's Past Medical History Patient History - Medical: Anxiety, Depression, Headache, Migraines Patient History - Cardiac/Respiratory: No pertinent hx Patient History - Cancer: No Hx of Cancer Patient History - Surgical Procedures: Patient History - Other: None - Family History Mother Family History - Medical: Diabetes Type 2 Insulin Dependent, Other - Social History Living Situations: home Abuse History: No History of abuse Psych History: Hx of Anxiety, Hx of Depression, Hx of Psychiatric Tx, Current tx /ever been on anti-depressants or anti-anxiety meds Smoking Status: Former smoker - Immunizations Immunizations Up to Date: Yes Hx Pneumococcal Vaccination: Yes History of Influenza Vaccine: Yes Physical Exam - Physical Exam General Appearance: Present: wd/wn, alert, no apparent distress Head Exam: Present: normal inspection Neck: Present: normal inspection, nontender, supple Respiratory: Present: no respiratory distress, normal breath sounds, no accessory muscle use, lungs clear Cardiovascular/Chest: Present: regular rate, rhythm, no murmur Gastrointestinal/Abdominal: Present: normal bowel sounds, nondistended, soft, tenderness - Mild, periumbillical Back Exam: Present: normal inspection, no CVA tenderness Extremity Exam: Present: normal inspection, normal range of motion, no edema Neurological Exam: Present: alert, oriented, normal mood/affect, no motor/ sensory deficits Skin Exam: Present: normal color, warm/dry ED Progress - Vital Signs Patient's Vital Signs:: I have reviewed the patient's vital signs. Vital Signs: Vital Signs 03/07/17 14:42 Temperature 36.6 C Pulse Rate 97 Respiratory 14 Rate Blood Pressure 138/79 O2 Sat by Pulse 97 Oximetry - Progress/Reassessment Chief Complaint: Nausea/Vomiting Progress:: Improved Plan - Plan Plan: Patient was given Zofran ODT while waiting. Was feeling better by the time I examined her. She reports that she needs to leave within the next 30 minutes in order to have a ride home. Discussed checking labs and giving IV fluids. Patient reports that she will return if she worsens. Rx given for Zofran. Departure Clinical Impression: Vomiting and diarrhea - Departure Disposition: Home Follow Up Needed Condition: Stable Instructions: Viral Gastroenteritis, Adult, [id number] Additional Instructions: Liquids as discussed, advance diet as tolerated Return for prolonged/worsening symptoms Prescriptions: Ondansetron [Zofran Odt] 8 mg PO Q8H PRN #12 tab PRN Reason: Nausea
[2017-03-07 16:37] VITALS: BP 152/90
== END 2017-03-07 16:38 | disposition home or self-care (01) ==
LOC: ER 14:22
DX: R11.10 Vomiting, unspecified (principal); R19.7 Diarrhea, unspecified; Z87.891 Personal history of nicotine dependence

== ENCOUNTER 2017-04-15 10:13 | Emergency (ER) | payer MEDICARE, MEDICAID ==
[2017-04-15 10:20] VITALS: BP 113/72
[2017-04-15] MEDS ORDERED: PROMETHAZINE HCL 25 MG/ML AMPUL IM ONE (10:40)
[2017-04-15] MEDS ORDERED: NALBUPHINE HCL 20 MG/ML AMPUL IM ONE (10:40)
[2017-04-15] MEDS ORDERED: PROMETHAZINE HCL 25 MG/ML AMPUL ONE (10:41)
[2017-04-15] MEDS ORDERED: NALBUPHINE HCL 20 MG/ML AMPUL ONE (10:41)
--- NOTE | 2017-04-15 10:41 | ERNOTE ---
Headache ER HPI - Narrative Date of Service: 04/15/17 - General Presenting Symptoms: "migraine" Time Seen by Provider: 04/15/17 10:25 Source: patient, RN notes reviewed, old records Exam Limitations: no limitations - Immun/Allergies/Home Medications Immunizations: IMMUNIZATION HX Immunizations Up to Date Yes History of Influenza Vaccine Yes Hx Pneumococcal Vaccination Yes Allergies/Adverse Reactions: Allergies diclofenac sodium [From Voltaren] Allergy (Intermediate, Verified 04/15/17 10:20 ) seizure paroxetine HCl [From Paxil] Allergy (Mild, Verified 04/15/17 10:20) rash venlafaxine HCl [From Effexor] Allergy (Mild, Verified 04/15/17 10:20) rash ziprasidone HCl [From Geodon] Adverse Reaction (Severe, Verified 04/15/17 10:20) Itching ziprasidone mesylate [From Geodon] Adverse Reaction (Severe, Verified 04/15/17 10:20) Itching sumatriptan [From Imitrex] Adverse Reaction (Intermediate, Verified 04/15/17 10: 20) Nausea sumatriptan succinate [From Imitrex] Adverse Reaction (Intermediate, Verified 10:20) Nausea ketorolac tromethamine [From Toradol] Adverse Reaction (Mild, Verified 04/15/17 10:20) Vomiting tramadol Adverse Reaction (Mild, Verified 04/15/17 10:20) Vomiting Home Medications: HOME MEDICATIONS ALPRAZolam [Xanax] 1 mg PO QID #120 tab 03/23/15 [Last Taken 04/06/15] Nebulizer [Compact Ultrasonic Nebulizer] 1 each MC QID #1 kit 03/01/16 [Last Taken Unknown] Albuterol Sulfate [Proair Hfa] 2 puff IH QID PRN #1 inhaler 08/16/16 [Last Taken Unknown] Albuterol Sulfate/Ipratropium [Duoneb 2.5-0.5MG/3ML Soln] 3 ml IH BID 11/26/16 [ Last Taken Unknown] - History of Present Illness Narrative: 52 year old female presents to the ED from home for a migraine that began yesterday. She has taken Zofran with improvement in her nausea. She reports that her headache is the same as her usual migraine. She does not currently have a PCP. Date (Duration): 04/14/17 Timing of Headache: gradual Context Headache: Present: new onset Severity Maximum: Present: severe Severity-Currently: Present: severe Headache frequency: Present: frequent headaches Exacerbated by:: Reports: light Prior Treament: Reports: recently seen, treated by physician, similar symptoms before Review of Systems - Review of Systems Constitutional: Absent: recent illness, fever, chills EYE: Absent: eye pain, vision changes ENT: Absent: nose congestion, sore throat Respiratory: Absent: shortness of breath, cough Cardiology: Absent: chest pain, syncope Gastrointestinal/Abdominal: Absent: vomiting, abdominal pain Genitourinary: Present: no symptoms reported Musculoskeletal: Absent: back pain, neck pain Skin: Absent: rash, lesions Neurological: Present: headache. Absent: dizziness/light-headedness, weakness, numbness, tingling Endocrine: Present: no symptoms reported Hematologic/Lymphatic: Present: no symptoms reported Psych: Absent: anxiety, depressed - Patient's Past Medical History Patient History - Medical: Anxiety, Depression, Headache, Migraines Patient History - Cardiac/Respiratory: No pertinent hx Patient History - Cancer: No Hx of Cancer Patient History - Surgical Procedures: Patient History - Other: None - Family History Mother Family History - Medical: Diabetes Type 2 Insulin Dependent, Other - Social History Living Situations: home Abuse History: No History of abuse Psych History: Hx of Anxiety, Hx of Depression, Hx of Psychiatric Tx, Current tx /ever been on anti-depressants or anti-anxiety meds Smoking Status: Former smoker Alcohol Use: occasionally Drug Use: none - Immunizations Immunizations Up to Date: Yes Hx Pneumococcal Vaccination: Yes History of Influenza Vaccine: Yes Physical Exam - Physical Exam General Appearance: Present: alert, no apparent distress, obese, cheerful Head Exam: Present: normal inspection, no evidence of injury Eye Exam: Normal inspection: bilateral, PERRL: bilateral Ears, Nose, Throat: Present: normal ENT inspection, normal pharynx Neck: Present: normal inspection, nontender, supple Respiratory: Present: no respiratory distress, normal breath sounds, no accessory muscle use, lungs clear Cardiovascular/Chest: Present: regular rate, rhythm, no murmur Extremity Exam: Present: normal inspection, normal range of motion, no edema Neurological Exam: Present: alert, oriented, normal mood/affect, no motor/ sensory deficits Skin Exam: Present: normal color, warm/dry ED Progress - Vital Signs Patient's Vital Signs:: I have reviewed the patient's vital signs. Vital Signs: Vital Signs 04/15/17 10:16 Temperature 35.6 C L Pulse Rate 97 Respiratory 14 Rate Blood Pressure 113/72 O2 Sat by Pulse 100 Oximetry - Progress/Reassessment Chief Complaint: Headache Progress:: Improved Departure Clinical Impression: Migraine Qualifiers: Migraine type: unspecified Status migrainosus presence: without status migrainosus Intractability: not intractable Qualified Code(s): G43.909 - Migraine, unspecified, not intractable, without status migrainosus - Departure Disposition: Home Follow Up Needed Condition: Good Instructions: Migraine Headache, [id number]
== END 2017-04-15 10:51 | disposition home or self-care (01) ==
LOC: ER 10:13
DX: G43.909 Migraine, unspecified, not intractable, without status migrainosus; Z87.891 Personal history of nicotine dependence; F41.9 Anxiety disorder, unspecified

== ENCOUNTER 2017-04-21 17:23 | Emergency (ER) | payer MEDICARE, MEDICAID ==
--- NOTE | 2017-04-21 19:03 | ERNOTE ---
Lower Extremity HPI - Narrative Date of Service: 04/21/17 - General Lower Extremities Pain: ankle: right Time Seen by Provider: 04/21/17 19:03 Source: patient, RN notes reviewed Exam Limitations: no limitations - Immun/Allergies/Home Medications Immunizations: IMMUNIZATION HX Immunizations Up to Date Yes History of Influenza Vaccine Yes Hx Pneumococcal Vaccination Yes Allergies/Adverse Reactions: Allergies Allergy/AdvReac Type Severity Reaction Status Date / Time diclofenac sodium Allergy Intermediate seizure Verified 04/21/17 17:38 [From Voltaren] paroxetine HCl [From Paxil] Allergy Mild rash Verified 04/21/17 17:38 venlafaxine HCl Allergy Mild rash Verified 04/21/17 17:38 [From Effexor] ziprasidone HCl [From Geodon] AdvReac Severe Itching Verified 04/21/17 17:38 ziprasidone mesylate AdvReac Severe Itching Verified 04/21/17 17:38 [From Geodon] sumatriptan [From Imitrex] AdvReac Intermediate Nausea Verified 04/21/17 17:38 sumatriptan succinate AdvReac Intermediate Nausea Verified 04/21/17 17:38 [From Imitrex] ketorolac tromethamine AdvReac Mild Vomiting Verified 04/21/17 17:38 [From Toradol] tramadol AdvReac Mild Vomiting Verified 04/21/17 17:38 Home Medications: HOME MEDICATIONS ALPRAZolam [Xanax] 1 mg PO QID #120 tab 03/23/15 [Last Taken 04/06/15] Nebulizer [Compact Ultrasonic Nebulizer] 1 each MC QID #1 kit 03/01/16 [Last Taken Unknown] Albuterol Sulfate [Proair Hfa] 2 puff IH QID PRN #1 inhaler 08/16/16 [Last Taken Unknown] Albuterol Sulfate/Ipratropium [Duoneb 2.5-0.5MG/3ML Soln] 3 ml IH BID 11/26/16 [ Last Taken Unknown] - History of Present Illness Narrative: 52 year old female presents for an injury to her right ankle. She twisted the ankle 5 days ago when she fell down her steps. She states she has sprained this ankle in the past. Date (Duration): 04/16/17 Occurred: last week Location of Incident: home Method of Injury: Reports: fell, twisted Reason for Fall: Reports: tripped Modifying Factors - (Improves): Reports: immobilization, rest Modifying Factors - (Worsens): Reports: movement Associated Symptoms: Denies: unable to bear weight, other injuries Other Injuries: Reports: none Subsequent Symptoms: Denies: sensory loss, numbness, motor loss Prior Treament: Reports: recently seen Review of Systems - Review of Systems Constitutional: Absent: recent illness, fever, malaise EYE: Present: no symptoms reported ENT: Present: no symptoms reported Respiratory: Present: no symptoms reported Cardiology: Present: no symptoms reported Gastrointestinal/Abdominal: Present: no symptoms reported Genitourinary: Present: no symptoms reported Musculoskeletal: Present: muscle pain, joint pain, joint swelling Skin: Absent: lesions, lumps, change in color Neurological: Absent: weakness, numbness, tingling Endocrine: Present: no symptoms reported Hematologic/Lymphatic: Absent: easy bruising, easy bleeding Psych: Present: anxiety, depressed - Patient's Past Medical History Patient History - Medical: Anxiety, Depression, Headache, Migraines Patient History - Cardiac/Respiratory: No pertinent hx Patient History - Cancer: No Hx of Cancer Patient History - Surgical Procedures: Patient History - Other: None LMP (females 10-50): Menopausal - Family History Mother Family History - Medical: Diabetes Type 2 Insulin Dependent, Other - Social History Living Situations: home Abuse History: No History of abuse Psych History: Hx of Anxiety, Hx of Depression, Hx of Psychiatric Tx, Current tx /ever been on anti-depressants or anti-anxiety meds Smoking Status: Former smoker - Immunizations Immunizations Up to Date: Yes Hx Pneumococcal Vaccination: Yes History of Influenza Vaccine: Yes Physical Exam - Physical Exam General Appearance: Present: wd/wn, alert, no apparent distress Head Exam: Present: normal inspection, no evidence of injury Respiratory: Present: no respiratory distress, no accessory muscle use Cardiovascular/Chest: Present: normal peripheral pulses Peripheral Pulses: N=norm/S=strong/W=weak/B=bound/A=absent: Dorsalis-pedis (R): Strong, Dorsalis-pedis (L): Strong Extremity Exam: Present: normal range of motion, no edema, bony tenderness - Right lateral ankle, other - No deformity or ecchymosis present to right ankle. Absent: joint swelling Neurological Exam: Present: alert, oriented, no motor/sensory deficits. Absent : normal mood/affect Skin Exam: Present: normal color, warm/dry ED Progress - Vital Signs Patient's Vital Signs:: I have reviewed the patient's vital signs. Vital Signs: Vital Signs 04/21/17 17:36 Temperature 36.9 C Pulse Rate 106 H Respiratory 15 Rate Blood Pressure 103/72 O2 Sat by Pulse 97 Oximetry - X-Ray X-Ray #1 X-Ray: ankle - Right Interpretation: Interp. by me X-ray Comments: No acute osseous abnormality noted - Progress/Reassessment Chief Complaint: Ankle Injury/ Pain Progress:: Unchanged Procedures Location: Right ankle Pre-Proc Neuro Vasc Exam: normal Pre-Made Type: aircast Splint: sugar-tong Alignment good: Yes Splint applied by: Nurse Post-Proc Neuro Vasc Exam: normal Complications: Pt ching procedure well Departure Clinical Impression: Ankle sprain Qualifiers: Encounter type: initial encounter Involved ligament of ankle: unspecified ligament Laterality: right Qualified Code(s): S93.401A - Sprain of unspecified ligament of right ankle, initial encounter - Departure Disposition: Home Follow Up Needed Condition: Stable Instructions: Ankle Sprain, [id number] Additional Instructions: Wear stirrup splint as needed for support Can still use ice periodically Elevate whenever able Tylenol for pain
[2017-04-21 19:32] VITALS: BP 108/74
== END 2017-04-21 19:25 | disposition home or self-care (01) ==
LOC: ER 17:23
PROC: 2W3QX1Z Immobilization of Right Lower Leg using Splint (ICD-10-PCS; principal; 2017-04-21)
DX: W10.9XXA Fall (on) (from) unspecified stairs and steps, initial encounter; Z87.891 Personal history of nicotine dependence; Y92.009 Unspecified place in unspecified non-institutional (private) residence as the place of occurrence of the external cause; S93.401A Sprain of unspecified ligament of right ankle, initial encounter